=== PATIENT | female | born 1935 | race Caucasian/White ===

== ENCOUNTER 2017-10-14 04:48 | Emergency (ER) | payer MEDICARE, OTHER ==
[2017-10-14 05:31] LABS: ABSOLUTE BASOPHILS # (AUTO) 0.1 10^3/uL (0.0-0.2); ABSOLUTE LYMPHOCYTES (AUTO) 1.3 10^3/uL (0.5-4.7); ABSOLUTE MONOCYTES (AUTO) 0.6 10^3/uL (0.1-1.4); ABSOLUTE NEUT (AUTO) 8.4 10^3/uL (1.7-8.2); BASOPHILS % (AUTO) 0.9 % (0-2); EOSINOPHILS % (AUTO) 0.5 % (0-6); HEMATOCRIT 39.4 % (36.0-47.0); HEMOGLOBIN 13.2 g/dL (12.0-15.5); LYMPHOCYTES % (AUTO) 12.7 % (13-45); MEAN CORPUSCULAR HEMOGLOBIN 31.4 pg (27.0-33.4); MEAN CORPUSCULAR HGB CONC 33.6 g/dL (32.0-36.0); MEAN CORPUSCULAR VOLUME 93 fl (80-97); MONOCYTES % (AUTO) 5.9 % (3-13); PLATELET COUNT 138 10^3/uL (150-450); RED BLOOD COUNT 4.21 10^6/uL (3.72-5.28); RED CELL DISTRIBUTION WIDTH 13.1 % (11.5-14.0); TOTAL CELLS COUNTED % (AUTO) 100 %; WHITE BLOOD COUNT 10.5 10^3/uL (4.0-10.5)
--- NOTE | 2017-10-14 05:39 | ER Document Report ---
ED Medical Screen (RME) - General Chief Complaint: Abdominal Pain Stated Complaint: ABDOMINAL PAIN Time Seen by Provider: 10/14/17 04:52 Notes: 82-year-old female, comes by EMS for abdominal pain and dry heaving 4 since last night. Denies abnormal bowel movements or blood in stool, denies fever. Pain is in the left lower quadrant. Denies current pain or nausea. Cholecystectomy, partial hysterectomy, no other reported abdominal surgeries. No history of atrial fibrillation. TRAVEL OUTSIDE OF THE [place] IN LAST 30 DAYS: No - Related Data Allergies/Adverse Reactions: No Known Allergies Allergy (Verified 10/14/17 05:05) Past Medical History Renal/ Medical History: Denies: Hx Peritoneal Dialysis Physical Exam - Vital signs Vitals: Temp Pulse Resp BP Pulse Ox 97.6 F 90 24 H 145/75 H 99 10/14/17 04:53 10/14/17 04:53 10/14/17 04:53 10/14/17 04:53 10/14/17 04:53 - Abdominal Tenderness: Tender - Tender left lower abdomen, otherwise soft benign abdomen Course - Re-evaluation Re-evalutation: Well-appearing patient, tender left lower quadrant, alert and talkative, beginning workup, patient declines nausea or pain medicine at this time. - Vital Signs Vital signs: Temp Pulse Resp BP Pulse Ox 97.6 F 90 24 H 145/75 H 99 10/14/17 04:53 10/14/17 04:53 10/14/17 04:53 10/14/17 04:53 10/14/17 04:53 - Laboratory Result Diagrams: 10/14/17 05:10 10/14/17 05:10 Laboratory results interpreted by me: 10/14/17 05:10 Plt Count 138 L Seg Neutrophils % 80.0 H Lymphocytes % 12.7 L Absolute Neutrophils 8.4 H Doctor's Discharge - Discharge Referrals: LORI WHITE PA-C [Primary Care Provider] - Follow up as needed
[2017-10-14 05:55] LABS: ALANINE AMINOTRANSFERASE 25 U/L (9-52); ALBUMIN 3.6 g/dL (3.5-5.0); ALKALINE PHOSPHATASE 45 U/L (38-126); ANION GAP 10 (5-19); ASPARTATE AMINO TRANSFERASE 34 U/L (14-36); BILIRUBIN,DIRECT 0.3 mg/dL (0.0-0.4); BILIRUBIN,TOTAL 0.3 mg/dL (0.2-1.3); BLOOD UREA NITROGEN 29 mg/dL (7-20); CALCIUM 9.4 mg/dL (8.4-10.2); CARBON DIOXIDE 29 mmol/L (22-30); CHLORIDE 100 mmol/L (98-107); GLUCOSE 101 mg/dL (75-110); LIPASE 312.3 U/L (23-300); POTASSIUM 4.6 mmol/L (3.6-5.0); SODIUM 139.1 mmol/L (137-145); TOTAL PROTEIN 6.4 g/dL (6.3-8.2)
--- NOTE | 2017-10-14 06:17 | ER Document Report ---
ED General - General Chief Complaint: Abdominal Pain Stated Complaint: ABDOMINAL PAIN Time Seen by Provider: 10/14/17 04:52 Mode of Arrival: Medic Information source: Patient Notes: 82-year-old female presents emergency department by EMS for complaints of left lower quadrant pain that started yesterday. Patient describes the pain as a sharp and stabbing sensation localized in the left lower quadrant. No radiation. No alleviating or exacerbating factors. Patient is having some nausea and dry heaves associated with the pain. She denies any diarrhea, constipation, dysuria, hematuria, melena, hematochezia. Patient states that she has had gallbladder surgery on her abdomen previously. No other surgeries. TRAVEL OUTSIDE OF THE [place] IN LAST 30 DAYS: No - HPI Onset: Yesterday Onset/Duration: Gradual Quality of pain: Sharp, Stabbing Severity: Moderate Associated symptoms: Nausea, Vomiting Exacerbated by: Denies Relieved by: Denies Similar symptoms previously: No Recently seen / treated by doctor: No - Related Data Allergies/Adverse Reactions: No Known Allergies Allergy (Verified 10/14/17 05:05) Past Medical History - General Information source: Patient - Social History Smoking Status: Former Smoker Family History: Reviewed & Not Pertinent Patient has suicidal ideation: No Patient has homicidal ideation: No Renal/ Medical History: Denies: Hx Peritoneal Dialysis Review of Systems - Review of Systems Constitutional: No symptoms reported EENT: No symptoms reported Cardiovascular: No symptoms reported Respiratory: No symptoms reported Gastrointestinal: Abdominal pain, Nausea, Vomiting Genitourinary: No symptoms reported Musculoskeletal: No symptoms reported Skin: No symptoms reported Neurological/Psychological: No symptoms reported -: Yes All other systems reviewed and negative Physical Exam - Vital signs Vitals: Temp Pulse Resp BP Pulse Ox 97.6 F 90 24 H 145/75 H 99 10/14/17 04:53 10/14/17 04:53 10/14/17 04:53 10/14/17 04:53 10/14/17 04:53 Interpretation: Normal - Notes Notes: PHYSICAL EXAMINATION: GENERAL: Well-appearing, well-nourished and in no acute distress. HEAD: Atraumatic, normocephalic. EYES: Pupils equal round and reactive to light, extraocular movements intact, conjunctiva are normal. ENT: Nares patent, oropharynx clear without exudates. Moist mucous membranes. NECK: Normal range of motion, supple without lymphadenopathy LUNGS: Breath sounds clear to auscultation bilaterally and equal. No wheezes rales or rhonchi. HEART: Regular rate and rhythm without murmurs ABDOMEN: Soft, tenderness to palpation in the left lower quadrant., nondistended abdomen. No guarding, no rebound. No masses appreciated. Female : deferred Musculoskeletal: Normal range of motion, no pitting or edema. No cyanosis. NEUROLOGICAL: Cranial nerves grossly intact. Normal speech, normal gait. Normal sensory, motor exams PSYCH: Normal mood, normal affect. SKIN: Warm, Dry, normal turgor, no rashes or lesions noted. Course - Re-evaluation Re-evalutation: 10/14/17 10:23 Labs and imaging obtained. White blood cell count is within normal limits. CT abdomen pelvis done. No acute process identified. Urinalysis is remarkable for signs of urinary tract infection. Patient given a gram of Rocephin while in the emergency department. I will discharge her home on antibiotic medication. Patient instructed to take the medication as directed, to follow- up with her primary care physician this week, and to return to the emergency department for worsening symptoms. Patient is agreeable with plan of care. - Vital Signs Vital signs: Temp Pulse Resp BP Pulse Ox 98.2 F 74 18 109/50 L 94 10/14/17 08:52 10/14/17 08:52 10/14/17 08:52 10/14/17 08:52 10/14/17 08:52 - Laboratory Result Diagrams: 10/14/17 05:10 10/14/17 05:10 Laboratory results interpreted by me: 10/14/17 10/14/17 10/14/17 05:10 05:10 08:55 Plt Count 138 L Seg Neutrophils % 80.0 H Lymphocytes % 12.7 L Absolute Neutrophils 8.4 H BUN 29 H Est GFR (Non-Af Amer) 54 L Lipase 312.3 H Urine Nitrite POSITIVE H Ur Leukocyte Esterase MODERATE H Urine Ascorbic Acid 40 H Discharge - Discharge Clinical Impression: Urinary tract infection Qualifiers: Urinary tract infection type: site unspecified Hematuria presence: without hematuria Qualified Code(s): N39.0 - Urinary tract infection, site not specified Disposition: HOME, SELF-CARE Instructions: Urinary Tract Infection ([facility]) Prescriptions: Cephalexin Monohydrate [Keflex 500 mg Capsule] 500 mg PO Q6H 7 Days #28 capsule Referrals: LORI WHITE PA-C [Primary Care Provider] - Follow up as needed
[2017-10-14 09:21] LABS: APPEARANCE,URINE SLIGHTLY-CLOUDY; BILIRUBIN,URINE NEGATIVE (NEGATIVE); COLOR,URINE YELLOW; GLUCOSE, URINE NEGATIVE (NEGATIVE); KETONES,URINE NEGATIVE (NEGATIVE); LEUKOCYTE ESTERASE,URINE MODERATE (NEGATIVE); NITRITE,URINE POSITIVE (NEGATIVE); PROTEIN,URINE NEGATIVE (NEGATIVE); URINE SPECIFIC GRAVITY 1.015; UROBILINOGEN,URINE NEGATIVE mg/dL (<2.0)
--- NOTE | 2017-10-14 10:17 | RADIOLOGY REPORT (SQ) ---
EXAM DESCRIPTION: CT ABD/PELVIS WITH IV ORAL COMPLETED DATE/TIME: 10/14/2017 10:02 am REASON FOR STUDY: LLQ abdominal pain COMPARISON: None. TECHNIQUE: CT scan of the abdomen and pelvis performed using helical scanning technique with dynamic intravenous contrast injection. Patient drank oral contrast. Images reviewed with lung, soft tissue , and bone windows. Reconstructed coronal and sagittal MPR images reviewed. Delayed images for evalua tion of the urinary system also acquired. All images stored on PACS. All CT scanners at this facility use dose modulation, iterative reconstruction, and/or weight based d osing when appropriate to reduce radiation dose to as low as reasonably achievable (ALARA). [facility]: Dose Right [facility]: CareDose [facility]: Dose Right [facility]: Teradose 4D [facility]: myParcelDelivery CONTRAST TYPE AND DOSE: contrast/concentration: Isovue 370.00 mg/ml; Total Contrast Delivered: 39.0 ml; Total Saline Delivered: 65.0 ml RENAL FUNCTION: Creatinine 1.0 RADIATION DOSE: CT Rad equipment meets quality standard of care and radiation dose reduction techniq ues were employed. CTDIvol: 4.8 mGy. DLP: 834 mGy-cm.. LIMITATIONS: None. FINDINGS: LOWER CHEST: No significant findings. No nodules or infiltrates. LIVER: Normal size. No masses. Benign prominence of the common duct and mild prominence of the intra hepatic ducts post cholecystectomy. SPLEEN: Normal size. No focal lesions. PANCREAS: No masses. No significant calcifications. No adjacent inflammation or peripancreatic fluid collections. Pancreatic duct not dilated. GALLBLADDER: Surgically absent ADRENAL GLANDS: No significant masses or asymmetry. RIGHT KIDNEY AND URETER: No solid masses. Multiple right renal cortical cysts, largest is 3 cm in th e right upper pole kidney. No significant calcifications. No hydronephrosis or hydroureter. LEFT KIDNEY AND URETER: No solid masses. Multiple left renal cortical cysts, the largest is 1 cm in size in the left upper pole kidney. No significant calcifications. No hydronephrosis or hydrourete r. AORTA AND VESSELS: Heavily calcified abdominal aorta and proximal visceral arteries. No abdominal ao rtic dissection or aneurysm. RETROPERITONEUM: No retroperitoneal adenopathy, hemorrhage or masses. BOWEL AND PERITONEAL CAVITY: Patient drank oral contrast. No CT evidence of bowel obstruction. No s ignificant colonic diverticulosis. No free intraperitoneal air or fluid. APPENDIX: Normal. PELVIS: Post hysterectomy ABDOMINAL WALL: No masses. No hernias. BONES: No significant or acute findings. OTHER: No other significant finding. IMPRESSION: NO SIGNIFICANT OR ACUTE FINDING IN THE ABDOMEN OR PELVIS ON CT SCAN WITH IV CONTRAST. TECHNICAL DOCUMENTATION: JOB ID: [id number] Quality ID # [id number]: Final reports with documentation of one or more dose reduction techniques (e.g., Au tomated exposure control, adjustment of the mA and/or kV according to patient size, use of iterative reconstruction technique) 2010 [employer]- All Rights Reserved Reading location - IP/workstation name: [email or web address]
[2017-10-14] MEDS ORDERED: CEFTRIAXONE INJ 1000 MG VIAL IV ONE (10:22)
[2017-10-14 12:21] VITALS: BP 101/46
== END 2017-10-14 12:21 | disposition home or self-care (01) ==
LOC: ER 04:48
DX: N39.0 Urinary tract infection, site not specified (principal); R10.32 Left lower quadrant pain; R11.2 Nausea with vomiting, unspecified; Z87.891 Personal history of nicotine dependence
CPT/HCPCS: 99284; 51701; 96365; 36415; 87040; 83605; 83690; 85025; 87077; 80053; 81001; 87186; 74177; J0696

== ENCOUNTER 2018-01-18 18:53 | Inpatient (IN) | payer MEDICARE, OTHER ==
[2018-01-18] MEDS ORDERED: MORPHINE SULFATE 10 MG/ML INJ IV ONE (19:42)
[2018-01-18] MEDS ORDERED: ONDANSETRON HCL INJ/PF 4 MG/2 ML SDV IV ONE (19:42)
--- NOTE | 2018-01-18 19:45 | ER Document Report ---
ED Medical Screen (RME) - General Chief Complaint: Abdominal Pain Stated Complaint: ABDOMINAL PAIN Time Seen by Provider: 01/18/18 19:42 Mode of Arrival: Ambulatory Information source: Patient Notes: 81-year-old female presents with left lower quadrant pain that started today. She describes the pain as a constant stabbing pain. Patient has had associated nausea, vomiting. She does admit to prior similar symptoms when she was diagnosed with a urinary tract infection in October 2017. I have greeted and performed a rapid initial assessment of this patient. A comprehensive ED assessment and evaluation of the patient, analysis of test results and completion of medical decision making process we will be contacted by additional ED providers. PHYSICAL EXAMINATION: Vital signs reviewed GENERAL: Ill-appearing, bent over in pain, actively vomiting, moderate distress LUNGS: No respiratory distress NEUROLOGICAL: A and O x3 TRAVEL OUTSIDE OF THE [place] IN LAST 30 DAYS: No - HPI Onset: This morning Onset/Duration: Gradual, Persistent, Worse Quality of pain: Stabbing Severity: Moderate Associated Symptoms: Abdominal pain, Nausea, Vomiting Exacerbated by: Denies Relieved by: Denies Similar symptoms previously: Yes Recently seen / treated by doctor: No - Related Data Smoking: Cigarettes Frequency of alcohol use: None Drug Abuse: None Allergies/Adverse Reactions: No Known Allergies Allergy (Verified 10/14/17 05:05) Past Medical History - Social History Chew tobacco use (# tins/day): No Frequency of alcohol use: Rare Drug Abuse: None Renal/ Medical History: Denies: Hx Peritoneal Dialysis Physical Exam - Vital signs Vitals: Temp Pulse Resp BP Pulse Ox 98.1 F 102 H 20 172/70 H 98 01/18/18 19:01 01/18/18 19:01 01/18/18 19:01 01/18/18 19:01 01/18/18 19:01 Course - Vital Signs Vital signs: Temp Pulse Resp BP Pulse Ox 98.1 F 102 H 20 172/70 H 98 01/18/18 19:01 01/18/18 19:01 01/18/18 19:01 01/18/18 19:01 01/18/18 19:01 Doctor's Discharge - Discharge Referrals: LORI WHITE PA-C [Primary Care Provider] - Follow up as needed
[2018-01-18 20:36] LABS: ALANINE AMINOTRANSFERASE 31 U/L (9-52); ALBUMIN 4.4 g/dL (3.5-5.0); ALKALINE PHOSPHATASE 57 U/L (38-126); ANION GAP 14 (5-19); ASPARTATE AMINO TRANSFERASE 40 U/L (14-36); BILIRUBIN,DIRECT 0.3 mg/dL (0.0-0.4); BILIRUBIN,TOTAL 0.4 mg/dL (0.2-1.3); BLOOD UREA NITROGEN 21 mg/dL (7-20); CALCIUM 10.3 mg/dL (8.4-10.2); CARBON DIOXIDE 27 mmol/L (22-30); CHLORIDE 94 mmol/L (98-107); GLUCOSE 105 mg/dL (75-110); LIPASE 460.9 U/L (23-300); POTASSIUM 4.9 mmol/L (3.6-5.0); SODIUM 134.7 mmol/L (137-145); TOTAL PROTEIN 7.6 g/dL (6.3-8.2)
[2018-01-18 21:05] LABS: ABSOLUTE EOSINOPHILS # (AUTO) 0.1 10^3/uL (0.0-0.6); ABSOLUTE MONOCYTES (AUTO) 0.4 10^3/uL (0.1-1.4); ABSOLUTE NEUT (AUTO) 8.5 10^3/uL (1.7-8.2); BASOPHILS % (AUTO) 0.5 % (0-2); EOSINOPHILS % (AUTO) 0.8 % (0-6); HEMATOCRIT 41.4 % (36.0-47.0); HEMOGLOBIN 14.3 g/dL (12.0-15.5); LYMPHOCYTES % (AUTO) 10.2 % (13-45); MEAN CORPUSCULAR HEMOGLOBIN 32.5 pg (27.0-33.4); MEAN CORPUSCULAR HGB CONC 34.6 g/dL (32.0-36.0); MEAN CORPUSCULAR VOLUME 94 fl (80-97); MONOCYTES % (AUTO) 3.7 % (3-13); PLATELET COUNT 112 10^3/uL (150-450); RED BLOOD COUNT 4.41 10^6/uL (3.72-5.28); RED CELL DISTRIBUTION WIDTH 12.7 % (11.5-14.0); SEGMENTED NEUTROPHILS % (AUTO) 84.8 % (42-78); TOTAL CELLS COUNTED % (AUTO) 100 %
[2018-01-18] MEDS ORDERED: ONDANSETRON HCL INJ/PF 4 MG/2 ML SDV ONE (21:08)
--- NOTE | 2018-01-18 21:44 | ER Document Report ---
ED General - General Chief Complaint: Abdominal Pain Stated Complaint: ABDOMINAL PAIN Time Seen by Provider: 01/18/18 19:42 Mode of Arrival: Ambulatory Notes: Patient is an 81-year-old female with a past medical history of chronic tobacco abuse, severe malnourishment, who presents with approximately 8 hours of left lower quadrant abdominal pain, nausea and vomiting. She states that the pain started relatively abruptly and has been progressively worsening since that time. She describes it as a dull, throbbing, aching pain to her left lower abdomen. Nothing improves or worsens this pain. She denies a history of similar pain in the past. She has not seen her general doctor regarding today' s concerns. She denies fever or constitutional symptoms. No dysuria or diarrhea. TRAVEL OUTSIDE OF THE [place] IN LAST 30 DAYS: No - Related Data Allergies/Adverse Reactions: No Known Allergies Allergy (Verified 10/14/17 05:05) Past Medical History - General Information source: Patient - Social History Smoking Status: Current Every Day Smoker Chew tobacco use (# tins/day): No Frequency of alcohol use: Rare Drug Abuse: None Lives with: Family Family History: Reviewed & Not Pertinent Patient has suicidal ideation: No Patient has homicidal ideation: No Renal/ Medical History: Denies: Hx Peritoneal Dialysis Review of Systems - Review of Systems Notes: Constitutional: Negative for fever. HENT: Negative for sore throat. Eyes: Negative for visual changes. Cardiovascular: Negative for chest pain. Respiratory: Negative for shortness of breath. Gastrointestinal: Positive for abdominal pain and vomiting Genitourinary: Negative for dysuria. Musculoskeletal: Negative for back pain. Skin: Negative for rash. Neurological: Negative for headaches, weakness or numbness. 10 point ROS negative except as marked above and in HPI. Physical Exam - Vital signs Vitals: Temp Pulse Resp BP Pulse Ox 98.1 F 102 H 20 172/70 H 98 01/18/18 19:01 01/18/18 19:01 01/18/18 19:01 01/18/18 19:01 01/18/18 19:01 Interpretation: Hypertensive, Tachycardic Notes: PHYSICAL EXAMINATION: GENERAL: Cachectic but in no acute distress HEAD: Atraumatic, normocephalic. EYES: Pupils equal round and reactive to light, extraocular movements intact, sclera anicteric, conjunctiva are normal. ENT: nares patent, oropharynx clear without exudates. Moderately dry mucous membranes. NECK: Normal range of motion, supple without lymphadenopathy LUNGS: Breath sounds clear to auscultation bilaterally and equal. No wheezes rales or rhonchi. HEART: Regular rate and rhythm without murmurs ABDOMEN: Soft, mild focal tenderness to the left lower quadrant, no other localized areas of tenderness normoactive bowel sounds. No guarding, no rebound. No masses appreciated. EXTREMITIES: Normal range of motion, no pitting or edema. No cyanosis. NEUROLOGICAL: No focal neurological deficits. Moves all extremities spontaneously and on command. PSYCH: Normal mood, normal affect. SKIN: Warm, Dry, normal turgor, no rashes or lesions noted. Course - Re-evaluation Re-evalutation: 01/18/18 21:43 Presentation of an emaciated 81-year-old female in no distress with associated left lower quadrant abdominal pain and vomiting. History and exam most consistent with acute diverticulitis. Alternative considerations would include localized colitis, less likely mesenteric ischemia. I do not suspect an atypical presentation of ACS. Will proceed with CT of the abdomen and pelvis, labs and reassess the patient 01/18/18 22:18 CT the abdomen pelvis shows an acute bowel obstruction and the patient is not vomiting at a much more frequent interval. She does have a past surgical history of a cholecystectomy and it appears that this may be secondary to adhesions. I have discussed with the surgeon Dr. Gould who has accepted the patient and will come to the bedside to assess her. - Vital Signs Vital signs: Temp Pulse Resp BP Pulse Ox 98.1 F 102 H 20 172/70 H 98 01/18/18 19:01 01/18/18 19:01 01/18/18 19:01 01/18/18 19:01 01/18/18 19:01 - Laboratory Result Diagrams: 01/18/18 19:58 01/18/18 19:58 Laboratory results interpreted by me: 01/18/18 01/18/18 19:58 19:58 Plt Count 112 L Seg Neutrophils % 84.8 H Lymphocytes % 10.2 L Absolute Neutrophils 8.5 H Sodium 134.7 L Chloride 94 L BUN 21 H Calcium 10.3 H AST 40 H Lipase 460.9 H - Diagnostic Test Radiology reviewed: Reports reviewed Discharge - Discharge Clinical Impression: Small bowel obstruction, Abdominal pain, left lower quadrant Nausea and vomiting Qualifiers: Vomiting type: unspecified Vomiting Intractability: non-intractable Qualified Code(s): R11.2 - Nausea with vomiting, unspecified Condition: Fair Disposition: ADMITTED INPATIENT Admitting Provider: Surgicalist Unit Admitted: Surgical Floor Referrals: LORI WHITE PA-C [Primary Care Provider] - Follow up as needed
--- NOTE | 2018-01-18 21:51 | RADIOLOGY REPORT (SQ) ---
EXAM DESCRIPTION: CT ABDOMEN PELVIS WITH IV CONTRAST COMPLETED DATE/TME: 01/18/2018 20:42 CLINICAL HISTORY: 81 years, Female, llq ab pain This exam was performed according to our departmental dose-optimization program which includes automated exposure control, adjustment of the mA and/or kVp according to patient size and/or use of iterative reconstruction technique where applicable. FINDINGS: Visualized lung bases are within normal limits. Liver, spleen, pancreas, adrenal glands are within normal limits. Status post cholecystectomy. Mild central biliary dilatation, tapers to normal diameter at the level of the ampulla, likely postcholecystectomy.. Kidneys demonstrate multiple small bilateral renal cysts. No hydronephrosis. There are mildly dilated loops of small bowel noted with transition point in the mid pelvis to decompressed loops of small bowel. Transition point appears to be in the proximal to mid ileum. There are air-fluid levels noted in the proximal bowel loops. Mild mesenteric edema in the mid pelvis near the point of transition. No significant free fluid or free air. No fluid collections. IMPRESSION: Findings suspicious for moderate grade mid small bowel obstruction in level of the proximal to mid ileum. This likely due to adhesions. No abscess.
[2018-01-18] MEDS ORDERED: MIDAZOLAM 2 MG/2 ML INJ IV ONE (22:16)
[2018-01-18] MEDS ORDERED: KETOROLAC TROMETHAMINE INJ/PF 30 MG/1 ML SDV IV ONE (22:16)
--- NOTE | 2018-01-18 23:00 | PDOC H&P ---
History of Present Illness Admission Date/PCP: LORI WHITE PA-C Patient complains of: LLQ pains History of Present Illness: BECKIE HERNANDEZ is a 81 year old female suddenly c/o LLQ pains at 12 noon associated with N/V. Pains are steady.Last BM was yesterday. Denies fever/ chills. Past Medical History Cardiac Medical History: Reports: Hyperlipidema Past Surgical History Past Surgical History: Reports: Cholecystectomy - laparoscopic about 20 years ago, Other - Biopsy of Cervix Social History Lives with: Family Smoking Status: Current Every Day Smoker Frequency of Alcohol Use: None Hx Recreational Drug Use: Yes Family History Family History: Reviewed & Not Pertinent Parental Family History Reviewed: Yes Children Family History Reviewed: No Sibling(s) Family History Reviewed.: No Medication/Allergy Home Medications: Cephalexin Monohydrate [Keflex 500 mg Capsule] 500 mg PO Q6H 7 Days #28 capsule 10/14/17 Allergies/Adverse Reactions: No Known Allergies Allergy (Verified 10/14/17 05:05) Review of Systems Constitutional: PRESENT: as per HPI Ears: PRESENT: other - no visual/hearing changes Nose, Mouth, and Throat: PRESENT: other - c/o dry mouth Cardiovascular: PRESENT: other - no chest pains/cough Genitourinary: PRESENT: other - no dysuria Neurological: PRESENT: other - no seizures Physical Exam Vital Signs: Temp Pulse Resp BP Pulse Ox 98.1 F 102 H 20 172/70 H 98 01/18/18 19:01 01/18/18 19:01 01/18/18 19:01 01/18/18 19:01 01/18/18 19:01 Intake & Output 01/17/18 01/18/18 01/19/18 06:59 06:59 06:59 Weight 31 kg General appearance: PRESENT: mild distress Head exam: PRESENT: atraumatic Eye exam: PRESENT: conjunctiva pink Mouth exam: PRESENT: dry mucosa Neck exam: PRESENT: full ROM Respiratory exam: PRESENT: clear to auscultation chester Cardiovascular exam: PRESENT: tachycardia Pulses: PRESENT: normal radial pulses Vascular exam: PRESENT: normal capillary refill GI/Abdominal exam: PRESENT: soft, tenderness - LLQ Rectal exam: PRESENT: deferred Extremities exam: PRESENT: full ROM Musculoskeletal exam: PRESENT: ambulatory Neurological exam: PRESENT: alert, oriented to person, oriented to place, oriented to time, oriented to situation Psychiatric exam: PRESENT: appropriate affect Skin exam: PRESENT: normal color, warm Results Laboratory Results: 01/18/18 19:58 01/18/18 19:58 01/18/18 01/18/18 19:58 19:58 WBC 10.0 RBC 4.41 Hgb 14.3 Hct 41.4 MCV 94 MCH 32.5 MCHC 34.6 RDW 12.7 Plt Count 112 L Seg Neutrophils % 84.8 H Lymphocytes % 10.2 L Monocytes % 3.7 Eosinophils % 0.8 Basophils % 0.5 Absolute Neutrophils 8.5 H Absolute Lymphocytes 1.0 Absolute Monocytes 0.4 Absolute Eosinophils 0.1 Absolute Basophils 0.0 Sodium 134.7 L Potassium 4.9 Chloride 94 L Carbon Dioxide 27 Anion Gap 14 BUN 21 H Creatinine 0.90 Est GFR ( Amer) > 60 Est GFR (Non-Af Amer) > 60 Glucose 105 Calcium 10.3 H Total Bilirubin 0.4 AST 40 H ALT 31 Alkaline Phosphatase 57 Total Protein 7.6 Albumin 4.4 Lipase 460.9 H Impressions: Abdomen/Pelvis CT 01/18/18 20:42 IMPRESSION: Findings suspicious for moderate grade mid small bowel obstruction in level of the proximal to mid ileum. This likely due to adhesions. No abscess. Assessment & Plan - Time Time Spent: 30 to 50 Minutes - Inpatient Certification Medical Necessity: Need For IV Fluids, Need for Pain Control, Risk of Complication if Not Cared For in Hospital - Plan Summary Plan Summary: NGT Hydrate Possible SBFT with gastrograffin if has not resolved SBO
--- NOTE | 2018-01-18 23:39 | RADIOLOGY REPORT (SQ) ---
Portable chest Compared to chest radiograph dated 11/03/2015. HISTORY: NG tube placement. FINDINGS: NG tube is in place with tip below the diaphragm in the stomach. Lungs are clear. No pleural effusions. Moderately dilated loops of small bowel are noted below the diaphragm. IMPRESSION: Enteric tube in place.
[2018-01-19] MEDS ORDERED: KETOROLAC TROMETHAMINE INJ/PF 30 MG/1 ML SDV IV PRN (00:26)
[2018-01-19] MEDS ORDERED: NORMAL SALINE 1000 ML 1,000 ML IV PRN (00:26)
[2018-01-19 06:02] LABS: HEMATOCRIT 36.4 % (36.0-47.0); HEMOGLOBIN 12.6 g/dL (12.0-15.5); MEAN CORPUSCULAR HEMOGLOBIN 32.2 pg (27.0-33.4); MEAN CORPUSCULAR HGB CONC 34.6 g/dL (32.0-36.0); MEAN CORPUSCULAR VOLUME 93 fl (80-97); PLATELET COUNT 110 10^3/uL (150-450); RED BLOOD COUNT 3.92 10^6/uL (3.72-5.28); RED CELL DISTRIBUTION WIDTH 12.5 % (11.5-14.0); WHITE BLOOD COUNT 8.6 10^3/uL (4.0-10.5)
[2018-01-19 07:24] LABS: ALANINE AMINOTRANSFERASE 26 U/L (9-52); ALBUMIN 3.1 g/dL (3.5-5.0); ALKALINE PHOSPHATASE 40 U/L (38-126); ANION GAP 11 (5-19); ASPARTATE AMINO TRANSFERASE 33 U/L (14-36); BILIRUBIN,DIRECT 0.3 mg/dL (0.0-0.4); BILIRUBIN,TOTAL 0.4 mg/dL (0.2-1.3); BLOOD UREA NITROGEN 21 mg/dL (7-20); CALCIUM 8.9 mg/dL (8.4-10.2); CARBON DIOXIDE 26 mmol/L (22-30); CHLORIDE 98 mmol/L (98-107); GLUCOSE 69 mg/dL (75-110); POTASSIUM 4.5 mmol/L (3.6-5.0); SODIUM 134.5 mmol/L (137-145); TOTAL PROTEIN 5.7 g/dL (6.3-8.2)
--- NOTE | 2018-01-19 09:12 | PDOC PROGRESS REPORT ---
Subjective Progress Note for:: 01/19/18 Subjective:: Patient still complaining of left lower quadrant pain; watery blood-tinged nasogastric drainage. Reason For Visit: PARTIAL SMALL BOWEL OBSTRUCTION DUE TO ADHESIONS Physical Exam Vital Signs: Temp Pulse Resp BP Pulse Ox 98.2 F 77 16 108/51 L 98 01/19/18 08:11 01/19/18 08:11 01/19/18 08:11 01/19/18 08:11 01/19/18 08:11 Intake & Output 01/18/18 01/19/18 01/20/18 06:59 06:59 06:59 Intake Total 0 Output Total 200 Balance -200 Weight 34.4 kg General appearance: PRESENT: mild distress GI/Abdominal exam: PRESENT: other - Abdomen scaphoid, hypoactive bowel sounds, no peritoneal signs no rigidity minimal lower quadrant tenderness. No distention. Bowel sounds hypoactive Results Laboratory Results: 01/19/18 05:10 01/19/18 05:10 01/19/18 01/19/18 05:10 05:10 WBC 8.6 RBC 3.92 Hgb 12.6 Hct 36.4 MCV 93 MCH 32.2 MCHC 34.6 RDW 12.5 Plt Count 110 L Sodium 134.5 L Potassium 4.5 Chloride 98 Carbon Dioxide 26 Anion Gap 11 BUN 21 H Creatinine 0.82 Est GFR ( Amer) > 60 Est GFR (Non-Af Amer) > 60 Glucose 69 L Calcium 8.9 Total Bilirubin 0.4 AST 33 ALT 26 Alkaline Phosphatase 40 Total Protein 5.7 L Albumin 3.1 L Impressions: Chest X-Ray 01/18/18 00:00 IMPRESSION: Enteric tube in place. Abdomen/Pelvis CT 01/18/18 20:42 IMPRESSION: Findings suspicious for moderate grade mid small bowel obstruction in level of the proximal to mid ileum. This likely due to adhesions. No abscess. Assessment & Plan - Diagnosis (1) Small bowel obstruction Is this a current diagnosis for this admission?: Yes Plan: Impression: Patient no worse, possibly improved clinically; suspect colonic source of problem secondary to constipation. Recommendations: 1. Proceed with upper GI and small bowel follow-through. 2. We will increase IV fluids. 3. Hold off on any narcotics.
[2018-01-19] MEDS: KETOROLAC TROMETHAMINE INJ/PF 30 MG/1 ML SDV IV PRN ×3 (10:20→23:26)
[2018-01-19] MEDS: ONDANSETRON HCL INJ/PF 4 MG/2 ML SDV IV PRN (11:54)
[2018-01-19] MEDS: DEXTROSE 5%-WATER 1000 ML 1,000 ML IV PRN ×2 (13:00→19:35)
[2018-01-19] MEDS ORDERED: PROMETHAZINE HCL 25 MG SUPP.RECT PR ONE (15:00)
--- NOTE | 2018-01-19 16:08 | RADIOLOGY REPORT (SQ) ---
EXAM DESCRIPTION: SMALL BOWEL SERIES COMPLETED DATE/TIME: 01/19/2018 3:54 pm REASON FOR STUDY: Identify area of obstruction COMPARISON: CT abdomen pelvis 01/18/2018, 10/14/2017 FLUOROSCOPY TIME: No fluoro 9 KUB images saved to PACS. LIMITATIONS: None. PROCEDURE: Initial director of institutional sales image of abdomen acquired, followed by administration of Gastrografin oral contrast into the patient's pre-existing nasogastric tube. Serial radiographic images acquired. Flu oroscopic images recorded of the terminal ileum and other indicated areas. All images stored on PACS . FINDINGS: Custody Officer film demonstrates nasogastric tube tip and side port in the stomach. Clips right up per quadrant post cholecystectomy. Bladder distended with urine opacified with IV contrast from CT e xam 01/18/2018 2124 hours. Custody Officer film demonstrates moderate gaseous distension of small bowel loops in the periumbilical region. Nondistended stomach and colon. Gastrografin was instilled through the patient's nasogastric tube. There is move passage of contrast into the duodenum and proximal jejunum which is not dilated. Distal small bowel is mildly dilated w ith air-fluid levels. At 6 hours 15 minutes, sequential films were stopped. There is Gastrografin in mid and distal dilate d small bowel loops. No contrast in the colon. This could be due to ileus or distal small bowel obs truction. Findings discussed with Dr. Whitmore. Follow-up KUB in the morning. IMPRESSION: Persistent dilated distal small bowel loops. By 6 hours and 15 minutes, contrast had no t yet reached the colon. Plan for KUB in the morning. Results discussed with Dr. Whitmore COMMENT: Quality ID [id number]: Final reports for procedures using fluoroscopy that document radiation exp osure indices, or exposure time and number of fluorographic images (if radiation exposure indices are not available) TECHNICAL DOCUMENTATION: JOB ID: [id number] [email or web address]- All Rights Reserved Reading location - IP/workstation name: [facility]-[email or web address]
[2018-01-19 17:34] LABS: APPEARANCE,URINE CLEAR; BILIRUBIN,URINE NEGATIVE (NEGATIVE); COLOR,URINE YELLOW; GLUCOSE, URINE NEGATIVE (NEGATIVE); KETONES,URINE 100 mg/dL (NEGATIVE); PROTEIN,URINE NEGATIVE (NEGATIVE); URINE SPECIFIC GRAVITY 1.028
[2018-01-19 17:35] LABS: LEUKOCYTE ESTERASE,URINE NEGATIVE (NEGATIVE); NITRITE,URINE NEGATIVE (NEGATIVE); UROBILINOGEN,URINE NEGATIVE mg/dL (<2.0)
[2018-01-20] MEDS: KETOROLAC TROMETHAMINE INJ/PF 30 MG/1 ML SDV IV PRN ×2 (04:25→10:31)
[2018-01-20] MEDS ORDERED: PHENYLEPHRINE HCL INJ/PF 10 MG/1 ML SDV ONE (08:04)
[2018-01-20] MEDS ORDERED: SUCCINYLCHOLINE CHLORIDE INJ 200 MG/10 ML VIAL ONE (08:04)
[2018-01-20] MEDS ORDERED: ROCURONIUM BROMIDE INJ 50 MG/5 ML VIAL IV ONE (08:04)
[2018-01-20 09:06] LABS: ABSOLUTE LYMPHOCYTES (AUTO) 0.9 10^3/uL (0.5-4.7); ABSOLUTE NEUT (AUTO) 10.7 10^3/uL (1.7-8.2); BASOPHILS % (AUTO) 0.2 % (0-2); EOSINOPHILS % (AUTO) 0.1 % (0-6); HEMATOCRIT 37.7 % (36.0-47.0); HEMOGLOBIN 13.3 g/dL (12.0-15.5); LYMPHOCYTES % (AUTO) 7.5 % (13-45); MEAN CORPUSCULAR HEMOGLOBIN 32.2 pg (27.0-33.4); MEAN CORPUSCULAR HGB CONC 35.2 g/dL (32.0-36.0); MEAN CORPUSCULAR VOLUME 92 fl (80-97); MONOCYTES % (AUTO) 7.9 % (3-13); PLATELET COUNT 102 10^3/uL (150-450); RED BLOOD COUNT 4.12 10^6/uL (3.72-5.28); RED CELL DISTRIBUTION WIDTH 12.5 % (11.5-14.0); SEGMENTED NEUTROPHILS % (AUTO) 84.3 % (42-78); TOTAL CELLS COUNTED % (AUTO) 100 %; WHITE BLOOD COUNT 12.6 10^3/uL (4.0-10.5)
[2018-01-20 09:21] LABS: BLOOD UREA NITROGEN 26 mg/dL (7-20); CALCIUM 8.8 mg/dL (8.4-10.2); CARBON DIOXIDE 32 mmol/L (22-30); CHLORIDE 82 mmol/L (98-107); GLUCOSE 127 mg/dL (75-110); POTASSIUM 3.4 mmol/L (3.6-5.0); SODIUM 123.6 mmol/L (137-145)
[2018-01-20 09:22] LABS: ANION GAP 10 (5-19)
[2018-01-20] MEDS: DEXTROSE 5%-WATER 1000 ML 1,000 ML IV PRN (09:53)
--- NOTE | 2018-01-20 10:09 | RADIOLOGY REPORT (SQ) ---
EXAM DESCRIPTION: KUB/ABDOMEN (SINGLE VIEW) COMPLETED DATE/TIME: 01/20/2018 9:04 am REASON FOR STUDY: follow up SBO COMPARISON: None. NUMBER OF VIEWS: One view. TECHNIQUE: Supine radiographic image of the abdomen acquired. LIMITATIONS: None. FINDINGS: BOWEL GAS PATTERN: Residual loops of contrast dilated small bowel loops within the central abdomen and pelvis measuring up to 3.3 cm. No evidence of contrast within the colon. Gas and stool throughout multiple loops of colonic bowel. CALCIFICATIONS: No suspicious calcifications. SOFT TISSUES: Atherosclerotic aorta. No focal mass identified. No large volume ascites. HARDWARE: Knees enteric tube tip overlies distal stomach. Prior cholecystectomy with surgical clips in the right upper quadrant. BONES: Lower lumbar spondylosis and facet arthropathy. No acute bony abnormality. OTHER: No other significant finding. IMPRESSION: Residual loops of contrast dilated small bowel within the central abdomen and pelvis sug gestive of mid/distal small bowel obstructive process. No contrast within the colon. TECHNICAL DOCUMENTATION: JOB ID: [id number] [employer]- All Rights Reserved Reading location - IP/workstation name: [email or web address]
[2018-01-20] MEDS ORDERED: DEXTROSE 5%-1/2 NORMAL SALINE 1,000 ML IV PRN (11:55)
[2018-01-20] MEDS: DEXTROSE 5%-NORMAL SALINE 1,000 ML IV PRN ×2 (12:15→20:51)
[2018-01-20] MEDS ORDERED: HYDROMORPHONE HCL INJ/PF 2 MG/ML AMPULE ONE ×2 (12:56→21:28)
[2018-01-20] MEDS ORDERED: HYDROMORPHONE HCL INJ/PF 2 MG/ML AMPULE IV ONE (13:00)
--- NOTE | 2018-01-20 19:52 | EKG REPORT ---
SEVERITY:- ABNORMAL ECG - SINUS RHYTHM LEFT ATRIAL ABNORMALITY NONSPECIFIC T ABNORMALITIES, ANT-LAT LEADS BORDERLINE PROLONGED QT INTERVAL : Confirmed by: Chinyere Poe MD 20-Jan-2018 19:52:02
[2018-01-20] MEDS ORDERED: PIPERACILLIN SODIUM/TAZOBACTAM 3.375 GM in NORMAL SALINE 100 ML IV PRN (21:00)
[2018-01-20] MEDS ORDERED: MIDAZOLAM 2 MG/2 ML INJ ONE (21:28)
[2018-01-20] MEDS ORDERED: PROPOFOL INJ 200 MG/20 ML VIAL IV ONE (21:28)
[2018-01-21] MEDS ORDERED: MORPHINE SULFATE 10 MG/ML INJ IV PRN ×2 (00:32→02:30)
[2018-01-21] MEDS ORDERED: MIDAZOLAM HCL 50 MG/100 ML RTUINJ ONE (00:54)
[2018-01-21] MEDS ORDERED: NOREPINEPHRINE BITARTRATE INJ/PF 4 MG/4 ML SDV IV ONE ×2 (01:17→08:11)
[2018-01-21] MEDS: DEXTROSE 5%-WATER 250 ML with NOREPINEPHRINE BITARTRATE 4 MG IV PRN ×6 (01:30→16:36)
[2018-01-21] MEDS: DEXTROSE 5%-LACTATED RINGERS 1,000 ML IV PRN ×3 (01:30→17:06)
[2018-01-21] MEDS: MIDAZOLAM HCL 50 MG/100 ML RTUINJ IV PRN ×2 (01:30→16:36)
[2018-01-21] MEDS ORDERED: PIPERACILLIN/TAZOBACTAM 3.375 GM VIAL IV PRN (01:39)
[2018-01-21] MEDS ORDERED: HYDROMORPHONE HCL INJ/PF 2 MG/ML AMPULE IV PRN ×2 (01:57→02:30)
--- NOTE | 2018-01-21 02:16 | RADIOLOGY REPORT (SQ) ---
EXAM DESCRIPTION: XR CHEST 1 VIEW COMPLETED DATE/TME: 01/21/2018 00:00 CLINICAL HISTORY: 82 years Female, Central line placement COMPARISON: 2 days prior. NUMBER OF VIEWS/TECHNIQUE: 1/AP FINDINGS: Increased lung volume, normal cardiac silhouette, tip of an endotracheal tube is 6.3 cm from the ace, atherosclerosis, left subclavian central line tip at the SVC, likely adequate enteric tube obscured distally. No pneumothorax. Stable bony thorax. IMPRESSION: Interval line/tube modification.
[2018-01-21] MEDS ORDERED: KETOROLAC TROMETHAMINE INJ/PF 30 MG/1 ML SDV IV PRN (02:30)
[2018-01-21] MEDS ORDERED: NORMAL SALINE 1000 ML 1,000 ML IV ONE (02:30)
[2018-01-21] MEDS ORDERED: PIPERACILLIN/TAZOBACTAM 3.375 GM VIAL IV ONE (03:21)
--- NOTE | 2018-01-21 03:26 | OPERATIVE REPORT E ---
Operative Report NAME: BECKIE HERNANDEZ : 01/20/1936 AGE: 81Y DATE OF SURGERY: 01/21/2018 ROOM: [facility] PREOPERATIVE DIAGNOSIS: POOR VEINS FOR IV ACCESS AND NEEDED PRESSORS FOR LOW BLOOD PRESSURE. SHE IS ALSO POST SMALL-BOWEL RESECTION FOR A CLOSED LOOP OBSTRUCTION. POSTOPERATIVE DIAGNOSIS: POOR VEINS FOR IV ACCESS AND NEEDED PRESSORS FOR LOW BLOOD PRESSURE. SHE IS ALSO POST SMALL-BOWEL RESECTION FOR A CLOSED LOOP OBSTRUCTION. OPERATION: Insertion of left subclavian vein triple-lumen catheter. SURGEON: CHIKIS PRITCHETT M.D. ANESTHESIA: Local. INDICATION: This is an 81-year-old female who just underwent resection of small bowel for a closed loop obstruction. The patient needed better IV access because she is going to need pressors. She has poor veins in her arm. PROCEDURE: The patient was placed in Trendelenburg position and the left low clavicle area prepped and draped in the usual sterile fashion. Local anesthesia infiltrated in the left infraclavicular area and the left subclavian vein was then punctured and guidewire passed through the needle towards the area of the superior vena cava. The needle was removed and the puncture site dilated. The dilator was removed and the triple-lumen catheter was inserted through the guidewire to a distance of about 16 cm. The 3 ports were then aspirated of blood easily and instilled saline easily. The catheter was then anchored to the skin with 3-0 silk. Biopatch placed at the insertion site and a transparent cell sterile dressing placed over the Biopatch and catheter. Chest x-ray was obtained right away and noted the catheter is in the superior vena cava with no evidence of pneumothorax. DICTATING PHYSICIAN: CHIKIS PRITCHETT M.D. [id number] PHY#: [id number] ID: [id number] JOB#: [id number] ACCT: [id number] cc:CHIKIS PRITCHETT M.D. >
[2018-01-21] MEDS: PIPERACILLIN SODIUM/TAZOBACTAM 3.375 GM in NORMAL SALINE 100 ML IV SCH ×4 (03:31→20:02)
--- NOTE | 2018-01-21 03:46 | OPERATIVE REPORT E ---
Operative Report NAME: BECKIE HERNANDEZ : 01/20/1936 AGE: 81Y DATE OF SURGERY: 01/20/2018 to 01/21/2018 ROOM: 610 PREOPERATIVE DIAGNOSIS: SMALL-BOWEL OBSTRUCTION. POSTOPERATIVE DIAGNOSIS: SMALL-BOWEL OBSTRUCTION DUE TO CLOSED LOOP OBSTRUCTION WITH STARTING GANGRENE OF BOWEL. OPERATION: Exploratory laparotomy, resection of small bowel and cecum, and ileal ascending colostomy anastomosis. SURGEON: CHIKIS PRITCHETT M.D. ANESTHESIA: General. INDICATION: This is an 81-year-old female who noted abdominal pains and nausea and vomiting on 01/18/18. She then underwent a CAT scan, which showed small-bowel obstruction. A followup Gastrografin swallow was done and showed dilated small bowel. A followup KUB was done on the morning of 01/20/18, which showed there is no contrast in the large bowel yet. In the meantime, the patient continued to have some lower abdominal pains, and this time her white count went up to 12,000. Also, she has not passed any flatus. Because of these findings, the patient was then taken to the OR on the night of 01/20/18 for exploratory laparotomy. PROCEDURE: After adequate general anesthesia, the patient was placed in supine position and the abdomen prepped and draped in the usual sterile fashion. Appropriate time-out was then called. Next, a midline incision was then made just at the umbilicus towards the symphysis pubis. The small bowel was inspected and on the right lower quadrant the small bowel noted to be dusky and starting gangrene. There was also a lot of dark liquified blood in the pelvis. The area was palpated and appears to have a band from the pelvis crossing the loop of bowel, primarily the ileum that was close to the ileocecal valve. The band was then divided and the closed loop bowel was lifted over the incision site. It was quite obvious that this bowel is nonviable. It was then divided on each end with the GINA stapler and the mesentery divided with the ligature. The area of the ileum that was left was very short, maybe about 4 cm from the ileocecal valve. Also, at this point the appendix noted to be filled with hard stool. Because of these findings, the cecum was then divided and the ascending colon subsequently dissected off the lateral ligament from the abdominal wall. This was released just below the hepatic flexure. Next, the small bowel was then anastomosed to the large intestine in a functional [id number] anastomosis using 55 cm GINA and the opening within the large intestine and the small intestine was then closed with the TA-55 stapler. The mesenteric defect was then closed with running suture using 2-0 Vicryl. Following this, the small bowel was checked towards the area of the ligament of Treitz and was noted to be unremarkable and just mildly dilated. The NG tube was then changed with a bigger tube and placed towards the mid part of the stomach by the machine assembler supervisor with my hand guiding the tip of the tube to the distal stomach. The abdominal cavity was then irrigated with about 3 L of saline. The bowel was put in place in the abdominal cavity and omentum pulled over the anastomotic site. A suture using 2-0 silk was placed at the distal end of the anastomosis to prevent the staple line. No other abnormality was noted. Following this, the fascia was then reapproximated with running suture using single-arm 0 PDS starting at both ends and tying them just below the umbilicus. The skin was then closed with rafael. A sterile dressing was placed over the operative site. Needle, instrument, and sponge count were all correct. Estimated blood loss about 100 mL. The patient then brought to intensive care unit still intubated. Blood pressure the patient had was about 80/42 and she was then started on pressors after placement of a central line. DICTATING PHYSICIAN: CHIKIS PRITCHETT M.D. [id number] PHY#: [id number] ID: [id number] JOB#: [id number] ACCT: [id number] cc:CHIKIS PRITCHETT M.D. > MTDD
[2018-01-21 06:06] LABS: ARTERIAL BLOOD BASE EXCESS -4.5 mmol/L; ARTERIAL BLOOD FIO2 30%; ARTERIAL BLOOD H2CO3 1.36 mmol/L (1.05-1.35); ARTERIAL BLOOD HCO3 21.8 mmol/L (20-24); ARTERIAL BLOOD O2 SATURATION 97.1 % (94-98); ARTERIAL BLOOD PCO2 45.1 mmHg (35-45); ARTERIAL BLOOD PO2 101.4 mmHg (80-100); ARTERIAL BLOOD TOTAL CO2 23.2 mmol/L (21-25)
[2018-01-21 06:07] LABS: ABSOLUTE LYMPHOCYTES (AUTO) 0.4 10^3/uL (0.5-4.7); ABSOLUTE MONOCYTES (AUTO) 0.1 10^3/uL (0.1-1.4); ABSOLUTE NEUT (AUTO) 3.9 10^3/uL (1.7-8.2); BASOPHILS % (AUTO) 0.2 % (0-2); EOSINOPHILS % (AUTO) 0.1 % (0-6); HEMATOCRIT 34.8 % (36.0-47.0); HEMOGLOBIN 11.8 g/dL (12.0-15.5); LYMPHOCYTES % (AUTO) 9.3 % (13-45); MEAN CORPUSCULAR HEMOGLOBIN 32.1 pg (27.0-33.4); MEAN CORPUSCULAR HGB CONC 33.9 g/dL (32.0-36.0); MEAN CORPUSCULAR VOLUME 95 fl (80-97); MONOCYTES % (AUTO) 1.3 % (3-13); RED BLOOD COUNT 3.69 10^6/uL (3.72-5.28); RED CELL DISTRIBUTION WIDTH 12.7 % (11.5-14.0); SEGMENTED NEUTROPHILS % (AUTO) 89.1 % (42-78); TOTAL CELLS COUNTED % (AUTO) 100 %; WHITE BLOOD COUNT 4.4 10^3/uL (4.0-10.5)
[2018-01-21 06:14] LABS: ALANINE AMINOTRANSFERASE 26 U/L (9-52); ALBUMIN 2.1 g/dL (3.5-5.0); ALKALINE PHOSPHATASE 30 U/L (38-126); ANION GAP 9 (5-19); ASPARTATE AMINO TRANSFERASE 27 U/L (14-36); BILIRUBIN,DIRECT 0.2 mg/dL (0.0-0.4); BILIRUBIN,TOTAL 0.7 mg/dL (0.2-1.3); BLOOD UREA NITROGEN 21 mg/dL (7-20); CARBON DIOXIDE 24 mmol/L (22-30); CHLORIDE 96 mmol/L (98-107); GLUCOSE 126 mg/dL (75-110); TOTAL PROTEIN 4.1 g/dL (6.3-8.2)
[2018-01-21 06:24] LABS: CALCIUM 6.8 mg/dL (8.4-10.2)
[2018-01-21 06:25] LABS: POTASSIUM 2.7 mmol/L (3.6-5.0)
[2018-01-21 06:29] LABS: PLATELET COUNT 91 10^3/uL (150-450)
[2018-01-21] MEDS ORDERED: NORMAL SALINE 500 ML IV ONE (07:30)
[2018-01-21] MEDS: POTASSIUM CHLORIDE 20 MEQ/50 ML RTU IV SCH ×2 (08:06→10:32)
[2018-01-21] MEDS: FENTANYL CITRATE INJ/PF 100 MCG/2 ML AMPUL IV PRN ×4 (10:24→23:18)
[2018-01-21] MEDS: FAMOTIDINE INJ/PF 20 MG/2 ML SDV IV SCH ×2 (10:24→23:06)
[2018-01-21 11:15] LABS: PHOSPHORUS 2.3 mg/dL (2.5-4.5)
[2018-01-21] MEDS ORDERED: MAGNESIUM SULFATE/D5W 1 GM/100 ML RTUPB IV ONE (11:42)
[2018-01-21] MEDS: MAGNESIUM SULFATE/D5W 1 GM/100 ML RTUPB IV SCH ×3 (11:45→13:45)
[2018-01-21 16:07] LABS: ANION GAP 5 (5-19); BLOOD UREA NITROGEN 19 mg/dL (7-20); CARBON DIOXIDE 23 mmol/L (22-30); CHLORIDE 99 mmol/L (98-107); GLUCOSE 123 mg/dL (75-110); POTASSIUM 3.6 mmol/L (3.6-5.0)
[2018-01-21 16:08] LABS: HEMATOCRIT 32.7 % (36.0-47.0); HEMOGLOBIN 11.2 g/dL (12.0-15.5); MEAN CORPUSCULAR HEMOGLOBIN 32.4 pg (27.0-33.4); MEAN CORPUSCULAR HGB CONC 34.3 g/dL (32.0-36.0); MEAN CORPUSCULAR VOLUME 94 fl (80-97); RED BLOOD COUNT 3.47 10^6/uL (3.72-5.28); RED CELL DISTRIBUTION WIDTH 12.6 % (11.5-14.0)
[2018-01-21 16:19] LABS: CALCIUM 6.8 mg/dL (8.4-10.2)
[2018-01-21 16:34] LABS: WHITE BLOOD COUNT 11.1 10^3/uL (4.0-10.5)
[2018-01-21 16:37] LABS: PLATELET COUNT 81 10^3/uL (150-450)
--- NOTE | 2018-01-21 16:50 | PDOC PROGRESS REPORT ---
Subjective Progress Note for:: 01/21/18 Reason For Visit: PARTIAL SMALL BOWEL OBSTRUCTION DUE TO ADHESIONS Physical Exam Vital Signs: Temp Pulse Resp BP Pulse Ox 98 F 89 14 97/54 L 100 01/21/18 16:00 01/21/18 16:00 01/21/18 16:00 01/21/18 16:00 01/21/18 16:07 Intake & Output 01/20/18 01/21/18 01/22/18 06:59 06:59 06:59 Intake Total 4589 8163 1835 Output Total 590 325 650 Balance 3997 7853 1185 Weight 34.6 kg 38.3 kg Results Laboratory Results: 01/21/18 15:40 01/21/18 15:40 01/21/18 01/21/18 01/21/18 05:57 05:57 06:00 WBC 4.4 RBC 3.69 L Hgb 11.8 L Hct 34.8 L MCV 95 MCH 32.1 MCHC 33.9 RDW 12.7 Plt Count 91 L Seg Neutrophils % 89.1 H Lymphocytes % 9.3 L Monocytes % 1.3 L Eosinophils % 0.1 Basophils % 0.2 Absolute Neutrophils 3.9 Absolute Lymphocytes 0.4 L Absolute Monocytes 0.1 Absolute Eosinophils 0.0 Absolute Basophils 0.0 Carbonic Acid 1.36 H HCO3/H2CO3 Ratio 16:1 ABG pH 7.30 L ABG pCO2 45.1 H ABG pO2 101.4 H ABG HCO3 21.8 ABG O2 Saturation 97.1 ABG Base Excess -4.5 FiO2 30% Sodium 129.0 L Potassium 2.7 L* Chloride 96 L Carbon Dioxide 24 Anion Gap 9 BUN 21 H Creatinine 0.85 Est GFR ( Amer) > 60 Est GFR (Non-Af Amer) > 60 Glucose 126 H Calcium 6.8 L* Phosphorus Magnesium Total Bilirubin 0.7 AST 27 ALT 26 Alkaline Phosphatase 30 L Total Protein 4.1 L Albumin 2.1 L 01/21/18 01/21/18 01/21/18 06:00 15:40 15:40 WBC RBC Hgb Hct MCV MCH MCHC RDW Plt Count Seg Neutrophils % Lymphocytes % Monocytes % Eosinophils % Basophils % Absolute Neutrophils Absolute Lymphocytes Absolute Monocytes Absolute Eosinophils Absolute Basophils Carbonic Acid HCO3/H2CO3 Ratio ABG pH ABG pCO2 ABG pO2 ABG HCO3 ABG O2 Saturation ABG Base Excess FiO2 Sodium 127.0 L Potassium 3.6 Chloride 99 Carbon Dioxide 23 Anion Gap 5 BUN 19 Creatinine 0.79 Est GFR ( Amer) > 60 Est GFR (Non-Af Amer) > 60 Glucose 123 H Calcium 6.8 L* Phosphorus 2.3 L Magnesium 0.9 L* 2.6 H D Total Bilirubin AST ALT Alkaline Phosphatase Total Protein Albumin 01/21/18 15:40 WBC 11.1 H D RBC 3.47 L Hgb 11.2 L Hct 32.7 L MCV 94 MCH 32.4 MCHC 34.3 RDW 12.6 Plt Count 81 L Seg Neutrophils % Lymphocytes % Monocytes % Eosinophils % Basophils % Absolute Neutrophils Absolute Lymphocytes Absolute Monocytes Absolute Eosinophils Absolute Basophils Carbonic Acid HCO3/H2CO3 Ratio ABG pH ABG pCO2 ABG pO2 ABG HCO3 ABG O2 Saturation ABG Base Excess FiO2 Sodium Potassium Chloride Carbon Dioxide Anion Gap BUN Creatinine Est GFR ( Amer) Est GFR (Non-Af Amer) Glucose Calcium Phosphorus Magnesium Total Bilirubin AST ALT Alkaline Phosphatase Total Protein Albumin Impressions: Abdomen/Pelvis CT 01/18/18 20:42 IMPRESSION: Findings suspicious for moderate grade mid small bowel obstruction in level of the proximal to mid ileum. This likely due to adhesions. No abscess. Small Bowel X-Ray 01/19/18 07:00 IMPRESSION: Persistent dilated distal small bowel loops. By 6 hours and 15 minutes, contrast had not yet reached the colon. Plan for KUB in the morning. Results discussed with Dr. Whitmore KUB X-Ray 01/20/18 00:00 IMPRESSION: Residual loops of contrast dilated small bowel within the central abdomen and pelvis suggestive of mid/distal small bowel obstructive process. No contrast within the colon. Chest X-Ray 01/21/18 00:00 IMPRESSION: Interval line/tube modification. Assessment & Plan - Diagnosis (1) Small bowel obstruction Is this a current diagnosis for this admission?: Yes - Plan Summary Plan Summary: This is an 82-year-old female status post exploratory laparotomy for small bowel obstruction. The patient required a small bowel resection, partial colectomy, and ileocolic anastomosis. The patient is currently on the ventilator. She is on levophed, however her pressures are good, and her urine output is adequate. Wean Levophed as pressure tolerates. Dr. Davis following for ventilatory support. DVT prophylaxis. Plan to start TPN when more stable. Replace electrolytes today. Repeat labs tomorrow. Continue to monitor urinary output closely. Continue Rodriguez catheter.
[2018-01-21] MEDS ORDERED: POTASSIUM CHLORIDE 20 MEQ/50 ML RTU IV ONE (17:00)
[2018-01-21] MEDS ORDERED: CALCIUM GLUCONATE 1000 MG/10 ML INJ IV ONE (17:00)
--- NOTE | 2018-01-21 18:06 | PDOC CONSULTATION ---
Consultation Consult Date: 01/21/18 Attending physician:: CHIKIS PRITCHETT Consult reason:: resp failure History of Present Illness Admission Date/PCP: 01/18/18 22:48 LORI WHITE PA-C History of Present Illness: BECKIE HERNANDEZ is a 82 year old female 82-year-old female presented emergency room pain nausea vomiting she had had any bowel movements she was subsequently taken to the operating room and found to have a infarcted bowel secondary to strictures and adhesions she is currently in the ICU intubated and sedated with some mild electrolyte abnormalities. Past Medical History Cardiac Medical History: Reports: Hyperlipidema Past Surgical History Past Surgical History: Reports: Cholecystectomy - laparoscopic about 20 years ago, Other - Biopsy of Cervix Social History Information Source: [facility] Records Lives with: Family Smoking Status: Current Every Day Smoker Frequency of Alcohol Use: Rare Hx Recreational Drug Use: No Drugs: None Hx Prescription Drug Abuse: No - Advance Directive Resuscitation Status: Full Code Family History Parental Family History Reviewed: No Children Family History Reviewed: No Sibling(s) Family History Reviewed.: No Medication/Allergy Home Medications: Aspirin [Lo-Dose Aspirin EC] 81 mg PO DAILY 01/19/18 Multivitamin [Daily Multiple Vitamin] 1 each PO DAILY 01/19/18 Simvastatin [Zocor 10 mg Tablet] 10 mg PO QPM 01/19/18 Zolpidem Tartrate [Ambien] 10 mg PO QHS 01/19/18 Allergies/Adverse Reactions: No Known Allergies Allergy (Verified 10/14/17 05:05) Review of Systems ROS unobtainable: Due to endotracheal tube Physical Exam Vital Signs: Temp Pulse Resp BP Pulse Ox 98.4 F 91 20 118/65 100 01/21/18 08:00 01/21/18 08:00 01/21/18 08:00 01/21/18 08:00 01/21/18 08:00 Intake & Output 01/20/18 01/21/18 01/22/18 06:59 06:59 06:59 Intake Total 4587 8178 1138 Output Total 590 325 130 Balance 3997 7879 1008 Weight 34.6 kg 38.3 kg General appearance: PRESENT: no acute distress, disheveled, thin. ABSENT: cooperative Head exam: PRESENT: atraumatic, normocephalic Eye exam: PRESENT: conjunctiva pale. ABSENT: nystagmus, scleral icterus Mouth exam: PRESENT: dry mucosa, neck supple, tongue midline, other - ET tube in place Teeth exam: PRESENT: edentulous Neck exam: ABSENT: carotid bruit, JVD, lymphadenopathy, thyromegaly, tracheal deviation, tracheostomy Respiratory exam: PRESENT: decreased breath sounds, prolonged expiratory phas, rales, rhonchi, unlabored. ABSENT: retraction, stridor Cardiovascular exam: PRESENT: irregular rhythm, +S1, +S2 Pulses: PRESENT: normal radial pulses GI/Abdominal exam: PRESENT: other - Status post surgery midline dressing dry and intact Gentrourinary exam: PRESENT: indwelling catheter Extremities exam: ABSENT: calf tenderness, clubbing, joint swelling Musculoskeletal exam: ABSENT: ambulatory, deformity, dislocation Neurological exam: ABSENT: awake Skin exam: PRESENT: dry, warm Results Laboratory Results: 01/21/18 05:57 01/21/18 05:57 01/20/18 01/20/18 01/21/18 08:28 08:28 05:57 WBC 12.6 H 4.4 RBC 4.12 3.69 L Hgb 13.3 11.8 L Hct 37.7 34.8 L MCV 92 95 MCH 32.2 32.1 MCHC 35.2 33.9 RDW 12.5 12.7 Plt Count 102 L 91 L Seg Neutrophils % 84.3 H 89.1 H Lymphocytes % 7.5 L 9.3 L Monocytes % 7.9 1.3 L Eosinophils % 0.1 0.1 Basophils % 0.2 0.2 Absolute Neutrophils 10.7 H 3.9 Absolute Lymphocytes 0.9 0.4 L Absolute Monocytes 1.0 0.1 Absolute Eosinophils 0.0 0.0 Absolute Basophils 0.0 0.0 Carbonic Acid HCO3/H2CO3 Ratio ABG pH ABG pCO2 ABG pO2 ABG HCO3 ABG O2 Saturation ABG Base Excess FiO2 Sodium 123.6 L Potassium 3.4 L Chloride 82 L Carbon Dioxide 32 H Anion Gap 10 BUN 26 H Creatinine 1.02 Est GFR ( Amer) > 60 Est GFR (Non-Af Amer) 52 L Glucose 127 H Calcium 8.8 Total Bilirubin AST ALT Alkaline Phosphatase Total Protein Albumin 01/21/18 01/21/18 05:57 06:00 WBC RBC Hgb Hct MCV MCH MCHC RDW Plt Count Seg Neutrophils % Lymphocytes % Monocytes % Eosinophils % Basophils % Absolute Neutrophils Absolute Lymphocytes Absolute Monocytes Absolute Eosinophils Absolute Basophils Carbonic Acid 1.36 H HCO3/H2CO3 Ratio 16:1 ABG pH 7.30 L ABG pCO2 45.1 H ABG pO2 101.4 H ABG HCO3 21.8 ABG O2 Saturation 97.1 ABG Base Excess -4.5 FiO2 30% Sodium 129.0 L Potassium 2.7 L* Chloride 96 L Carbon Dioxide 24 Anion Gap 9 BUN 21 H Creatinine 0.85 Est GFR ( Amer) > 60 Est GFR (Non-Af Amer) > 60 Glucose 126 H Calcium 6.8 L* Total Bilirubin 0.7 AST 27 ALT 26 Alkaline Phosphatase 30 L Total Protein 4.1 L Albumin 2.1 L Impressions: Abdomen/Pelvis CT 01/18/18 20:42 IMPRESSION: Findings suspicious for moderate grade mid small bowel obstruction in level of the proximal to mid ileum. This likely due to adhesions. No abscess. Small Bowel X-Ray 01/19/18 07:00 IMPRESSION: Persistent dilated distal small bowel loops. By 6 hours and 15 minutes, contrast had not yet reached the colon. Plan for KUB in the morning. Results discussed with Dr. Whitmore KUB X-Ray 01/20/18 00:00 IMPRESSION: Residual loops of contrast dilated small bowel within the central abdomen and pelvis suggestive of mid/distal small bowel obstructive process. No contrast within the colon. Chest X-Ray 01/21/18 00:00 IMPRESSION: Interval line/tube modification. Assessment & Plan - Diagnosis (1) Sepsis associated hypotension Is this a current diagnosis for this admission?: Yes Plan: Requiring vasopressor Levophed (2) Small bowel obstruction Is this a current diagnosis for this admission?: Yes Plan: As per surgery (3) Malnutrition Is this a current diagnosis for this admission?: Yes Plan: TPN until enteral feedings are initiated - Time Total Critical Time (Minutes): 65
[2018-01-22] MEDS: DEXTROSE 5%-LACTATED RINGERS 1,000 ML IV PRN ×5 (00:08→22:20)
[2018-01-22] MEDS: DEXTROSE 5%-WATER 250 ML with NOREPINEPHRINE BITARTRATE 4 MG IV PRN ×2 (03:05)
[2018-01-22] MEDS: PIPERACILLIN SODIUM/TAZOBACTAM 3.375 GM in NORMAL SALINE 100 ML IV SCH ×4 (04:33→21:01)
[2018-01-22 05:05] LABS: ARTERIAL BLOOD BASE EXCESS -0.7 mmol/L; ARTERIAL BLOOD H2CO3 1.16 mmol/L (1.05-1.35); ARTERIAL BLOOD HCO3 23.8 mmol/L (20-24); ARTERIAL BLOOD O2 SATURATION 97.8 % (94-98); ARTERIAL BLOOD PCO2 38.7 mmHg (35-45); ARTERIAL BLOOD PH 7.41 (7.35-7.45); ARTERIAL BLOOD PO2 104.5 mmHg (80-100)
[2018-01-22 05:06] LABS: ARTERIAL BLOOD FIO2 28%
[2018-01-22 05:09] LABS: ABSOLUTE LYMPHOCYTES (AUTO) 1.1 10^3/uL (0.5-4.7); ABSOLUTE MONOCYTES (AUTO) 0.8 10^3/uL (0.1-1.4); ABSOLUTE NEUT (AUTO) 16.8 10^3/uL (1.7-8.2); BASOPHILS % (AUTO) 0.3 % (0-2); HEMATOCRIT 31.3 % (36.0-47.0); HEMOGLOBIN 10.6 g/dL (12.0-15.5); LYMPHOCYTES % (AUTO) 5.7 % (13-45); MEAN CORPUSCULAR HEMOGLOBIN 31.7 pg (27.0-33.4); MEAN CORPUSCULAR HGB CONC 33.8 g/dL (32.0-36.0); MEAN CORPUSCULAR VOLUME 94 fl (80-97); MONOCYTES % (AUTO) 4.5 % (3-13); RED BLOOD COUNT 3.35 10^6/uL (3.72-5.28); RED CELL DISTRIBUTION WIDTH 12.7 % (11.5-14.0); SEGMENTED NEUTROPHILS % (AUTO) 89.5 % (42-78); TOTAL CELLS COUNTED % (AUTO) 100 %; WHITE BLOOD COUNT 18.8 10^3/uL (4.0-10.5)
[2018-01-22 05:29] LABS: ALANINE AMINOTRANSFERASE 29 U/L (9-52); ALBUMIN 1.8 g/dL (3.5-5.0); ALKALINE PHOSPHATASE 39 U/L (38-126); ANION GAP 5 (5-19); ASPARTATE AMINO TRANSFERASE 32 U/L (14-36); BILIRUBIN,DIRECT 0.2 mg/dL (0.0-0.4); BILIRUBIN,TOTAL 0.5 mg/dL (0.2-1.3); BLOOD UREA NITROGEN 16 mg/dL (7-20); CALCIUM 7.3 mg/dL (8.4-10.2); CARBON DIOXIDE 25 mmol/L (22-30); CHLORIDE 100 mmol/L (98-107); GLUCOSE 109 mg/dL (75-110); POTASSIUM 3.5 mmol/L (3.6-5.0); SODIUM 129.7 mmol/L (137-145); TOTAL PROTEIN 3.7 g/dL (6.3-8.2)
[2018-01-22 05:31] LABS: PLATELET COUNT 82 10^3/uL (150-450)
[2018-01-22] MEDS ORDERED: VASOPRESSIN INJ 20 UNIT/1 ML VIAL ONE (05:41)
[2018-01-22] MEDS ORDERED: DEXTROSE 5%-WATER 250 ML with VASOPRESSIN 100 UNIT IV PRN ×2 (05:43)
[2018-01-22] MEDS: FENTANYL CITRATE INJ/PF 100 MCG/2 ML AMPUL IV PRN ×4 (05:56→22:32)
--- NOTE | 2018-01-22 06:30 | RADIOLOGY REPORT (SQ) ---
EXAM DESCRIPTION: XR CHEST 1 VIEW COMPLETED DATE/TME: 01/22/2018 06:00 CLINICAL HISTORY: 82 years Female, resp fail COMPARISON: One day prior. NUMBER OF VIEWS/TECHNIQUE: 1/AP FINDINGS: Increased lung volume, prominent interstitium of bilateral upper lung canseco, normal cardiac silhouette, atherosclerosis, likely adequate enteric tube obscured distally, left subclavian central line tip at the SVC, endotracheal tube tip is 6.1 cm from the ace. No pneumothorax. Stable bony thorax. IMPRESSION: No significant change.
--- NOTE | 2018-01-22 12:02 | PDOC PROGRESS REPORT ---
Subjective Progress Note for:: 01/22/18 Subjective:: Intubated and sedated Reason For Visit: PARTIAL SMALL BOWEL OBSTRUCTION DUE TO ADHESIONS Physical Exam Vital Signs: Temp Pulse Resp BP Pulse Ox 98.2 F 62 11 L 130/57 H 100 01/22/18 11:27 01/22/18 08:00 01/22/18 11:01 01/22/18 11:00 01/22/18 11:14 Intake & Output 01/21/18 01/22/18 01/23/18 06:59 06:59 06:59 Intake Total 8178 6188 345 Output Total 325 1320 150 Balance 7853 4868 195 Weight 38.3 kg 44 kg General appearance: PRESENT: no acute distress, disheveled, thin. ABSENT: cooperative Head exam: PRESENT: atraumatic, normocephalic Eye exam: PRESENT: conjunctiva pale. ABSENT: nystagmus, scleral icterus Mouth exam: PRESENT: dry mucosa, neck supple, tongue midline, other - ET tube in place Neck exam: ABSENT: carotid bruit, JVD, lymphadenopathy, thyromegaly, tracheal deviation - [id number], tracheostomy Respiratory exam: PRESENT: decreased breath sounds, prolonged expiratory phas, rhonchi, symmetrical, unlabored. ABSENT: retraction, stridor, tachypnea Cardiovascular exam: PRESENT: RRR, +S1, +S2 Pulses: PRESENT: normal radial pulses GI/Abdominal exam: PRESENT: soft. ABSENT: tenderness Gentrourinary exam: PRESENT: indwelling catheter Extremities exam: ABSENT: calf tenderness, clubbing, joint swelling Musculoskeletal exam: ABSENT: deformity, dislocation Neurological exam: ABSENT: awake Skin exam: PRESENT: dry, warm Results Laboratory Results: 01/22/18 04:40 01/22/18 04:40 01/21/18 01/21/18 01/21/18 15:40 15:40 15:40 WBC 11.1 H D RBC 3.47 L Hgb 11.2 L Hct 32.7 L MCV 94 MCH 32.4 MCHC 34.3 RDW 12.6 Plt Count 81 L Seg Neutrophils % Lymphocytes % Monocytes % Eosinophils % Basophils % Absolute Neutrophils Absolute Lymphocytes Absolute Monocytes Absolute Eosinophils Absolute Basophils Carbonic Acid HCO3/H2CO3 Ratio ABG pH ABG pCO2 ABG pO2 ABG HCO3 ABG O2 Saturation ABG Base Excess FiO2 Sodium 127.0 L Potassium 3.6 Chloride 99 Carbon Dioxide 23 Anion Gap 5 BUN 19 Creatinine 0.79 Est GFR ( Amer) > 60 Est GFR (Non-Af Amer) > 60 Glucose 123 H Calcium 6.8 L* Phosphorus Magnesium 2.6 H D Total Bilirubin AST ALT Alkaline Phosphatase Total Protein Albumin 01/22/18 01/22/18 01/22/18 04:40 04:40 04:40 WBC 18.8 H RBC 3.35 L Hgb 10.6 L Hct 31.3 L MCV 94 MCH 31.7 MCHC 33.8 RDW 12.7 Plt Count 82 L Seg Neutrophils % 89.5 H Lymphocytes % 5.7 L Monocytes % 4.5 Eosinophils % 0.0 Basophils % 0.3 Absolute Neutrophils 16.8 H Absolute Lymphocytes 1.1 Absolute Monocytes 0.8 Absolute Eosinophils 0.0 Absolute Basophils 0.0 Carbonic Acid 1.16 HCO3/H2CO3 Ratio 20:1 ABG pH 7.41 ABG pCO2 38.7 ABG pO2 104.5 H ABG HCO3 23.8 ABG O2 Saturation 97.8 ABG Base Excess -0.7 FiO2 28% Sodium 129.7 L Potassium 3.5 L Chloride 100 Carbon Dioxide 25 Anion Gap 5 BUN 16 Creatinine 0.81 Est GFR ( Amer) > 60 Est GFR (Non-Af Amer) > 60 Glucose 109 Calcium 7.3 L Phosphorus 2.0 L Magnesium 1.9 Total Bilirubin 0.5 AST 32 ALT 29 Alkaline Phosphatase 39 Total Protein 3.7 L Albumin 1.8 L Impressions: Abdomen/Pelvis CT 01/18/18 20:42 IMPRESSION: Findings suspicious for moderate grade mid small bowel obstruction in level of the proximal to mid ileum. This likely due to adhesions. No abscess. Small Bowel X-Ray 01/19/18 07:00 IMPRESSION: Persistent dilated distal small bowel loops. By 6 hours and 15 minutes, contrast had not yet reached the colon. Plan for KUB in the morning. Results discussed with Dr. Whitmore KUB X-Ray 01/20/18 00:00 IMPRESSION: Residual loops of contrast dilated small bowel within the central abdomen and pelvis suggestive of mid/distal small bowel obstructive process. No contrast within the colon. Chest X-Ray 01/22/18 06:00 IMPRESSION: No significant change. Assessment & Plan - Diagnosis (1) Sepsis associated hypotension Is this a current diagnosis for this admission?: Yes (2) Small bowel obstruction Is this a current diagnosis for this admission?: Yes Plan: As per surgery (3) Malnutrition Is this a current diagnosis for this admission?: Yes Plan: TPN until enteral feedings are initiated (4) Respiratory failure Is this a current diagnosis for this admission?: Yes Plan: Continue mechanical ventilation patient is arousable and passes weaning trial consider extubation - Time Total Critical Time (Minutes): 45
[2018-01-22] MEDS: FAMOTIDINE INJ/PF 20 MG/2 ML SDV IV SCH ×2 (12:04→22:02)
[2018-01-22] MEDS: MIDAZOLAM HCL 50 MG/100 ML RTUINJ IV PRN (16:31)
[2018-01-22] MEDS ORDERED: NORMAL SALINE 1000 ML 500 ML IV ONE (22:15)
[2018-01-23] MEDS: FENTANYL CITRATE INJ/PF 100 MCG/2 ML AMPUL IV PRN ×5 (01:38→22:34)
[2018-01-23] MEDS: DEXTROSE 5%-LACTATED RINGERS 1,000 ML IV PRN ×2 (04:48→14:14)
[2018-01-23 05:54] LABS: ABSOLUTE BASOPHILS # (AUTO) 0.1 10^3/uL (0.0-0.2); ABSOLUTE MONOCYTES (AUTO) 0.5 10^3/uL (0.1-1.4); ABSOLUTE NEUT (AUTO) 16.4 10^3/uL (1.7-8.2); BASOPHILS % (AUTO) 0.3 % (0-2); HEMATOCRIT 28.5 % (36.0-47.0); HEMOGLOBIN 9.6 g/dL (12.0-15.5); LYMPHOCYTES % (AUTO) 5.7 % (13-45); MEAN CORPUSCULAR HEMOGLOBIN 31.8 pg (27.0-33.4); MEAN CORPUSCULAR HGB CONC 33.8 g/dL (32.0-36.0); MEAN CORPUSCULAR VOLUME 94 fl (80-97); MONOCYTES % (AUTO) 2.8 % (3-13); RED BLOOD COUNT 3.02 10^6/uL (3.72-5.28); RED CELL DISTRIBUTION WIDTH 12.7 % (11.5-14.0); SEGMENTED NEUTROPHILS % (AUTO) 91.2 % (42-78); TOTAL CELLS COUNTED % (AUTO) 100 %; WHITE BLOOD COUNT 17.9 10^3/uL (4.0-10.5)
[2018-01-23 06:01] LABS: BLOOD UREA NITROGEN 13 mg/dL (7-20); CALCIUM 7.3 mg/dL (8.4-10.2); GLUCOSE 139 mg/dL (75-110)
[2018-01-23 06:06] LABS: CARBON DIOXIDE 25 mmol/L (22-30); CHLORIDE 102 mmol/L (98-107); SODIUM 131.1 mmol/L (137-145)
[2018-01-23 06:12] LABS: ANION GAP 4 (5-19)
[2018-01-23 06:14] LABS: POTASSIUM 2.9 mmol/L (3.6-5.0)
[2018-01-23 06:17] LABS: PLATELET COUNT 66 10^3/uL (150-450)
--- NOTE | 2018-01-23 06:34 | RADIOLOGY REPORT (SQ) ---
EXAM DESCRIPTION: XR CHEST 1 VIEW COMPLETED DATE/TME: 01/23/2018 06:00 CLINICAL HISTORY: 82 years Female, resp failure COMPARISON: One day prior. NUMBER OF VIEWS/TECHNIQUE: 1/AP FINDINGS: Increased lung volume, normal cardiac silhouette, atherosclerosis, likely adequate enteric tube obscured distally, left subclavian central line tip at the SVC, and tracheal tube tip is 4.4 cm from the ace. No pneumothorax. Stable bony thorax. IMPRESSION: No significant change.
[2018-01-23 06:36] LABS: ARTERIAL BLOOD BASE EXCESS -3.9 mmol/L; ARTERIAL BLOOD HCO3 21.4 mmol/L (20-24); ARTERIAL BLOOD O2 SATURATION 94.7 % (94-98); ARTERIAL BLOOD PCO2 39.8 mmHg (35-45); ARTERIAL BLOOD PH 7.35 (7.35-7.45); ARTERIAL BLOOD PO2 76.2 mmHg (80-100); ARTERIAL BLOOD TOTAL CO2 22.6 mmol/L (21-25)
[2018-01-23 06:37] LABS: ARTERIAL BLOOD FIO2 21%
[2018-01-23] MEDS: POTASSIUM CHLORIDE 20 MEQ/50 ML RTU IV SCH ×3 (06:56→11:04)
[2018-01-23] MEDS: PIPERACILLIN SODIUM/TAZOBACTAM 3.375 GM in NORMAL SALINE 100 ML IV SCH ×4 (08:33→21:23)
[2018-01-23] MEDS ORDERED: FENTANYL CITRATE INJ/PF 100 MCG/2 ML AMPUL ONE ×2 (10:04→15:13)
[2018-01-23] MEDS: POTASSI CL 20 MEQ/50 ML RIDER 20 MEQ/50 ML RTUPB IV SCH ×2 (10:05→11:50)
[2018-01-23] MEDS: FAMOTIDINE INJ/PF 20 MG/2 ML SDV IV SCH ×2 (10:09→21:24)
[2018-01-23] MEDS ORDERED: MAGNESIUM SULFATE/D5W 1 GM/100 ML RTUPB IV ONE (12:30)
[2018-01-23] MEDS: MIDAZOLAM 2 MG/2 ML INJ IV PRN ×2 (12:58→18:05)
[2018-01-23] MEDS ORDERED: FENTANYL CITRATE INJ/PF 100 MCG/2 ML AMPUL IV ONE (15:15)
[2018-01-23] MEDS ORDERED: PROPOFOL 1,000 MG/100 ML INFUS..BTL IV ONE (16:52)
[2018-01-23] MEDS: PROPOFOL 1,000 MG/100 ML INFUS..BTL IV PRN (17:05)
--- NOTE | 2018-01-23 21:41 | OPERATIVE REPORT E ---
Operative Report NAME: BECKIE HERNANDEZ : 01/20/1936 AGE: 81Y DATE OF SURGERY: 01/23/2018 ROOM: [facility] PREOPERATIVE DIAGNOSIS: LEAKING CENTRAL LINE. POSTOPERATIVE DIAGNOSIS: LEAKING CENTRAL LINE. OPERATION: Purse string suture along the insertion site of left subclavian catheter central line. SURGEON: CHIKIS PRITCHETT M.D. ANESTHESIA: Local. INDICATIONS: This is an 81-year-old female who underwent small bowel resection and needed a central line. A central line was placed about 3 days ago, and nurses noted some leak around the entrance site. PROCEDURE: The left subclavian catheter site was prepped and draped in the usual sterile fashion. Local anesthesia infiltrated and a 3-0 N[address] was used to place a purse string suture around the catheter to prevent any leak. This appears to have stopped the leak. a new Biopatch was put back onto the insertion site and also a new transparent dressing was placed. The patient tolerated the procedure well. DICTATING PHYSICIAN: CHIKIS PRITCHETT M.D. [id number] PHY#: [id number] ID: [id number] JOB#: [id number] ACCT: [id number] cc:CHIKIS PRITCHETT M.D. > MTDD
[2018-01-24] MEDS: DEXTROSE 5%-LACTATED RINGERS 1,000 ML IV PRN ×4 (00:40→23:23)
[2018-01-24] MEDS: PIPERACILLIN SODIUM/TAZOBACTAM 3.375 GM in NORMAL SALINE 100 ML IV SCH ×4 (03:03→20:20)
[2018-01-24] MEDS: PROPOFOL 1,000 MG/100 ML INFUS..BTL IV PRN (03:03)
[2018-01-24 04:45] LABS: ARTERIAL BLOOD BASE EXCESS 1.9 mmol/L; ARTERIAL BLOOD H2CO3 1.19 mmol/L (1.05-1.35); ARTERIAL BLOOD HCO3 26.2 mmol/L (20-24); ARTERIAL BLOOD O2 SATURATION 97.7 % (94-98); ARTERIAL BLOOD PCO2 39.7 mmHg (35-45); ARTERIAL BLOOD PH 7.44 (7.35-7.45); ARTERIAL BLOOD PO2 99.2 mmHg (80-100); ARTERIAL BLOOD TOTAL CO2 27.4 mmol/L (21-25)
[2018-01-24 04:48] LABS: ARTERIAL BLOOD FIO2 30%
[2018-01-24 04:49] LABS: ABSOLUTE EOSINOPHILS # (AUTO) 0.1 10^3/uL (0.0-0.6); ABSOLUTE LYMPHOCYTES (AUTO) 1.2 10^3/uL (0.5-4.7); ABSOLUTE MONOCYTES (AUTO) 0.5 10^3/uL (0.1-1.4); ABSOLUTE NEUT (AUTO) 13.1 10^3/uL (1.7-8.2); BASOPHILS % (AUTO) 0.2 % (0-2); EOSINOPHILS % (AUTO) 0.6 % (0-6); HEMATOCRIT 28.5 % (36.0-47.0); HEMOGLOBIN 9.5 g/dL (12.0-15.5); LYMPHOCYTES % (AUTO) 8.1 % (13-45); MEAN CORPUSCULAR HEMOGLOBIN 31.5 pg (27.0-33.4); MEAN CORPUSCULAR HGB CONC 33.4 g/dL (32.0-36.0); MEAN CORPUSCULAR VOLUME 94 fl (80-97); MONOCYTES % (AUTO) 3.6 % (3-13); RED BLOOD COUNT 3.03 10^6/uL (3.72-5.28); RED CELL DISTRIBUTION WIDTH 13.1 % (11.5-14.0); SEGMENTED NEUTROPHILS % (AUTO) 87.5 % (42-78); TOTAL CELLS COUNTED % (AUTO) 100 %
[2018-01-24 05:04] LABS: PLATELET COUNT 82 10^3/uL (150-450)
[2018-01-24 05:09] LABS: ALANINE AMINOTRANSFERASE 29 U/L (9-52); ALBUMIN 1.7 g/dL (3.5-5.0); ALKALINE PHOSPHATASE 51 U/L (38-126); ASPARTATE AMINO TRANSFERASE 22 U/L (14-36); BILIRUBIN,DIRECT 0.2 mg/dL (0.0-0.4); BILIRUBIN,TOTAL 0.4 mg/dL (0.2-1.3); BLOOD UREA NITROGEN 11 mg/dL (7-20); CALCIUM 7.5 mg/dL (8.4-10.2); GLUCOSE 90 mg/dL (75-110); PHOSPHORUS 1.3 mg/dL (2.5-4.5); POTASSIUM 3.7 mmol/L (3.6-5.0); TOTAL PROTEIN 3.8 g/dL (6.3-8.2)
[2018-01-24 05:14] LABS: CARBON DIOXIDE 26 mmol/L (22-30); CHLORIDE 108 mmol/L (98-107)
[2018-01-24 05:17] LABS: ANION GAP 2 (5-19)
--- NOTE | 2018-01-24 06:58 | RADIOLOGY REPORT (SQ) ---
EXAM DESCRIPTION: XR CHEST 1 VIEW COMPLETED DATE/TME: 01/24/2018 06:00 CLINICAL HISTORY: resp failure COMPARISON: 01/23/2018 FINDINGS: Single frontal view of the chest. Endotracheal tube with tip 5 cm above the ace. Left subclavian central venous catheter with tip in the SVC. NG tube with tip below the diaphragm. Leads overlie the chest. Cardiomediastinal silhouette is stable. No consolidation, pneumothorax, or pleural effusion. Hyperinflation. Osseous structures are stable. Upper abdominal soft tissues are unremarkable. IMPRESSION: 1. Stable appearance of the chest.
[2018-01-24] MEDS ORDERED: SODIUM PHOS,M-BASIC-D-BASIC 60 MMOL in NORMAL SALINE 500 ML IV ONE (09:34)
[2018-01-24] MEDS: FAMOTIDINE INJ/PF 20 MG/2 ML SDV IV SCH ×2 (09:38→21:10)
--- NOTE | 2018-01-24 10:25 | PDOC PROGRESS REPORT ---
Subjective Progress Note for:: 01/24/18 Subjective:: Patient hemodynamically stable, on the ventilator, sedated, adequate urine output Reason For Visit: PARTIAL SMALL BOWEL OBSTRUCTION DUE TO ADHESIONS Physical Exam Vital Signs: Temp Pulse Resp BP Pulse Ox 98.9 F 96 17 112/71 100 01/24/18 10:00 01/24/18 10:00 01/24/18 10:00 01/24/18 10:00 01/24/18 10:00 Intake & Output 01/23/18 01/24/18 01/25/18 06:59 06:59 06:59 Intake Total 3540 2704 1372 Output Total 870 1510 560 Balance 2670 1194 812 Weight 47.2 kg 49.9 kg General appearance: PRESENT: no acute distress, other - Patient appears in no distress GI/Abdominal exam: PRESENT: other - Abdomen is soft, operative dressing removed ; rafael intact; no distention Results Laboratory Results: 01/24/18 04:36 01/24/18 04:36 01/24/18 01/24/18 01/24/18 04:36 04:36 04:36 WBC 15.0 H RBC 3.03 L Hgb 9.5 L Hct 28.5 L MCV 94 MCH 31.5 MCHC 33.4 RDW 13.1 Plt Count 82 L Seg Neutrophils % 87.5 H Lymphocytes % 8.1 L Monocytes % 3.6 Eosinophils % 0.6 Basophils % 0.2 Absolute Neutrophils 13.1 H Absolute Lymphocytes 1.2 Absolute Monocytes 0.5 Absolute Eosinophils 0.1 Absolute Basophils 0.0 Carbonic Acid 1.19 HCO3/H2CO3 Ratio 22:1 ABG pH 7.44 ABG pCO2 39.7 ABG pO2 99.2 ABG HCO3 26.2 H ABG O2 Saturation 97.7 ABG Base Excess 1.9 FiO2 30% Sodium 136.0 L Potassium 3.7 Chloride 108 H Carbon Dioxide 26 Anion Gap 2 L BUN 11 Creatinine 0.73 Est GFR ( Amer) > 60 Est GFR (Non-Af Amer) > 60 Glucose 90 Calcium 7.5 L Phosphorus 1.3 L Magnesium 1.6 Total Bilirubin 0.4 AST 22 ALT 29 Alkaline Phosphatase 51 Total Protein 3.8 L Albumin 1.7 L Impressions: Abdomen/Pelvis CT 01/18/18 20:42 IMPRESSION: Findings suspicious for moderate grade mid small bowel obstruction in level of the proximal to mid ileum. This likely due to adhesions. No abscess. Small Bowel X-Ray 01/19/18 07:00 IMPRESSION: Persistent dilated distal small bowel loops. By 6 hours and 15 minutes, contrast had not yet reached the colon. Plan for KUB in the morning. Results discussed with Dr. Whitmore KUB X-Ray 01/20/18 00:00 IMPRESSION: Residual loops of contrast dilated small bowel within the central abdomen and pelvis suggestive of mid/distal small bowel obstructive process. No contrast within the colon. Chest X-Ray 01/24/18 06:00 IMPRESSION: 1. Stable appearance of the chest. Assessment & Plan - Diagnosis (1) Small bowel obstruction Is this a current diagnosis for this admission?: Yes (2) Small bowel obstruction with strangulation or infarction Is this a current diagnosis for this admission?: Yes Plan: Impression: Patient is 4 days status post exploratory laparotomy, ileocecectomy for ischemic small bowel due to closed-loop obstruction, on the ventilator, hemodynamically stable, no obvious complications. Commendations: 1. Will anticipate weaning and extubation from ventilator today 2. Hold tube feeds in the interim. 3. Wean intravenous antibiotics.
[2018-01-24] MEDS: FENTANYL CITRATE INJ/PF 100 MCG/2 ML AMPUL IV PRN ×2 (16:29→21:53)
[2018-01-24] MEDS ORDERED: ACETAMINOPHEN SOLN 325 MG/10.15 ML UDCUP ONE (18:04)
[2018-01-24 19:22] LABS: ANION GAP 5 (5-19); BLOOD UREA NITROGEN 9 mg/dL (7-20); CALCIUM 7.2 mg/dL (8.4-10.2); CARBON DIOXIDE 25 mmol/L (22-30); CHLORIDE 111 mmol/L (98-107); GLUCOSE 126 mg/dL (75-110); POTASSIUM 3.2 mmol/L (3.6-5.0); SODIUM 141.3 mmol/L (137-145)
[2018-01-24] MEDS ORDERED: MAGNESIUM SULFATE/D5W 1 GM/100 ML RTUPB IV ONE (20:06)
[2018-01-24] MEDS ORDERED: POTASSI CL 20 MEQ/50 ML RIDER 20 MEQ/50 ML RTUPB IV ONE (20:07)
[2018-01-24] MEDS: MAGNESIUM SULFATE 1 GM/D5W 100 ML IV SCH ×2 (20:20→21:10)
[2018-01-24] MEDS: POTASSIUM CHLORIDE 20 MEQ/50 ML RTU IV SCH ×2 (20:21→22:19)
[2018-01-25] MEDS: POTASSIUM CHLORIDE 20 MEQ/50 ML RTU IV SCH (00:27)
[2018-01-25] MEDS: FENTANYL CITRATE INJ/PF 100 MCG/2 ML AMPUL IV PRN ×2 (01:43→06:13)
[2018-01-25] MEDS: PIPERACILLIN SODIUM/TAZOBACTAM 3.375 GM in NORMAL SALINE 100 ML IV SCH ×2 (02:08→09:02)
[2018-01-25] MEDS: ACETAMINOPHEN SOLN 325 MG/10.15 ML UDCUP NG PRN ×3 (03:48→16:30)
[2018-01-25 05:02] LABS: ARTERIAL BLOOD BASE EXCESS -1.8 mmol/L; ARTERIAL BLOOD H2CO3 1.55 mmol/L (1.05-1.35); ARTERIAL BLOOD HCO3 24.9 mmol/L (20-24); ARTERIAL BLOOD O2 SATURATION 95.1 % (94-98); ARTERIAL BLOOD PCO2 51.6 mmHg (35-45); ARTERIAL BLOOD TOTAL CO2 26.5 mmol/L (21-25)
[2018-01-25 05:03] LABS: ARTERIAL BLOOD FIO2 2L
[2018-01-25 05:07] LABS: ABSOLUTE EOSINOPHILS # (AUTO) 0.2 10^3/uL (0.0-0.6); ABSOLUTE LYMPHOCYTES (AUTO) 0.8 10^3/uL (0.5-4.7); ABSOLUTE MONOCYTES (AUTO) 0.9 10^3/uL (0.1-1.4); BASOPHILS % (AUTO) 0.2 % (0-2); EOSINOPHILS % (AUTO) 1.3 % (0-6); HEMOGLOBIN 10.1 g/dL (12.0-15.5); LYMPHOCYTES % (AUTO) 5.4 % (13-45); MEAN CORPUSCULAR HEMOGLOBIN 31.7 pg (27.0-33.4); MEAN CORPUSCULAR HGB CONC 33.6 g/dL (32.0-36.0); MEAN CORPUSCULAR VOLUME 95 fl (80-97); MONOCYTES % (AUTO) 5.7 % (3-13); PLATELET COUNT 108 10^3/uL (150-450); RED BLOOD COUNT 3.18 10^6/uL (3.72-5.28); RED CELL DISTRIBUTION WIDTH 13.4 % (11.5-14.0); SEGMENTED NEUTROPHILS % (AUTO) 87.4 % (42-78); TOTAL CELLS COUNTED % (AUTO) 100 %; WHITE BLOOD COUNT 14.9 10^3/uL (4.0-10.5)
[2018-01-25 05:17] LABS: ALANINE AMINOTRANSFERASE 25 U/L (9-52); ALKALINE PHOSPHATASE 68 U/L (38-126); ANION GAP 5 (5-19); ASPARTATE AMINO TRANSFERASE 25 U/L (14-36); BILIRUBIN,DIRECT 0.1 mg/dL (0.0-0.4); BILIRUBIN,TOTAL 0.3 mg/dL (0.2-1.3); BLOOD UREA NITROGEN 8 mg/dL (7-20); CALCIUM 7.4 mg/dL (8.4-10.2); CARBON DIOXIDE 23 mmol/L (22-30); CHLORIDE 114 mmol/L (98-107); GLUCOSE 123 mg/dL (75-110); POTASSIUM 4.1 mmol/L (3.6-5.0); SODIUM 142.3 mmol/L (137-145); TOTAL PROTEIN 4.3 g/dL (6.3-8.2)
[2018-01-25] MEDS: DEXTROSE 5%-LACTATED RINGERS 1,000 ML IV PRN (05:36)
--- NOTE | 2018-01-25 06:38 | RADIOLOGY REPORT (SQ) ---
EXAM DESCRIPTION: XR CHEST 1 VIEW COMPLETED DATE/TME: 01/25/2018 06:00 CLINICAL HISTORY: 82 years, Female, resp failure COMPARISON: 01/24/2018 NUMBER OF VIEWS: One TECHNIQUE: AP view of the chest LIMITATIONS: None. FINDINGS: The lungs are emphysematous. Bibasilar airspace opacities have developed with normal bilateral pleural effusions. The heart size is stable. There is no pneumothorax. The endotracheal tube has been removed. The left subclavian line and nasogastric tube remain in satisfactory position. The bones are demineralized. IMPRESSION: Development of bibasilar airspace opacities with small bilateral pleural effusions 2010 [employer]- All Rights Reserved
[2018-01-25] MEDS: FAMOTIDINE INJ/PF 20 MG/2 ML SDV IV SCH ×2 (09:02→21:31)
[2018-01-25] MEDS ORDERED: FUROSEMIDE INJ/PF 20 MG/2 ML SDV ONE (14:11)
[2018-01-25] MEDS: KETOROLAC TROMETHAMINE INJ/PF 30 MG/1 ML SDV IV PRN ×2 (14:16→21:31)
--- NOTE | 2018-01-25 14:27 | PDOC PROGRESS REPORT ---
Subjective Progress Note for:: 01/25/18 Subjective:: Patient is extubated, tolerating tube feeds via nasogastric tube; disoriented, weaning despite pain medication. Reason For Visit: PARTIAL SMALL BOWEL OBSTRUCTION DUE TO ADHESIONS Physical Exam Vital Signs: Temp Pulse Resp BP Pulse Ox 96.6 F L 99 20 125/62 100 01/25/18 12:00 01/25/18 12:00 01/25/18 12:31 01/25/18 12:31 01/25/18 12:31 Intake & Output 01/24/18 01/25/18 01/26/18 06:59 06:59 06:59 Intake Total 2704 5726 934 Output Total 1510 2065 315 Balance 1194 3661 619 Weight 49.9 kg 52.4 kg General appearance: PRESENT: no acute distress - Mild tachypnea otherwise vital signs stable. Remains in ICU; head of bed elevated GI/Abdominal exam: PRESENT: other - Midline dressing removed, rafael intact minimal serous discharge no active infection. Results Laboratory Results: 01/25/18 04:50 01/25/18 04:50 01/24/18 01/25/18 01/25/18 18:40 04:50 04:50 WBC 14.9 H RBC 3.18 L Hgb 10.1 L Hct 30.0 L MCV 95 MCH 31.7 MCHC 33.6 RDW 13.4 Plt Count 108 L Seg Neutrophils % 87.4 H Lymphocytes % 5.4 L Monocytes % 5.7 Eosinophils % 1.3 Basophils % 0.2 Absolute Neutrophils 13.0 H Absolute Lymphocytes 0.8 Absolute Monocytes 0.9 Absolute Eosinophils 0.2 Absolute Basophils 0.0 Carbonic Acid 1.55 H HCO3/H2CO3 Ratio 16:1 ABG pH 7.30 L ABG pCO2 51.6 H ABG pO2 83.0 ABG HCO3 24.9 H ABG O2 Saturation 95.1 ABG Base Excess -1.8 FiO2 2L Sodium 141.3 Potassium 3.2 L Chloride 111 H Carbon Dioxide 25 Anion Gap 5 BUN 9 Creatinine 0.67 Est GFR ( Amer) > 60 Est GFR (Non-Af Amer) > 60 Glucose 126 H Calcium 7.2 L Phosphorus Magnesium 1.3 L Total Bilirubin AST ALT Alkaline Phosphatase Total Protein Albumin 01/25/18 04:50 WBC RBC Hgb Hct MCV MCH MCHC RDW Plt Count Seg Neutrophils % Lymphocytes % Monocytes % Eosinophils % Basophils % Absolute Neutrophils Absolute Lymphocytes Absolute Monocytes Absolute Eosinophils Absolute Basophils Carbonic Acid HCO3/H2CO3 Ratio ABG pH ABG pCO2 ABG pO2 ABG HCO3 ABG O2 Saturation ABG Base Excess FiO2 Sodium 142.3 Potassium 4.1 Chloride 114 H Carbon Dioxide 23 Anion Gap 5 BUN 8 Creatinine 0.72 Est GFR ( Amer) > 60 Est GFR (Non-Af Amer) > 60 Glucose 123 H Calcium 7.4 L Phosphorus 5.0 H Magnesium 1.8 Total Bilirubin 0.3 AST 25 ALT 25 Alkaline Phosphatase 68 Total Protein 4.3 L Albumin 2.0 L 01/22/18 06:00 Tracheal Aspirate Gram Stain - Final 01/22/18 06:00 Tracheal Aspirate Sputum Culture - Final NO GROWTH 3 DAYS 01/22/18 06:00 Catheterized Urine Urine Culture - Final NO GROWTH 2 DAYS Impressions: Abdomen/Pelvis CT 01/18/18 20:42 IMPRESSION: Findings suspicious for moderate grade mid small bowel obstruction in level of the proximal to mid ileum. This likely due to adhesions. No abscess. Small Bowel X-Ray 01/19/18 07:00 IMPRESSION: Persistent dilated distal small bowel loops. By 6 hours and 15 minutes, contrast had not yet reached the colon. Plan for KUB in the morning. Results discussed with Dr. Whitmore KUB X-Ray 01/20/18 00:00 IMPRESSION: Residual loops of contrast dilated small bowel within the central abdomen and pelvis suggestive of mid/distal small bowel obstructive process. No contrast within the colon. Chest X-Ray 01/25/18 06:00 IMPRESSION: Development of bibasilar airspace opacities with small bilateral pleural effusions 2010 [employer]- All Rights Reserved Assessment & Plan - Diagnosis (1) Small bowel obstruction Is this a current diagnosis for this admission?: Yes Plan: Patient is postoperative day 5, status post exploratory laparotomy, ileocecectomy for closed loop bowel obstruction, tolerated extubation, tolerating tube feeds. Indications: 1. Patient not reliable or alert enough to start p.o. intake I: Continue tube feeds 2. Discontinue IV antibiotics. 3. Will need reconditioning; consulting PT for evaluation; patient likely needs rehab stay. 4. Keep in ICU today. Attempt to get patient upright in bed, dangling (2) Small bowel obstruction with strangulation or infarction Is this a current diagnosis for this admission?: Yes
[2018-01-25] MEDS: FUROSEMIDE INJ/PF 20 MG/2 ML SDV IV SCH (21:31)
[2018-01-26 05:28] LABS: ABSOLUTE BASOPHILS # (AUTO) 0.1 10^3/uL (0.0-0.2); ABSOLUTE EOSINOPHILS # (AUTO) 0.5 10^3/uL (0.0-0.6); ABSOLUTE LYMPHOCYTES (AUTO) 0.9 10^3/uL (0.5-4.7); ABSOLUTE MONOCYTES (AUTO) 0.7 10^3/uL (0.1-1.4); ABSOLUTE NEUT (AUTO) 11.2 10^3/uL (1.7-8.2); BASOPHILS % (AUTO) 0.6 % (0-2); EOSINOPHILS % (AUTO) 3.9 % (0-6); HEMATOCRIT 28.9 % (36.0-47.0); LYMPHOCYTES % (AUTO) 6.7 % (13-45); MEAN CORPUSCULAR HEMOGLOBIN 32.2 pg (27.0-33.4); MEAN CORPUSCULAR HGB CONC 34.5 g/dL (32.0-36.0); MEAN CORPUSCULAR VOLUME 93 fl (80-97); MONOCYTES % (AUTO) 5.4 % (3-13); PLATELET COUNT 128 10^3/uL (150-450); SEGMENTED NEUTROPHILS % (AUTO) 83.4 % (42-78); TOTAL CELLS COUNTED % (AUTO) 100 %; WHITE BLOOD COUNT 13.4 10^3/uL (4.0-10.5)
[2018-01-26 05:35] LABS: ARTERIAL BLOOD BASE EXCESS 0.8 mmol/L; ARTERIAL BLOOD H2CO3 1.21 mmol/L (1.05-1.35); ARTERIAL BLOOD HCO3 25.3 mmol/L (20-24); ARTERIAL BLOOD O2 SATURATION 89.5 % (94-98); ARTERIAL BLOOD PCO2 40.2 mmHg (35-45); ARTERIAL BLOOD PH 7.42 (7.35-7.45); ARTERIAL BLOOD PO2 55.7 mmHg (80-100); ARTERIAL BLOOD TOTAL CO2 26.5 mmol/L (21-25)
[2018-01-26 05:43] LABS: ARTERIAL BLOOD FIO2 RA
[2018-01-26 05:49] LABS: ANION GAP 6 (5-19); BLOOD UREA NITROGEN 14 mg/dL (7-20); CALCIUM 7.8 mg/dL (8.4-10.2); CARBON DIOXIDE 27 mmol/L (22-30); CHLORIDE 109 mmol/L (98-107); GLUCOSE 83 mg/dL (75-110); POTASSIUM 3.9 mmol/L (3.6-5.0)
--- NOTE | 2018-01-26 07:27 | RADIOLOGY REPORT (SQ) ---
EXAM DESCRIPTION: XR CHEST 1 VIEW COMPLETED DATE/TME: 01/26/2018 06:00 CLINICAL HISTORY: 82 years Female, pna COMPARISON: One day prior. NUMBER OF VIEWS/TECHNIQUE: 1/AP FINDINGS: Moderate bibasilar opacity-effusion, increased lung volume, prominent interstitium, normal cardiac silhouette size, atherosclerosis, left subclavian central line tip at the SVC, likely adequate enteric tube obscured distally. No pneumothorax. Stable bony thorax. IMPRESSION: No significant change.
[2018-01-26] MEDS: FAMOTIDINE INJ/PF 20 MG/2 ML SDV IV SCH ×2 (09:06→23:16)
[2018-01-26] MEDS: KETOROLAC TROMETHAMINE INJ/PF 30 MG/1 ML SDV IV PRN ×3 (09:06→23:18)
[2018-01-26] MEDS: FUROSEMIDE INJ/PF 20 MG/2 ML SDV IV SCH ×2 (09:07→23:12)
[2018-01-26] MEDS: MAGNESIUM SULFATE/D5W 1 GM/100 ML RTUPB IV SCH ×3 (09:39→12:01)
--- NOTE | 2018-01-26 12:20 | PDOC PROGRESS REPORT ---
Subjective Progress Note for:: 01/23/18 Subjective:: Intubated and sedated Reason For Visit: PARTIAL SMALL BOWEL OBSTRUCTION DUE TO ADHESIONS Physical Exam Vital Signs: Temp Pulse Resp BP Pulse Ox 97.4 F 62 11 L 115/56 L 100 01/23/18 08:00 01/23/18 08:00 01/23/18 08:00 01/23/18 08:00 01/23/18 08:00 Intake & Output 01/22/18 01/23/18 01/24/18 06:59 06:59 06:59 Intake Total 6188 3440 Output Total 1320 870 150 Balance 4868 2570 -150 Weight 44 kg 47.2 kg General appearance: PRESENT: no acute distress, disheveled, thin, well-developed , well-nourished. ABSENT: cooperative Head exam: PRESENT: atraumatic, normocephalic Eye exam: PRESENT: conjunctiva pale. ABSENT: EOMI, nystagmus, periorbital swelling, scleral icterus Mouth exam: PRESENT: dry mucosa, neck supple, tongue midline, other - ET tube in place Neck exam: ABSENT: carotid bruit, JVD, lymphadenopathy, thyromegaly, tracheal deviation, tracheostomy Respiratory exam: PRESENT: decreased breath sounds, prolonged expiratory phas, rales, rhonchi, unlabored. ABSENT: retraction, stridor Cardiovascular exam: PRESENT: irregular rhythm, +S2, tachycardia Pulses: PRESENT: normal radial pulses GI/Abdominal exam: PRESENT: other - Status post surgery Gentrourinary exam: PRESENT: indwelling catheter Extremities exam: ABSENT: calf tenderness, clubbing, joint swelling Musculoskeletal exam: ABSENT: deformity, dislocation Neurological exam: ABSENT: awake Skin exam: PRESENT: dry, warm Results Laboratory Results: 01/23/18 05:40 01/23/18 05:40 01/23/18 01/23/18 01/23/18 05:40 05:40 06:28 WBC 17.9 H RBC 3.02 L Hgb 9.6 L Hct 28.5 L MCV 94 MCH 31.8 MCHC 33.8 RDW 12.7 Plt Count 66 L Seg Neutrophils % 91.2 H Lymphocytes % 5.7 L Monocytes % 2.8 L Eosinophils % 0.0 Basophils % 0.3 Absolute Neutrophils 16.4 H Absolute Lymphocytes 1.0 Absolute Monocytes 0.5 Absolute Eosinophils 0.0 Absolute Basophils 0.1 Carbonic Acid 1.20 HCO3/H2CO3 Ratio 17:1 ABG pH 7.35 ABG pCO2 39.8 ABG pO2 76.2 L ABG HCO3 21.4 ABG O2 Saturation 94.7 ABG Base Excess -3.9 FiO2 21% Sodium 131.1 L Potassium 2.9 L* Chloride 102 Carbon Dioxide 25 Anion Gap 4 L BUN 13 Creatinine 0.67 Est GFR ( Amer) > 60 Est GFR (Non-Af Amer) > 60 Glucose 139 H Calcium 7.3 L Phosphorus 2.0 L Magnesium 1.6 Impressions: Abdomen/Pelvis CT 01/18/18 20:42 IMPRESSION: Findings suspicious for moderate grade mid small bowel obstruction in level of the proximal to mid ileum. This likely due to adhesions. No abscess. Small Bowel X-Ray 01/19/18 07:00 IMPRESSION: Persistent dilated distal small bowel loops. By 6 hours and 15 minutes, contrast had not yet reached the colon. Plan for KUB in the morning. Results discussed with Dr. Whitmore KUB X-Ray 01/20/18 00:00 IMPRESSION: Residual loops of contrast dilated small bowel within the central abdomen and pelvis suggestive of mid/distal small bowel obstructive process. No contrast within the colon. Chest X-Ray 01/23/18 06:00 IMPRESSION: No significant change. Assessment & Plan - Diagnosis (1) Sepsis associated hypotension Is this a current diagnosis for this admission?: Yes Plan: Stable at this time (2) Small bowel obstruction Is this a current diagnosis for this admission?: Yes Plan: As per surgery (3) Malnutrition Is this a current diagnosis for this admission?: Yes Plan: TPN until enteral feedings are initiated (4) Respiratory failure Qualifiers: Chronicity: acute Is this a current diagnosis for this admission?: Yes Plan: Continue mechanical ventilation when patient is arousable and passes weaning trial consider extubation - Time Total Critical Time (Minutes): 45
--- NOTE | 2018-01-26 12:23 | PDOC PROGRESS REPORT ---
Subjective Progress Note for:: 01/24/18 Subjective:: extubate Reason For Visit: PARTIAL SMALL BOWEL OBSTRUCTION DUE TO ADHESIONS Physical Exam Vital Signs: Temp Pulse Resp BP Pulse Ox 99.6 F 109 H 22 H 135/63 H 100 01/24/18 08:00 01/24/18 08:00 01/24/18 08:00 01/24/18 08:00 01/24/18 08:00 Intake & Output 01/23/18 01/24/18 01/25/18 06:59 06:59 06:59 Intake Total 3540 2704 1372 Output Total 870 1510 325 Balance 2670 1194 1047 Weight 47.2 kg 49.9 kg General appearance: PRESENT: no acute distress, cooperative, disheveled, thin, well-developed, well-nourished Head exam: PRESENT: atraumatic, normocephalic Eye exam: PRESENT: conjunctiva pale, EOMI. ABSENT: nystagmus, periorbital swelling, scleral icterus Mouth exam: PRESENT: dry mucosa, neck supple, tongue midline, other - ET tube in place Neck exam: ABSENT: carotid bruit, JVD, lymphadenopathy, thyromegaly, tracheal deviation, tracheostomy Respiratory exam: PRESENT: decreased breath sounds, prolonged expiratory phas, rhonchi, unlabored. ABSENT: rales, retraction, stridor Cardiovascular exam: PRESENT: irregular rhythm, +S2 Pulses: PRESENT: normal radial pulses GI/Abdominal exam: PRESENT: other - Status post surgery Gentrourinary exam: PRESENT: indwelling catheter Extremities exam: ABSENT: calf tenderness, clubbing, joint swelling Musculoskeletal exam: ABSENT: deformity, dislocation Neurological exam: PRESENT: awake, oriented to person Skin exam: PRESENT: dry, warm Results Laboratory Results: 01/24/18 04:36 01/24/18 04:36 01/24/18 01/24/18 01/24/18 04:36 04:36 04:36 WBC 15.0 H RBC 3.03 L Hgb 9.5 L Hct 28.5 L MCV 94 MCH 31.5 MCHC 33.4 RDW 13.1 Plt Count 82 L Seg Neutrophils % 87.5 H Lymphocytes % 8.1 L Monocytes % 3.6 Eosinophils % 0.6 Basophils % 0.2 Absolute Neutrophils 13.1 H Absolute Lymphocytes 1.2 Absolute Monocytes 0.5 Absolute Eosinophils 0.1 Absolute Basophils 0.0 Carbonic Acid 1.19 HCO3/H2CO3 Ratio 22:1 ABG pH 7.44 ABG pCO2 39.7 ABG pO2 99.2 ABG HCO3 26.2 H ABG O2 Saturation 97.7 ABG Base Excess 1.9 FiO2 30% Sodium 136.0 L Potassium 3.7 Chloride 108 H Carbon Dioxide 26 Anion Gap 2 L BUN 11 Creatinine 0.73 Est GFR ( Amer) > 60 Est GFR (Non-Af Amer) > 60 Glucose 90 Calcium 7.5 L Phosphorus 1.3 L Magnesium 1.6 Total Bilirubin 0.4 AST 22 ALT 29 Alkaline Phosphatase 51 Total Protein 3.8 L Albumin 1.7 L Impressions: Abdomen/Pelvis CT 01/18/18 20:42 IMPRESSION: Findings suspicious for moderate grade mid small bowel obstruction in level of the proximal to mid ileum. This likely due to adhesions. No abscess. Small Bowel X-Ray 01/19/18 07:00 IMPRESSION: Persistent dilated distal small bowel loops. By 6 hours and 15 minutes, contrast had not yet reached the colon. Plan for KUB in the morning. Results discussed with Dr. Whitmore KUB X-Ray 01/20/18 00:00 IMPRESSION: Residual loops of contrast dilated small bowel within the central abdomen and pelvis suggestive of mid/distal small bowel obstructive process. No contrast within the colon. Chest X-Ray 01/24/18 06:00 IMPRESSION: 1. Stable appearance of the chest. Assessment & Plan - Diagnosis (1) Sepsis associated hypotension Is this a current diagnosis for this admission?: No (2) Small bowel obstruction Is this a current diagnosis for this admission?: Yes Plan: As per surgery (3) Malnutrition Is this a current diagnosis for this admission?: Yes Plan: enteral feedings are initiated (4) Respiratory failure Qualifiers: Chronicity: acute Is this a current diagnosis for this admission?: Yes Plan: extubation - Time Total Critical Time (Minutes): 55
--- NOTE | 2018-01-26 12:26 | PDOC PROGRESS REPORT ---
Subjective Progress Note for:: 01/25/18 Subjective:: on bipap s/p extubation Reason For Visit: PARTIAL SMALL BOWEL OBSTRUCTION DUE TO ADHESIONS Physical Exam Vital Signs: Temp Pulse Resp BP Pulse Ox 97.2 F 100 20 135/58 H 99 01/25/18 10:00 01/25/18 10:00 01/25/18 10:00 01/25/18 10:00 01/25/18 10:00 Intake & Output 01/24/18 01/25/18 01/26/18 06:59 06:59 06:59 Intake Total 2704 5726 800 Output Total 1510 2065 275 Balance 1194 3661 525 Weight 49.9 kg 52.4 kg General appearance: PRESENT: no acute distress, disheveled, thin, well-developed , well-nourished Head exam: PRESENT: atraumatic, normocephalic Eye exam: PRESENT: conjunctiva pale, EOMI. ABSENT: nystagmus, periorbital swelling, scleral icterus Mouth exam: PRESENT: dry mucosa, neck supple, tongue midline Neck exam: ABSENT: carotid bruit, JVD, lymphadenopathy, thyromegaly, tracheal deviation, tracheostomy Respiratory exam: PRESENT: decreased breath sounds, prolonged expiratory phas, rhonchi, unlabored. ABSENT: retraction, stridor Cardiovascular exam: PRESENT: irregular rhythm Pulses: PRESENT: normal radial pulses GI/Abdominal exam: PRESENT: other - S/p surgery Gentrourinary exam: PRESENT: indwelling catheter Extremities exam: ABSENT: calf tenderness, clubbing, joint swelling Musculoskeletal exam: ABSENT: deformity, dislocation Neurological exam: PRESENT: awake Psychiatric exam: PRESENT: flat affect Skin exam: PRESENT: dry, warm Results Laboratory Results: 01/25/18 04:50 01/25/18 04:50 01/24/18 01/25/18 01/25/18 18:40 04:50 04:50 WBC 14.9 H RBC 3.18 L Hgb 10.1 L Hct 30.0 L MCV 95 MCH 31.7 MCHC 33.6 RDW 13.4 Plt Count 108 L Seg Neutrophils % 87.4 H Lymphocytes % 5.4 L Monocytes % 5.7 Eosinophils % 1.3 Basophils % 0.2 Absolute Neutrophils 13.0 H Absolute Lymphocytes 0.8 Absolute Monocytes 0.9 Absolute Eosinophils 0.2 Absolute Basophils 0.0 Carbonic Acid 1.55 H HCO3/H2CO3 Ratio 16:1 ABG pH 7.30 L ABG pCO2 51.6 H ABG pO2 83.0 ABG HCO3 24.9 H ABG O2 Saturation 95.1 ABG Base Excess -1.8 FiO2 2L Sodium 141.3 Potassium 3.2 L Chloride 111 H Carbon Dioxide 25 Anion Gap 5 BUN 9 Creatinine 0.67 Est GFR ( Amer) > 60 Est GFR (Non-Af Amer) > 60 Glucose 126 H Calcium 7.2 L Phosphorus Magnesium 1.3 L Total Bilirubin AST ALT Alkaline Phosphatase Total Protein Albumin 01/25/18 04:50 WBC RBC Hgb Hct MCV MCH MCHC RDW Plt Count Seg Neutrophils % Lymphocytes % Monocytes % Eosinophils % Basophils % Absolute Neutrophils Absolute Lymphocytes Absolute Monocytes Absolute Eosinophils Absolute Basophils Carbonic Acid HCO3/H2CO3 Ratio ABG pH ABG pCO2 ABG pO2 ABG HCO3 ABG O2 Saturation ABG Base Excess FiO2 Sodium 142.3 Potassium 4.1 Chloride 114 H Carbon Dioxide 23 Anion Gap 5 BUN 8 Creatinine 0.72 Est GFR ( Amer) > 60 Est GFR (Non-Af Amer) > 60 Glucose 123 H Calcium 7.4 L Phosphorus 5.0 H Magnesium 1.8 Total Bilirubin 0.3 AST 25 ALT 25 Alkaline Phosphatase 68 Total Protein 4.3 L Albumin 2.0 L 01/22/18 06:00 Tracheal Aspirate Gram Stain - Final 01/22/18 06:00 Tracheal Aspirate Sputum Culture - Final NO GROWTH 3 DAYS 01/22/18 06:00 Catheterized Urine Urine Culture - Final NO GROWTH 2 DAYS Impressions: Abdomen/Pelvis CT 01/18/18 20:42 IMPRESSION: Findings suspicious for moderate grade mid small bowel obstruction in level of the proximal to mid ileum. This likely due to adhesions. No abscess. Small Bowel X-Ray 01/19/18 07:00 IMPRESSION: Persistent dilated distal small bowel loops. By 6 hours and 15 minutes, contrast had not yet reached the colon. Plan for KUB in the morning. Results discussed with Dr. Whitmore KUB X-Ray 01/20/18 00:00 IMPRESSION: Residual loops of contrast dilated small bowel within the central abdomen and pelvis suggestive of mid/distal small bowel obstructive process. No contrast within the colon. Chest X-Ray 01/25/18 06:00 IMPRESSION: Development of bibasilar airspace opacities with small bilateral pleural effusions 2010 [employer]- All Rights Reserved Assessment & Plan - Diagnosis (1) Sepsis associated hypotension Is this a current diagnosis for this admission?: No (2) Small bowel obstruction Is this a current diagnosis for this admission?: Yes Plan: As per surgery (3) Malnutrition Is this a current diagnosis for this admission?: Yes Plan: enteral feedings are initiated (4) Respiratory failure Qualifiers: Chronicity: acute Is this a current diagnosis for this admission?: Yes Plan: on bipap stable - Time Total Critical Time (Minutes): 45
--- NOTE | 2018-01-26 12:28 | PDOC PROGRESS REPORT ---
Subjective Progress Note for:: 01/26/18 Subjective:: Continues to improve Reason For Visit: PARTIAL SMALL BOWEL OBSTRUCTION DUE TO ADHESIONS Physical Exam Vital Signs: Temp Pulse Resp BP Pulse Ox 98.2 F 111 H 24 H 142/71 H 96 01/26/18 05:41 01/26/18 08:00 01/26/18 06:00 01/26/18 05:32 01/26/18 06:00 Intake & Output 01/25/18 01/26/18 01/27/18 06:59 06:59 06:59 Intake Total 5769 1741 Output Total 9012 1070 Balance 3661 -989 Weight 52.4 kg 50.3 kg General appearance: PRESENT: no acute distress, cooperative, disheveled, hard of hearing, thin, well-developed, well-nourished Head exam: PRESENT: atraumatic, normocephalic Eye exam: PRESENT: conjunctiva pale, EOMI. ABSENT: nystagmus, periorbital swelling, scleral icterus Mouth exam: PRESENT: dry mucosa, neck supple, tongue midline Neck exam: ABSENT: carotid bruit, JVD, lymphadenopathy, thyromegaly, tracheal deviation, tracheostomy Respiratory exam: PRESENT: decreased breath sounds, prolonged expiratory phas, rhonchi, unlabored. ABSENT: retraction, stridor Cardiovascular exam: PRESENT: irregular rhythm, tachycardia Pulses: PRESENT: normal radial pulses GI/Abdominal exam: PRESENT: other - Tolerating enteral feeds status post surgery Gentrourinary exam: PRESENT: indwelling catheter Extremities exam: ABSENT: calf tenderness, clubbing, joint swelling Musculoskeletal exam: ABSENT: deformity, dislocation Neurological exam: PRESENT: alert, awake Psychiatric exam: PRESENT: flat affect Skin exam: PRESENT: dry, warm Results Laboratory Results: 01/26/18 05:06 01/26/18 05:06 01/26/18 01/26/18 01/26/18 05:06 05:06 05:06 WBC 13.4 H RBC 3.10 L Hgb 10.0 L Hct 28.9 L MCV 93 MCH 32.2 MCHC 34.5 RDW 13.0 Plt Count 128 L Seg Neutrophils % 83.4 H Lymphocytes % 6.7 L Monocytes % 5.4 Eosinophils % 3.9 Basophils % 0.6 Absolute Neutrophils 11.2 H Absolute Lymphocytes 0.9 Absolute Monocytes 0.7 Absolute Eosinophils 0.5 Absolute Basophils 0.1 Carbonic Acid 1.21 HCO3/H2CO3 Ratio 20:1 ABG pH 7.42 ABG pCO2 40.2 ABG pO2 55.7 L ABG HCO3 25.3 H ABG O2 Saturation 89.5 L ABG Base Excess 0.8 FiO2 RA Sodium 142.0 Potassium 3.9 Chloride 109 H Carbon Dioxide 27 Anion Gap 6 BUN 14 Creatinine 0.80 Est GFR ( Amer) > 60 Est GFR (Non-Af Amer) > 60 Glucose 83 Calcium 7.8 L Magnesium 1.4 L 01/22/18 06:00 Tracheal Aspirate Gram Stain - Final 01/22/18 06:00 Tracheal Aspirate Sputum Culture - Final NO GROWTH 3 DAYS Impressions: Abdomen/Pelvis CT 01/18/18 20:42 IMPRESSION: Findings suspicious for moderate grade mid small bowel obstruction in level of the proximal to mid ileum. This likely due to adhesions. No abscess. Small Bowel X-Ray 01/19/18 07:00 IMPRESSION: Persistent dilated distal small bowel loops. By 6 hours and 15 minutes, contrast had not yet reached the colon. Plan for KUB in the morning. Results discussed with Dr. Whitmore KUB X-Ray 01/20/18 00:00 IMPRESSION: Residual loops of contrast dilated small bowel within the central abdomen and pelvis suggestive of mid/distal small bowel obstructive process. No contrast within the colon. Chest X-Ray 01/26/18 06:00 IMPRESSION: No significant change. Assessment & Plan - Diagnosis (1) Sepsis associated hypotension Is this a current diagnosis for this admission?: No (2) Small bowel obstruction Is this a current diagnosis for this admission?: Yes Plan: As per surgery (3) Malnutrition Is this a current diagnosis for this admission?: Yes Plan: enteral feedings are initiated (4) Respiratory failure Qualifiers: Chronicity: acute Is this a current diagnosis for this admission?: Yes Plan: off and on bipap stable - Time Total Critical Time (Minutes): 45
--- NOTE | 2018-01-26 13:00 | PDOC PROGRESS REPORT ---
Subjective Progress Note for:: 01/26/18 Subjective:: Some generalized weakness but no other complaints. Having bowel movements. Tolerating tube feeds well. Reason For Visit: PARTIAL SMALL BOWEL OBSTRUCTION DUE TO ADHESIONS Physical Exam Vital Signs: Temp Pulse Resp BP Pulse Ox 98.2 F 111 H 23 H 157/80 H 96 01/26/18 05:41 01/26/18 08:00 01/26/18 10:32 01/26/18 10:32 01/26/18 10:32 Intake & Output 01/25/18 01/26/18 01/27/18 06:59 06:59 06:59 Intake Total 5762 1741 185 Output Total 4557 2722 475 Balance 3760 -641 -207 Weight 52.4 kg 50.3 kg General appearance: PRESENT: no acute distress, cooperative Respiratory exam: PRESENT: clear to auscultation chester Cardiovascular exam: PRESENT: RRR GI/Abdominal exam: PRESENT: other - Soft, nondistended, nontender to palpation. Wound is clean dry and intact. Results Laboratory Results: 01/26/18 05:06 01/26/18 05:06 01/26/18 01/26/18 01/26/18 05:06 05:06 05:06 WBC 13.4 H RBC 3.10 L Hgb 10.0 L Hct 28.9 L MCV 93 MCH 32.2 MCHC 34.5 RDW 13.0 Plt Count 128 L Seg Neutrophils % 83.4 H Lymphocytes % 6.7 L Monocytes % 5.4 Eosinophils % 3.9 Basophils % 0.6 Absolute Neutrophils 11.2 H Absolute Lymphocytes 0.9 Absolute Monocytes 0.7 Absolute Eosinophils 0.5 Absolute Basophils 0.1 Carbonic Acid 1.21 HCO3/H2CO3 Ratio 20:1 ABG pH 7.42 ABG pCO2 40.2 ABG pO2 55.7 L ABG HCO3 25.3 H ABG O2 Saturation 89.5 L ABG Base Excess 0.8 FiO2 RA Sodium 142.0 Potassium 3.9 Chloride 109 H Carbon Dioxide 27 Anion Gap 6 BUN 14 Creatinine 0.80 Est GFR ( Amer) > 60 Est GFR (Non-Af Amer) > 60 Glucose 83 Calcium 7.8 L Magnesium 1.4 L 01/22/18 06:00 Tracheal Aspirate Gram Stain - Final 01/22/18 06:00 Tracheal Aspirate Sputum Culture - Final NO GROWTH 3 DAYS Impressions: Abdomen/Pelvis CT 01/18/18 20:42 IMPRESSION: Findings suspicious for moderate grade mid small bowel obstruction in level of the proximal to mid ileum. This likely due to adhesions. No abscess. Small Bowel X-Ray 01/19/18 07:00 IMPRESSION: Persistent dilated distal small bowel loops. By 6 hours and 15 minutes, contrast had not yet reached the colon. Plan for KUB in the morning. Results discussed with Dr. Whitmore KUB X-Ray 01/20/18 00:00 IMPRESSION: Residual loops of contrast dilated small bowel within the central abdomen and pelvis suggestive of mid/distal small bowel obstructive process. No contrast within the colon. Chest X-Ray 01/26/18 06:00 IMPRESSION: No significant change. Assessment & Plan - Diagnosis (1) Small bowel obstruction with strangulation or infarction Is this a current diagnosis for this admission?: Yes Plan: Status post ileo-cecectomy. Patient looks reasonably well. Will transfer patient to the floor.
--- NOTE | 2018-01-26 18:02 | XCELERA REPORT ---
[address] [address] Transthoracic Echocardiogram Report Name: BECKIE HERNANDEZ Age: 82 yrs Gender: Female : 01/20/1936 Patient Status: In[facility]: 01/26/2018 02:31 PM Procedure: A complete two-dimensional transthoracic echocardiogram was performed (2D, M-mode, spectral and color flow Doppler). The study was technically difficult with many images being suboptimal in quality. Reason For Study: new onset afib Ordering Physician: ALVINA TURNER Performed By: Yarelis Zacarias Interpretation Summary The left ventricular ejection fraction is preserved. There is normal left ventricular wall thickness. The left ventricle is grossly normal size. LV diastolic function could not be adequately assessed. Regional wall motion abnormalities cannot be excluded due to limited visualization. The right ventricular systolic function is normal. The left atrial size is normal. The right atrium is normal in size There is a trace amount of mitral regurgitation There is no mitral valve stenosis. No aortic regurgitation is present. There is no aortic valve stenosis There is a mild amount of tricuspid regurgitation There is mild to moderate pulmonary hypertension by echo Right ventricular systolic pressure is estimated to be elevated at 40-50mmHg. The aortic root is not well visualized but is probably normal size. The inferior vena cava appeared normal and decreased < 50% with respiration (RAP 10-15 mmHg) There is no pericardial effusion. MMode/2D Measurements & Calculations RVDd: 2.0 cm LVIDd: 3.7 cm FS: 42.1 % Ao root diam: 3.1 cm IVSd: 0.55 cm LVIDs: 2.1 cm EDV(Teich): 57.7 ml Ao root area: 7.4 cm2 LVPWd: 0.54 cm ESV(Teich): 15.1 ml EF(Teich): 73.9 % Doppler Measurements & Calculations MV E max shaq: MV dec slope: Ao V2 max: LV V1 max P.6 cm/sec 115.0 cm/sec 4.8 mmHg MV A max shaq: 1043 cm/sec2 Ao max PG: LV V1 max: 43.2 cm/sec MV dec time: 5.3 mmHg 109.2 cm/sec MV E/A: 3.0 0.12 sec PA V2 max: TR max shaq: 71.2 cm/sec 303.9 cm/sec PA max P.0 mmHg TR max P.9 mmHg Left Ventricle The left ventricle is grossly normal size. There is normal left ventricular wall thickness. The left ventricular ejection fraction is preserved. LV diastolic function could not be adequately assessed. Regional wall motion abnormalities cannot be excluded due to limited visualization. Right Ventricle The right ventricle is grossly normal size. There is normal right ventricular wall thickness. The right ventricular systolic function is normal. Atria The right atrium is normal in size. The left atrial size is normal. Interarterial septum not well visualized and not well dopplered. Cannot comment on ASD/PFO presence. Mitral Valve The mitral valve leaflets are sclerotic, but show no functional abnormalities. There is no mitral valve stenosis. There is a trace amount of mitral regurgitation. Aortic Valve The aortic valve is not well visualized secondary to technical limitations. The aortic valve opens well. There is no aortic valve stenosis. No aortic regurgitation is present. Tricuspid Valve The tricuspid valve is not well visualized, but is grossly normal. There is no tricuspid stenosis. There is a mild amount of tricuspid regurgitation. There is mild to moderate pulmonary hypertension by echo. Right ventricular systolic pressure is estimated to be elevated at 40-50mmHg. Pulmonic Valve The pulmonic valve is not well visualized. Great Vessels The aortic root is not well visualized but is probably normal size. The inferior vena cava appeared normal and decreased < 50% with respiration (RAP 10-15 mmHg). Effusions There is no pericardial effusion. : ALVINA TURNER > Alvina Turner
[2018-01-26] MEDS: ONDANSETRON HCL INJ/PF 4 MG/2 ML SDV IV PRN (23:22)
--- NOTE | 2018-01-26 23:24 | PDOC CONSULTATION ---
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 Patient subsequently was recuperating in the unit and was subsequently extubated earlier today. This morning she was noted to have episodes of atrial fibrillation. However subsequently with replacement of electrolytes, and when I saw the patient in the evening, she was maintaining sinus rhythm. Patient subsequently had orders to be moved out to the floor bed. Past Medical History Cardiac Medical History: Reports: Hyperlipidema Past Surgical History Past Surgical History: Reports: Cholecystectomy - laparoscopic about 20 years ago, Other - Biopsy of Cervix Social History Information Source: Relative Lives with: Family Smoking Status: Current Every Day Smoker Frequency of Alcohol Use: Rare Hx Recreational Drug Use: No Drugs: None Hx Prescription Drug Abuse: No - Advance Directive Resuscitation Status: Full Code Family History Family History: Reviewed & Not Pertinent Parental Family History Reviewed: Yes Children Family History Reviewed: Yes Sibling(s) Family History Reviewed.: Yes - [place] to be noncontributory at patient 's age Medication/Allergy Home Medications: Aspirin [Lo-Dose Aspirin EC] 81 mg PO DAILY 01/19/18 Multivitamin [Daily Multiple Vitamin] 1 each PO DAILY 01/19/18 Simvastatin [Zocor 10 mg Tablet] 10 mg PO QPM 01/19/18 Zolpidem Tartrate [Ambien] 10 mg PO QHS 01/19/18 Allergies/Adverse Reactions: No Known Allergies Allergy (Verified 10/14/17 05:05) Review of Systems ROS unobtainable: Due to mental status Physical Exam Vital Signs: Temp Pulse Resp BP Pulse Ox 99.8 F 108 H 22 H 133/65 H 97 01/26/18 16:00 01/26/18 16:00 01/26/18 16:00 01/26/18 16:00 01/26/18 16:00 Intake & Output 01/25/18 01/26/18 01/27/18 06:59 06:59 06:59 Intake Total 5773 1741 185 Output Total 3125 3975 96876 Balance 5938 -860 -54145 Weight 52.4 kg 50.3 kg Exam: General appearance: PRESENT: no acute distress, cooperative, disheveled, hard of hearing, thin, well-developed, well-nourished Head exam: PRESENT: atraumatic, normocephalic Eye exam: PRESENT: conjunctiva pale, EOMI. ABSENT: nystagmus, periorbital swelling, scleral icterus Mouth exam: PRESENT: dry mucosa, neck supple, tongue midline Neck exam: ABSENT: carotid bruit, JVD, lymphadenopathy, thyromegaly, tracheal deviation, tracheostomy Respiratory exam: PRESENT: decreased breath sounds, prolonged expiratory phas, rhonchi, unlabored. ABSENT: retraction, stridor Cardiovascular exam: PRESENT: irregular rhythm, tachycardia Pulses: PRESENT: normal radial pulses GI/Abdominal exam: PRESENT: other - Tolerating enteral feeds status post surgery Gentrourinary exam: PRESENT: indwelling catheter Extremities exam: ABSENT: calf tenderness, clubbing, joint swelling Musculoskeletal exam: ABSENT: deformity, dislocation Neurological exam: PRESENT: alert, awake Psychiatric exam: PRESENT: flat affect Skin exam: PRESENT: dry, warm Results Laboratory Results: 01/26/18 05:06 01/26/18 05:06 01/26/18 01/26/18 01/26/18 05:06 05:06 05:06 WBC 13.4 H RBC 3.10 L Hgb 10.0 L Hct 28.9 L MCV 93 MCH 32.2 MCHC 34.5 RDW 13.0 Plt Count 128 L Seg Neutrophils % 83.4 H Lymphocytes % 6.7 L Monocytes % 5.4 Eosinophils % 3.9 Basophils % 0.6 Absolute Neutrophils 11.2 H Absolute Lymphocytes 0.9 Absolute Monocytes 0.7 Absolute Eosinophils 0.5 Absolute Basophils 0.1 Carbonic Acid 1.21 HCO3/H2CO3 Ratio 20:1 ABG pH 7.42 ABG pCO2 40.2 ABG pO2 55.7 L ABG HCO3 25.3 H ABG O2 Saturation 89.5 L ABG Base Excess 0.8 FiO2 RA Sodium 142.0 Potassium 3.9 Chloride 109 H Carbon Dioxide 27 Anion Gap 6 BUN 14 Creatinine 0.80 Est GFR ( Amer) > 60 Est GFR (Non-Af Amer) > 60 Glucose 83 Calcium 7.8 L Magnesium 1.4 L EKG Comments: Transient atrial fibrillation noted. Impressions: Abdomen/Pelvis CT 01/18/18 20:42 IMPRESSION: Findings suspicious for moderate grade mid small bowel obstruction in level of the proximal to mid ileum. This likely due to adhesions. No abscess. Small Bowel X-Ray 01/19/18 07:00 IMPRESSION: Persistent dilated distal small bowel loops. By 6 hours and 15 minutes, contrast had not yet reached the colon. Plan for KUB in the morning. Results discussed with Dr. Whitmore KUB X-Ray 01/20/18 00:00 IMPRESSION: Residual loops of contrast dilated small bowel within the central abdomen and pelvis suggestive of mid/distal small bowel obstructive process. No contrast within the colon. Chest X-Ray 01/26/18 06:00 IMPRESSION: No significant change. Assessment & Plan - Diagnosis (1) Paroxysmal atrial fibrillation Is this a current diagnosis for this admission?: Yes (2) Hypomagnesemia Is this a current diagnosis for this admission?: Yes (3) Hypokalemia Is this a current diagnosis for this admission?: Yes (4) History of surgery for acute abdominal pain Is this a current diagnosis for this admission?: Yes - Notes Notes: Paroxysmal atrial fibrillation: Postop. Recommend IV beta-willi at low dose as tolerated by blood pressure. Maintain electrolytes within normal limit. Agree with magnesium infusion and potassium supplementation. Since atrial fibrillation was very transient, no need for anticoagulation except for DVT prophylaxis. If recurrent atrial fibrillation may consider amiodarone bolus and drip protocol. Hypomagnesemia: Continue with potassium and magnesium supplementation. Hypokalemia: Continue with potassium replacement. Status post abdominal surgery for strangulated bowel: Monitor patient very closely, being done by the surgeon. - Time Time Spent: 30 to 50 Minutes - More than 50% of the time spent coordinating care , discussing management plans with involved caregivers. Management plans discussed with involved personnels. Medical decision making was of moderate to high complexity, patient's has multiple comorbidities. Medications reviewed and adjusted accordingly: Yes
[2018-01-26] MEDS: ACETAMINOPHEN SOLN 325 MG/10.15 ML UDCUP NG PRN (23:26)
[2018-01-27] MEDS: KETOROLAC TROMETHAMINE INJ/PF 30 MG/1 ML SDV IV PRN ×2 (05:53→15:20)
[2018-01-27 06:05] LABS: ABSOLUTE BASOPHILS # (AUTO) 0.1 10^3/uL (0.0-0.2); ABSOLUTE EOSINOPHILS # (AUTO) 0.5 10^3/uL (0.0-0.6); ABSOLUTE LYMPHOCYTES (AUTO) 1.3 10^3/uL (0.5-4.7); ABSOLUTE MONOCYTES (AUTO) 0.8 10^3/uL (0.1-1.4); ABSOLUTE NEUT (AUTO) 9.1 10^3/uL (1.7-8.2); BASOPHILS % (AUTO) 0.6 % (0-2); EOSINOPHILS % (AUTO) 4.5 % (0-6); HEMATOCRIT 25.9 % (36.0-47.0); HEMOGLOBIN 8.9 g/dL (12.0-15.5); LYMPHOCYTES % (AUTO) 10.9 % (13-45); MEAN CORPUSCULAR HEMOGLOBIN 32.4 pg (27.0-33.4); MEAN CORPUSCULAR HGB CONC 34.3 g/dL (32.0-36.0); MEAN CORPUSCULAR VOLUME 94 fl (80-97); MONOCYTES % (AUTO) 7.1 % (3-13); PLATELET COUNT 146 10^3/uL (150-450); RED BLOOD COUNT 2.75 10^6/uL (3.72-5.28); RED CELL DISTRIBUTION WIDTH 13.2 % (11.5-14.0); SEGMENTED NEUTROPHILS % (AUTO) 76.9 % (42-78); TOTAL CELLS COUNTED % (AUTO) 100 %; WHITE BLOOD COUNT 11.9 10^3/uL (4.0-10.5)
[2018-01-27 06:17] LABS: ARTERIAL BLOOD BASE EXCESS 4.5 mmol/L; ARTERIAL BLOOD H2CO3 1.29 mmol/L (1.05-1.35); ARTERIAL BLOOD O2 SATURATION 97.1 % (94-98); ARTERIAL BLOOD PCO2 42.9 mmHg (35-45); ARTERIAL BLOOD PH 7.45 (7.35-7.45); ARTERIAL BLOOD PO2 88.6 mmHg (80-100); ARTERIAL BLOOD TOTAL CO2 30.3 mmol/L (21-25)
[2018-01-27 06:18] LABS: ARTERIAL BLOOD FIO2 2L
[2018-01-27 06:26] LABS: ALANINE AMINOTRANSFERASE 32 U/L (9-52); ALBUMIN 1.9 g/dL (3.5-5.0); ALKALINE PHOSPHATASE 81 U/L (38-126); ASPARTATE AMINO TRANSFERASE 31 U/L (14-36); BILIRUBIN,DIRECT 0.2 mg/dL (0.0-0.4); BILIRUBIN,TOTAL 0.3 mg/dL (0.2-1.3); BLOOD UREA NITROGEN 19 mg/dL (7-20); CALCIUM 7.9 mg/dL (8.4-10.2); GLUCOSE 81 mg/dL (75-110); POTASSIUM 3.7 mmol/L (3.6-5.0); TOTAL PROTEIN 4.4 g/dL (6.3-8.2)
[2018-01-27 06:31] LABS: CARBON DIOXIDE 33 mmol/L (22-30); CHLORIDE 104 mmol/L (98-107); SODIUM 139.4 mmol/L (137-145)
[2018-01-27 06:49] LABS: ANION GAP 2 (5-19)
--- NOTE | 2018-01-27 09:53 | RADIOLOGY REPORT (SQ) ---
EXAM DESCRIPTION: CHEST SINGLE VIEW COMPLETED DATE/TIME: 01/27/2018 9:45 am REASON FOR STUDY: resp failure COMPARISON: 01/26/2018 NUMBER OF VIEWS: One view. TECHNIQUE: Single frontal radiographic image of the chest acquired. LIMITATIONS: None. FINDINGS: LUNGS AND PLEURA: Stable appearance. MEDIASTINUM AND HILAR STRUCTURES: Stable heart size and mediastinal structures. HEART AND VASCULAR STRUCTURES: Stable appearance. BONES: No acute findings. HARDWARE: The NG tube is been removed. Left-sided central line remains in place. OTHER: No other significant finding. IMPRESSION: Interval removal of the NG tube. No other interval change. TECHNICAL DOCUMENTATION: JOB ID: [id number] [employer]- All Rights Reserved Reading location - IP/workstation name: [email or web address]
[2018-01-27] MEDS: FAMOTIDINE INJ/PF 20 MG/2 ML SDV IV SCH ×2 (10:26→22:17)
--- NOTE | 2018-01-27 15:57 | PDOC PROGRESS REPORT ---
Subjective Progress Note for:: 01/27/18 Subjective:: Feels well. She pulled out her NG tube that was being used for tube feeds. She is hungry. No complaints. Reason For Visit: PARTIAL SMALL BOWEL OBSTRUCTION DUE TO ADHESIONS Physical Exam Vital Signs: Temp Pulse Resp BP Pulse Ox 98.2 F 89 16 138/60 H 99 01/27/18 12:00 01/27/18 12:00 01/27/18 12:00 01/27/18 12:00 01/27/18 12:00 Intake & Output 01/26/18 01/27/18 01/28/18 06:59 06:59 06:59 Intake Total 1741 285 Output Total 2731 16269 Balance -247 -38932 Weight 50.3 kg 53.4 kg General appearance: PRESENT: no acute distress, cooperative Eye exam: PRESENT: conjunctiva pink Respiratory exam: PRESENT: clear to auscultation chester Cardiovascular exam: PRESENT: RRR GI/Abdominal exam: PRESENT: other - Soft, nondistended, nontender to palpation. Results Laboratory Results: 01/27/18 05:30 01/27/18 05:30 01/27/18 01/27/18 01/27/18 05:30 05:30 06:05 WBC 11.9 H RBC 2.75 L Hgb 8.9 L Hct 25.9 L MCV 94 MCH 32.4 MCHC 34.3 RDW 13.2 Plt Count 146 L Seg Neutrophils % 76.9 Lymphocytes % 10.9 L Monocytes % 7.1 Eosinophils % 4.5 Basophils % 0.6 Absolute Neutrophils 9.1 H Absolute Lymphocytes 1.3 Absolute Monocytes 0.8 Absolute Eosinophils 0.5 Absolute Basophils 0.1 Carbonic Acid 1.29 HCO3/H2CO3 Ratio 22:1 ABG pH 7.45 ABG pCO2 42.9 ABG pO2 88.6 ABG HCO3 29.0 H ABG O2 Saturation 97.1 ABG Base Excess 4.5 FiO2 2L Sodium 139.4 Potassium 3.7 Chloride 104 Carbon Dioxide 33 H Anion Gap 2 L BUN 19 Creatinine 0.80 Est GFR ( Amer) > 60 Est GFR (Non-Af Amer) > 60 Glucose 81 Calcium 7.9 L Magnesium 1.8 Total Bilirubin 0.3 AST 31 ALT 32 Alkaline Phosphatase 81 Total Protein 4.4 L Albumin 1.9 L 01/22/18 07:00 Blood Blood Culture - Final NO GROWTH IN 5 DAYS 01/22/18 06:00 Blood Blood Culture - Final NO GROWTH IN 5 DAYS Impressions: Abdomen/Pelvis CT 01/18/18 20:42 IMPRESSION: Findings suspicious for moderate grade mid small bowel obstruction in level of the proximal to mid ileum. This likely due to adhesions. No abscess. Small Bowel X-Ray 01/19/18 07:00 IMPRESSION: Persistent dilated distal small bowel loops. By 6 hours and 15 minutes, contrast had not yet reached the colon. Plan for KUB in the morning. Results discussed with Dr. Whitmore KUB X-Ray 01/20/18 00:00 IMPRESSION: Residual loops of contrast dilated small bowel within the central abdomen and pelvis suggestive of mid/distal small bowel obstructive process. No contrast within the colon. Chest X-Ray 01/27/18 06:00 IMPRESSION: Interval removal of the NG tube. No other interval change. Assessment & Plan - Diagnosis (1) Small bowel obstruction with strangulation or infarction Is this a current diagnosis for this admission?: Yes Plan: Status post ileo-cecectomy. Patient looks good. Will start p.o. diet. Start physical therapy. Possible discharge home in the next couple of days.
--- NOTE | 2018-01-27 21:49 | Progress Note ---
Provider Note Provider Note: CARDIOLOGY PROGRESS NOTES by Dr. Chinyere Poe on 01/27/2018. SUBJECTIVE: The patient denies any chest pain or discomfort. There is no palpitations. There is no shortness of breath. There is no PND orthopnea. There is no recurrence of atrial fibrillation. There is no TIA CVA symptoms. PHYSICAL EXAMINATION: The patient appears to be a frail build and chronically ill. She appears older than his stated age. Selected Entries 01/27/18 12:00 Temperature 98.2 F Temperature Oral Source Pulse Rate 89 Respiratory 16 Rate Blood Pressure 138/60 H [Right Upper Arm] Blood Pressure 86 Mean [Right Upper Arm] Blood Pressure Supine Position [Right Upper Arm] O2 Sat by Pulse 99 Oximetry Oxygen Delivery Nasal Cannula Method ( includes room air) Oxygen Flow 2 Rate HEAD: Is atraumatic normocephalic. EYES: Pupils are equal round regular reactive to light and accommodation. His conjunctival pallor. There is no scleral icterus. Extraocular movements are normal. ENT: Is negative. SKIN: THERE ARE NO SKIN LESIONS OR SKIN RASHES. THERE IS NO PETECHIA OR ECCHYMOSIS neck: Is supple. There is no JVD. Carotids are equal there is no bruit there is no lymphadenopathy. There is no goiter. Trachea central. LUNGS: There is diminished air entry and prolonged expiration. There is no rhonchi rales or wheezing. There is no chest wall tenderness. On percussion there is hyperresonance throughout. There is no accessory muscles of respirations in use heart: S1-S2 is heard S1 is of normal intensity. There is no S3 gallop there is no S4 gallop. There is systolic murmur left sternal border and apex there is no rub. ABDOMEN: Is soft nontender. There is no hepatosplenic megaly. Bowel sounds well heard. There is no guarding or rigidity. EXTREMITIES: Femorals are diminished. There is no femoral bruits. Leg pulses are diminished. There is no pedal edema. There is no DVT or cellulitis. There is no calf tenderness. There is no sinus or clubbing. HAIR DRYER: The patient is conscious awake alert oriented x3 with no focal deficits. PSYCHIATRIC: The patient judgment and insight are intact. Her affect is normal. 01/27/18 01/27/18 01/27/18 05:30 05:30 06:05 WBC 11.9 H Hgb 8.9 L Hct 25.9 L Plt Count 146 L ABG pH 7.45 ABG pCO2 42.9 ABG pO2 88.6 ABG HCO3 29.0 H ABG Total CO2 30.3 H ABG O2 Saturation 97.1 FiO2 2L Sodium 139.4 Potassium 3.7 Chloride 104 Carbon Dioxide 33 H BUN 19 Creatinine 0.80 Est GFR (Non-Af Amer) > 60 Glucose 81 Calcium 7.9 L Magnesium 1.8 Total Bilirubin 0.3 Direct Bilirubin 0.2 Neonat Total Bilirubin Not Reportable Neonat Direct Bilirubin Not Reportable Neonat Indirect Bili Not Reportable AST 31 ALT 32 Alkaline Phosphatase 81 Total Protein 4.4 L Albumin 1.9 L Impression/RECOMMENDATION: 1. Paroxysmal Atrial Fibrillation. At Present Resolved Most Likely Secondary to Electrolyte Imbalance. But Would Recommend That the Patient Is a 30-Day Event Monitor As an Outpatient.. LATER WOULD RECOMMEND CARDIOLITE Lexiscan Stress Test. This Can Be Done As an Outpatient. 2. ELECTROLYTE IMBALANCE: At Present Resolved Potassium Magnesium within Normal Limits. 3. COPD: At Present Stable, without Any Symptoms or Signs of Acute Exacerbation of COPD. 4. Status Post Surgery for Bowel Obstruction. Patient Remained Stable. Her Medications Have Been Reviewed. Discussed the Case with Attending Physician. Medical Decision Making Is of Moderate Complexity. 40 Minutes Spent on This Patient with More Than 50% of Time Spent in Direct Patient Care. Would Recommend the Patient Have a Cardiology Outpatient Follow-Up. The Patient Will Decide As to Who She Wants to Follow-Up with. As Cardiac Status Is Stable We Will Sign off the Case. Thanking You End of Dictation.
[2018-01-27] MEDS: ACETAMINOPHEN SOLN 325 MG/10.15 ML UDCUP NG PRN (22:17)
[2018-01-28] MEDS: ACETAMINOPHEN SOLN 325 MG/10.15 ML UDCUP NG PRN (04:41)
[2018-01-28] MEDS: FAMOTIDINE INJ/PF 20 MG/2 ML SDV IV SCH ×2 (10:31→21:59)
[2018-01-28] MEDS ORDERED: FAMOTIDINE INJ/PF 20 MG/2 ML SDV IV ONE (10:35)
--- NOTE | 2018-01-28 11:05 | PDOC PROGRESS REPORT ---
Subjective Progress Note for:: 01/27/18 Subjective:: Continues to improve Reason For Visit: PARTIAL SMALL BOWEL OBSTRUCTION DUE TO ADHESIONS Physical Exam Vital Signs: Temp Pulse Resp BP Pulse Ox 98.6 F 89 20 132/55 H 100 01/28/18 00:00 01/28/18 00:00 01/28/18 00:00 01/28/18 00:00 01/28/18 00:00 Intake & Output 01/27/18 01/28/18 01/29/18 06:59 06:59 06:59 Intake Total 285 322 Output Total 69839 750 Balance -27252 -428 Weight 53.4 kg 50.6 kg General appearance: PRESENT: no acute distress, cooperative, disheveled, thin Head exam: PRESENT: atraumatic, normocephalic Eye exam: PRESENT: conjunctiva pale, EOMI. ABSENT: nystagmus, periorbital swelling Mouth exam: PRESENT: moist, neck supple, tongue midline Neck exam: ABSENT: carotid bruit, JVD, lymphadenopathy, thyromegaly, tracheal deviation, tracheostomy Respiratory exam: PRESENT: decreased breath sounds, prolonged expiratory phas, rhonchi, unlabored. ABSENT: retraction, stridor Cardiovascular exam: PRESENT: RRR, +S1, +S2 Pulses: PRESENT: normal radial pulses GI/Abdominal exam: PRESENT: soft Gentrourinary exam: PRESENT: indwelling catheter Extremities exam: ABSENT: calf tenderness, clubbing, joint swelling Musculoskeletal exam: ABSENT: deformity, dislocation Neurological exam: PRESENT: alert, awake Psychiatric exam: PRESENT: normal mood Skin exam: PRESENT: dry, warm Results Laboratory Results: 01/27/18 05:30 01/27/18 05:30 01/22/18 07:00 Blood Blood Culture - Final NO GROWTH IN 5 DAYS 01/22/18 06:00 Blood Blood Culture - Final NO GROWTH IN 5 DAYS Impressions: Abdomen/Pelvis CT 01/18/18 20:42 IMPRESSION: Findings suspicious for moderate grade mid small bowel obstruction in level of the proximal to mid ileum. This likely due to adhesions. No abscess. Small Bowel X-Ray 01/19/18 07:00 IMPRESSION: Persistent dilated distal small bowel loops. By 6 hours and 15 minutes, contrast had not yet reached the colon. Plan for KUB in the morning. Results discussed with Dr. Whitmore KUB X-Ray 01/20/18 00:00 IMPRESSION: Residual loops of contrast dilated small bowel within the central abdomen and pelvis suggestive of mid/distal small bowel obstructive process. No contrast within the colon. Chest X-Ray 01/27/18 06:00 IMPRESSION: Interval removal of the NG tube. No other interval change. Assessment & Plan - Diagnosis (1) Sepsis associated hypotension Is this a current diagnosis for this admission?: No (2) Small bowel obstruction Is this a current diagnosis for this admission?: Yes Plan: As per surgery (3) Malnutrition Is this a current diagnosis for this admission?: Yes Plan: enteral feedings are initiated (4) Respiratory failure Qualifiers: Chronicity: acute Is this a current diagnosis for this admission?: Yes Plan: stable
--- NOTE | 2018-01-28 11:06 | PDOC PROGRESS REPORT ---
Subjective Progress Note for:: 01/28/18 Subjective:: Continues to improve Reason For Visit: PARTIAL SMALL BOWEL OBSTRUCTION DUE TO ADHESIONS Physical Exam Vital Signs: Temp Pulse Resp BP Pulse Ox 98.6 F 89 20 132/55 H 95 01/28/18 00:00 01/28/18 00:00 01/28/18 00:00 01/28/18 00:00 01/28/18 08:59 Intake & Output 01/27/18 01/28/18 01/29/18 06:59 06:59 06:59 Intake Total 285 322 Output Total 36560 750 Balance -71519 -428 Weight 53.4 kg 50.6 kg General appearance: PRESENT: no acute distress, cooperative, disheveled, thin, well-developed, well-nourished Head exam: PRESENT: atraumatic, normocephalic Eye exam: PRESENT: conjunctiva pale, EOMI. ABSENT: nystagmus, periorbital swelling, scleral icterus Mouth exam: PRESENT: moist, neck supple, tongue midline Neck exam: ABSENT: carotid bruit, JVD, lymphadenopathy, thyromegaly, tracheal deviation, tracheostomy Respiratory exam: PRESENT: decreased breath sounds, prolonged expiratory phas, rhonchi, unlabored. ABSENT: retraction, stridor Cardiovascular exam: PRESENT: RRR, +S1, +S2 Pulses: PRESENT: normal radial pulses GI/Abdominal exam: PRESENT: soft Extremities exam: ABSENT: calf tenderness, clubbing, joint swelling Musculoskeletal exam: ABSENT: ambulatory, deformity, dislocation Neurological exam: PRESENT: alert, awake Psychiatric exam: PRESENT: normal mood Skin exam: PRESENT: dry, warm Results Laboratory Results: 01/27/18 05:30 01/27/18 05:30 01/22/18 07:00 Blood Blood Culture - Final NO GROWTH IN 5 DAYS 01/22/18 06:00 Blood Blood Culture - Final NO GROWTH IN 5 DAYS Impressions: Abdomen/Pelvis CT 01/18/18 20:42 IMPRESSION: Findings suspicious for moderate grade mid small bowel obstruction in level of the proximal to mid ileum. This likely due to adhesions. No abscess. Small Bowel X-Ray 01/19/18 07:00 IMPRESSION: Persistent dilated distal small bowel loops. By 6 hours and 15 minutes, contrast had not yet reached the colon. Plan for KUB in the morning. Results discussed with Dr. Whitmore KUB X-Ray 01/20/18 00:00 IMPRESSION: Residual loops of contrast dilated small bowel within the central abdomen and pelvis suggestive of mid/distal small bowel obstructive process. No contrast within the colon. Chest X-Ray 01/27/18 06:00 IMPRESSION: Interval removal of the NG tube. No other interval change. Assessment & Plan - Diagnosis (1) Sepsis associated hypotension Is this a current diagnosis for this admission?: No (2) Small bowel obstruction Is this a current diagnosis for this admission?: Yes Plan: As per surgery (3) Malnutrition Is this a current diagnosis for this admission?: Yes (4) Respiratory failure Qualifiers: Chronicity: acute Is this a current diagnosis for this admission?: Yes Plan: Resolved
--- NOTE | 2018-01-28 13:29 | PDOC PROGRESS REPORT ---
Subjective Reason For Visit: PARTIAL SMALL BOWEL OBSTRUCTION DUE TO ADHESIONS Physical Exam Vital Signs: Temp Pulse Resp BP Pulse Ox 98.3 F 101 H 13 148/60 H 95 01/28/18 08:57 01/28/18 08:57 01/28/18 08:57 01/28/18 08:57 01/28/18 08:59 Intake & Output 01/27/18 01/28/18 01/29/18 06:59 06:59 06:59 Intake Total 285 322 Output Total 96067 750 Balance -48397 -428 Weight 53.4 kg 50.6 kg Results Laboratory Results: 01/27/18 05:30 01/27/18 05:30 Impressions: Abdomen/Pelvis CT 01/18/18 20:42 IMPRESSION: Findings suspicious for moderate grade mid small bowel obstruction in level of the proximal to mid ileum. This likely due to adhesions. No abscess. Small Bowel X-Ray 01/19/18 07:00 IMPRESSION: Persistent dilated distal small bowel loops. By 6 hours and 15 minutes, contrast had not yet reached the colon. Plan for KUB in the morning. Results discussed with Dr. Whitmore KUB X-Ray 01/20/18 00:00 IMPRESSION: Residual loops of contrast dilated small bowel within the central abdomen and pelvis suggestive of mid/distal small bowel obstructive process. No contrast within the colon. Chest X-Ray 01/27/18 06:00 IMPRESSION: Interval removal of the NG tube. No other interval change. Assessment & Plan - Diagnosis (1) Small bowel obstruction Is this a current diagnosis for this admission?: Yes - Plan Summary Plan Summary: This is an 82-year-old female status post exploratory laparotomy for a bowel obstruction. She underwent small bowel resection with segmental colon resection. Is doing well. She has no complaints today. I have discussed her living situation with 1 of her children. They have requested that she not return home. I will have her evaluated for rehab versus nursing facility placement. Order oral pain medications. Pulmonary toilet. Ambulate with assistance/physical therapy.
[2018-01-28] MEDS: IBUPROFEN 800 MG TABLET PO SCH ×2 (15:27→17:46)
[2018-01-28] MEDS: TRAMADOL HCL 50 MG TABLET PO PRN (20:48)
[2018-01-29] MEDS: IBUPROFEN 800 MG TABLET PO SCH ×3 (07:57→17:18)
[2018-01-29] MEDS: FAMOTIDINE INJ/PF 20 MG/2 ML SDV IV SCH ×2 (09:16→22:06)
--- NOTE | 2018-01-29 11:50 | PDOC PROGRESS REPORT ---
Subjective Progress Note for:: 01/29/18 Subjective:: Patient feels well. Appetite is improving. She is working with physical therapy for ambulation. Reason For Visit: PARTIAL SMALL BOWEL OBSTRUCTION DUE TO ADHESIONS Physical Exam Vital Signs: Temp Pulse Resp BP Pulse Ox 98.1 F 89 16 124/45 L 90 L 01/29/18 07:47 01/29/18 07:47 01/29/18 07:47 01/29/18 07:47 01/29/18 08:38 Intake & Output 01/28/18 01/29/18 01/30/18 06:59 06:59 06:59 Intake Total 322 765 Output Total 750 300 Balance -428 465 Weight 50.6 kg 49.3 kg General appearance: PRESENT: no acute distress, cooperative Respiratory exam: PRESENT: clear to auscultation chester Cardiovascular exam: PRESENT: RRR GI/Abdominal exam: PRESENT: other - Soft, nondistended, minimal tenderness. Wound clean dry and intact. Results Laboratory Results: 01/27/18 05:30 01/27/18 05:30 Impressions: Abdomen/Pelvis CT 01/18/18 20:42 IMPRESSION: Findings suspicious for moderate grade mid small bowel obstruction in level of the proximal to mid ileum. This likely due to adhesions. No abscess. Small Bowel X-Ray 01/19/18 07:00 IMPRESSION: Persistent dilated distal small bowel loops. By 6 hours and 15 minutes, contrast had not yet reached the colon. Plan for KUB in the morning. Results discussed with Dr. Whitmore KUB X-Ray 01/20/18 00:00 IMPRESSION: Residual loops of contrast dilated small bowel within the central abdomen and pelvis suggestive of mid/distal small bowel obstructive process. No contrast within the colon. Chest X-Ray 01/27/18 06:00 IMPRESSION: Interval removal of the NG tube. No other interval change. Assessment & Plan - Diagnosis (1) Small bowel obstruction with strangulation or infarction Is this a current diagnosis for this admission?: Yes Plan: Status post ileo-cecectomy. Patient looks good. There is some confusion about placement versus going home. Patient states now that she would rather go home. Will continue to work with physical therapy today and will obtain social service discharge planning consultation and will plan discharge accordingly. Her hematocrit has come down slightly. Suspect it is due to equilibration but will repeat her hematocrit tomorrow.
[2018-01-29] MEDS: TRAMADOL HCL 50 MG TABLET PO PRN (23:57)
[2018-01-30] MEDS: TRAMADOL HCL 50 MG TABLET PO PRN (05:56)
[2018-01-30 06:37] LABS: HEMATOCRIT 25.8 % (36.0-47.0); HEMOGLOBIN 8.7 g/dL (12.0-15.5); MEAN CORPUSCULAR HEMOGLOBIN 32.1 pg (27.0-33.4); MEAN CORPUSCULAR HGB CONC 33.7 g/dL (32.0-36.0); MEAN CORPUSCULAR VOLUME 95 fl (80-97); PLATELET COUNT 200 10^3/uL (150-450); RED BLOOD COUNT 2.72 10^6/uL (3.72-5.28); RED CELL DISTRIBUTION WIDTH 12.8 % (11.5-14.0); WHITE BLOOD COUNT 14.2 10^3/uL (4.0-10.5)
[2018-01-30] MEDS: IBUPROFEN 800 MG TABLET PO SCH ×3 (07:55→17:22)
[2018-01-30] MEDS: FAMOTIDINE INJ/PF 20 MG/2 ML SDV IV SCH ×2 (09:43→21:11)
--- NOTE | 2018-01-30 14:58 | PDOC PROGRESS REPORT ---
Subjective Progress Note for:: 01/30/18 Subjective:: no c/o, flatus present, no stools today Reason For Visit: PARTIAL SMALL BOWEL OBSTRUCTION DUE TO ADHESIONS Physical Exam Vital Signs: Temp Pulse Resp BP Pulse Ox 98.1 F 90 14 139/57 H 98 01/30/18 08:25 01/30/18 08:25 01/30/18 08:25 01/30/18 08:25 01/30/18 08:25 Intake & Output 01/29/18 01/30/18 01/31/18 06:59 06:59 06:59 Intake Total 765 320 Output Total 300 Balance 465 320 Weight 49.3 kg 49.3 kg General appearance: PRESENT: no acute distress Respiratory exam: PRESENT: clear to auscultation chester Cardiovascular exam: PRESENT: RRR GI/Abdominal exam: PRESENT: normal bowel sounds, soft, other - incision c/d/i Extremities exam: PRESENT: +2 edema - both lower extermities Skin exam: PRESENT: other - left forearm volar cellulitis with long erythematous streak Results Laboratory Results: 01/30/18 06:00 01/27/18 05:30 01/30/18 06:00 WBC 14.2 H RBC 2.72 L Hgb 8.7 L Hct 25.8 L MCV 95 MCH 32.1 MCHC 33.7 RDW 12.8 Plt Count 200 Impressions: Abdomen/Pelvis CT 01/18/18 20:42 IMPRESSION: Findings suspicious for moderate grade mid small bowel obstruction in level of the proximal to mid ileum. This likely due to adhesions. No abscess. Small Bowel X-Ray 01/19/18 07:00 IMPRESSION: Persistent dilated distal small bowel loops. By 6 hours and 15 minutes, contrast had not yet reached the colon. Plan for KUB in the morning. Results discussed with Dr. Whitmore KUB X-Ray 01/20/18 00:00 IMPRESSION: Residual loops of contrast dilated small bowel within the central abdomen and pelvis suggestive of mid/distal small bowel obstructive process. No contrast within the colon. Chest X-Ray 01/27/18 06:00 IMPRESSION: Interval removal of the NG tube. No other interval change. Assessment & Plan - Diagnosis (1) Small bowel obstruction Is this a current diagnosis for this admission?: Yes - Plan Summary Plan Summary: A/ POD #10 after laparotomy, ileocecectomy for SBO patient tolerating po well with return of bowel function Physical exam shows erythema and edema with superficial phlebitis of the left forearm WBC increased to 14 k today from 11k yesterday H/H sable since yesterday P/ patient cannot discharged to home due to the increased WBC Blood cx via CVL and peripheral UA and UCx Chest Xray PA+ Lateral start Mefoxin 1 gr IVPB q8 for prophylaxis
[2018-01-30] MEDS ORDERED: AMPICILLIN SOD/SULBACTAM 3 GM VIAL IV SCH (15:15)
--- NOTE | 2018-01-30 15:43 | RADIOLOGY REPORT (SQ) ---
EXAM DESCRIPTION: CHEST 2 VIEWS COMPLETED DATE/TIME: 01/30/2018 3:27 pm REASON FOR STUDY: elevated postop WBC, r/o pneumonia, need of O2 COMPARISON: 11/03/2015 NUMBER OF VIEWS: Two view TECHNIQUE: Frontal and lateral radiographic images of the chest acquired. LIMITATIONS: None. FINDINGS: LUNGS AND PLEURA: Small bilateral pleural effusions. Right middle lobe infiltrate. Right apical pleural thickening. MEDIASTINUM AND HILAR STRUCTURES: Stable heart size and mediastinal structures. HEART AND VASCULAR STRUCTURES: Stable appearance. SUPPORT DEVICES: Left-sided port with tip overlying SVC. BONES: No acute findings. OTHER: No other significant finding. IMPRESSION: Bilateral pleural effusions. Infiltrate in the middle lobe. TECHNICAL DOCUMENTATION: JOB ID: [id number] [email or web address]- All Rights Reserved Reading location - IP/workstation name: [email or web address]
--- NOTE | 2018-01-30 15:53 | PDOC PROGRESS REPORT ---
Subjective Progress Note for:: 01/30/18 Subjective:: She without complaints Reason For Visit: PARTIAL SMALL BOWEL OBSTRUCTION DUE TO ADHESIONS Physical Exam Vital Signs: Temp Pulse Resp BP Pulse Ox 98.1 F 90 14 139/57 H 98 01/30/18 08:25 01/30/18 08:25 01/30/18 08:25 01/30/18 08:25 01/30/18 08:25 Intake & Output 01/29/18 01/30/18 01/31/18 06:59 06:59 06:59 Intake Total 765 320 Output Total 300 Balance 465 320 Weight 49.3 kg 49.3 kg General appearance: PRESENT: no acute distress, cooperative, disheveled, thin, well-developed, well-nourished Head exam: PRESENT: atraumatic, normocephalic Eye exam: PRESENT: conjunctiva pale, EOMI. ABSENT: nystagmus, periorbital swelling, scleral icterus Mouth exam: PRESENT: moist, neck supple, tongue midline Neck exam: ABSENT: carotid bruit, JVD, lymphadenopathy, thyromegaly, tracheal deviation, tracheostomy Respiratory exam: PRESENT: decreased breath sounds - Bibasilar, rales - Basilar , rhonchi, symmetrical, unlabored. ABSENT: retraction, stridor, tachypnea, wheezes Cardiovascular exam: PRESENT: RRR, +S1, +S2 Pulses: PRESENT: normal radial pulses GI/Abdominal exam: PRESENT: other - Status post surgery stable Extremities exam: PRESENT: full ROM. ABSENT: calf tenderness, clubbing, joint swelling, tenderness, +1 edema, +2 edema Musculoskeletal exam: PRESENT: ambulatory, full ROM. ABSENT: deformity, dislocation Neurological exam: PRESENT: alert, awake Psychiatric exam: PRESENT: normal mood Skin exam: PRESENT: dry, warm Results Laboratory Results: 01/30/18 06:00 01/27/18 05:30 01/30/18 06:00 WBC 14.2 H RBC 2.72 L Hgb 8.7 L Hct 25.8 L MCV 95 MCH 32.1 MCHC 33.7 RDW 12.8 Plt Count 200 Impressions: Abdomen/Pelvis CT 01/18/18 20:42 IMPRESSION: Findings suspicious for moderate grade mid small bowel obstruction in level of the proximal to mid ileum. This likely due to adhesions. No abscess. Small Bowel X-Ray 01/19/18 07:00 IMPRESSION: Persistent dilated distal small bowel loops. By 6 hours and 15 minutes, contrast had not yet reached the colon. Plan for KUB in the morning. Results discussed with Dr. Whitmore KUB X-Ray 01/20/18 00:00 IMPRESSION: Residual loops of contrast dilated small bowel within the central abdomen and pelvis suggestive of mid/distal small bowel obstructive process. No contrast within the colon. Chest X-Ray 01/30/18 00:00 IMPRESSION: Bilateral pleural effusions. Infiltrate in the middle lobe. 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 She has very low protein as well as a very low albumin suggesting compromised oncotic pressure. Suggest the following 1 adding extra protein to her diet, 2 push patient for incentive spirometry every other hour while awake,3 Unasyn 3 g every 6h which can be switched over to Augmentin 825/125 p.o. twice daily when patient is discharged home. Reluctant to add a diuretic to accelerate the resolution of her bilateral effusions. She is not coughing up any phlegm no obvious respiratory distress. Not be unreasonable to send her home on supplemental oxygen which may be required for another 3-6 weeks
[2018-01-30] MEDS: AMPICILLIN SODIUM/SULBACTAM NA 3 GM in NORMAL SALINE 100 ML IV SCH ×2 (17:17→21:11)
[2018-01-30 17:41] LABS: APPEARANCE,URINE SLIGHTLY-CLOUDY; BILIRUBIN,URINE NEGATIVE (NEGATIVE); COLOR,URINE YELLOW; GLUCOSE, URINE NEGATIVE (NEGATIVE); KETONES,URINE NEGATIVE (NEGATIVE); LEUKOCYTE ESTERASE,URINE SMALL (NEGATIVE); NITRITE,URINE NEGATIVE (NEGATIVE); PROTEIN,URINE 100 mg/dL (NEGATIVE); URINE SPECIFIC GRAVITY 1.017
[2018-01-31] MEDS: ACETAMINOPHEN SOLN 325 MG/10.15 ML UDCUP NG PRN (01:51)
[2018-01-31] MEDS: AMPICILLIN SODIUM/SULBACTAM NA 3 GM in NORMAL SALINE 100 ML IV SCH ×2 (02:04→09:39)
[2018-01-31] MEDS: IBUPROFEN 800 MG TABLET PO SCH ×2 (09:39→11:53)
[2018-01-31] MEDS: FAMOTIDINE INJ/PF 20 MG/2 ML SDV IV SCH (09:39)
--- NOTE | 2018-01-31 14:06 | PDOC PROGRESS REPORT ---
Subjective Progress Note for:: 01/31/18 Subjective:: comfortable, flatus and bowel movements present Reason For Visit: PARTIAL SMALL BOWEL OBSTRUCTION DUE TO ADHESIONS Physical Exam Vital Signs: Temp Pulse Resp BP Pulse Ox 97.4 F 113 H 16 130/52 H 98 01/31/18 11:01 01/31/18 11:01 01/31/18 11:01 01/31/18 11:01 01/31/18 11:01 Intake & Output 01/30/18 01/31/18 02/01/18 06:59 06:59 06:59 Intake Total 320 702 100 Output Total 500 Balance 320 202 100 Weight 49.3 kg 49 kg General appearance: PRESENT: no acute distress Respiratory exam: PRESENT: clear to auscultation chester Cardiovascular exam: PRESENT: RRR GI/Abdominal exam: PRESENT: normal bowel sounds, soft, other - wound C/D/I; Results Laboratory Results: 01/30/18 06:00 01/27/18 05:30 01/30/18 17:20 Urine Color YELLOW Urine Appearance SLIGHTLY-CLOUDY Urine pH 5.0 Ur Specific Red[place] 1.017 Urine Protein 100 H Urine Glucose (UA) NEGATIVE Urine Ketones NEGATIVE Urine Blood NEGATIVE Urine Nitrite NEGATIVE Ur Leukocyte Esterase SMALL H Urine WBC (Auto) 40 Urine RBC (Auto) 3 Impressions: Abdomen/Pelvis CT 01/18/18 20:42 IMPRESSION: Findings suspicious for moderate grade mid small bowel obstruction in level of the proximal to mid ileum. This likely due to adhesions. No abscess. Small Bowel X-Ray 01/19/18 07:00 IMPRESSION: Persistent dilated distal small bowel loops. By 6 hours and 15 minutes, contrast had not yet reached the colon. Plan for KUB in the morning. Results discussed with Dr. Whitmore KUB X-Ray 01/20/18 00:00 IMPRESSION: Residual loops of contrast dilated small bowel within the central abdomen and pelvis suggestive of mid/distal small bowel obstructive process. No contrast within the colon. Chest X-Ray 01/30/18 00:00 IMPRESSION: Bilateral pleural effusions. Infiltrate in the middle lobe. Assessment & Plan - Diagnosis (1) Small bowel obstruction Is this a current diagnosis for this admission?: Yes - Plan Summary Plan Summary: A/ POD #11 after laparotomy, bowel resection VSS, AF Comfortable, flatus and bowel movements present Abdomen soft P/ Home today Resume home meds Use oxygen as prescribed Regular diet Tylenol and or Advil as needed for pain Shower only x 2 weeks, then can bathe No wound care needed resume activities as tolerated including going up/down the stairs and driving no lifting > 10 pounds x 3 months no straining or core exercises x 3 months F/u with [facility]on[facility] in 2 weeks
[2018-01-31 15:18] VITALS: BP 131/51
--- NOTE | 2018-02-01 11:41 | DISCHARGE SUMMARY E ---
Discharge Summary NAME: BECKIE HERNANDEZ : 01/20/1936 AGE: 81Y ADMITTED: 01/18/2018 DISCHARGED: 01/31/2018 FINAL DIAGNOSIS: 1. MECHANICAL SMALL BOWEL OBSTRUCTION. 2. BILATERAL PNEUMONIA. 3. HYPERCHOLESTEROLEMIA. PROCEDURE: On January 20, 2018, the patient underwent open laparotomy and small bowel resection with lysis of adhesions. COMPLICATIONS: None. HOSPITAL COURSE: The patient is an 81-year-old female who presented to the hospital with abdominal pain, distention, obstipation. Found to have a mechanical small bowel obstruction on CAT scan. The patient was seen by Surgery on January 20, 2018. Patient underwent laparotomy and lysis of adhesions. The procedure was well tolerated. Patient also had an ileosectomy. Complications, there were none. The procedure was well tolerated. Patient was transferred to the floor. She remained n.p.o. on IV fluids and antibiotics until bowel function returned. The fluids were then slowly discontinued. However, during the hospital course, the patient developed the need of oxygen and bilateral pneumonia. She was treated with IV Unasyn first and evaluated by the coffee taster, Dr. Davis, and she was considered to be stable enough to be discharged to home on oral antibiotics and oxygen due to her low oxygenation on room air. DISCHARGE ORDERS: Patient discharged to home on January 31, 2018. Followup in the Surgery Clinic with the [facility] in 2 weeks. Shower only. No bath until 2 weeks. Regular diet. Activity as tolerated including driving and going up and down the stairs. No wound care needed. Resume her home medications. She was given Tylenol p.r.n. and/or Aleve for pain, Augmentin 875 mg p.o. b.i.d. for 7 days for her pneumonia. She was prescribed oxygen via nasal cannula at home to give her saturation more than 92% to be continued until her resting O2 saturation is more than 92%. She was given a regular diet. DICTATING PHYSICIAN: CHEIKH MERCEDES M.D. [id number] PHY#: [id number] ID: [id number] JOB#: [id number] ACCT: [id number] cc:CHEIKH MERCEDES M.D. E[facility] [employer], > [facility]
== END 2018-01-31 16:17 | disposition home health service (06) | DRG 329 ==
LOC: ER 18:53 → EH 22:48 → 4N 01-19 00:07 → ICU 01-21 00:34 → 4N 01-26 20:30
PROVIDERS: ADMIT Surgery; ATTEND Surgery
PROC: 0DB80ZZ Excision of Small Intestine, Open Approach (ICD-10-PCS; 2018-01-20)
PROC: 02HV33Z Insertion of Infusion Device into Superior Vena Cava, Percutaneous Approach (ICD-10-PCS; principal; 2018-01-21)
PROC: 5A1945Z Respiratory Ventilation, 24-96 Consecutive Hours (ICD-10-PCS; 2018-01-21)
PROC: 0HQ4XZZ Repair Neck Skin, External Approach (ICD-10-PCS; 2018-01-23)
DX: K56.691 Other complete intestinal obstruction (principal); E43 Unspecified severe protein-calorie malnutrition; A41.9 Sepsis, unspecified organism; J96.90 Respiratory failure, unspecified, unspecified whether with hypoxia or hypercapnia; Z68.1 Body mass index [BMI] 19.9 or less, adult; T85.638A Leakage of other specified internal prosthetic devices, implants and grafts, initial encounter; E78.5 Hyperlipidemia, unspecified; I48.0 Paroxysmal atrial fibrillation; E83.42 Hypomagnesemia; E87.6 Hypokalemia; F17.210 Nicotine dependence, cigarettes, uncomplicated
CPT/HCPCS: 00790; 36415; 36600; 71045; 71046; 74018; 74177; 74250; 80048; 80053; 81001; 82803; 82962; 83690; 83735; 84100; 85025; 85027; 87040; 87070; 87086; 87205; 87493; 88307; 93005; 93010; 93306; 94002; 94003; 94660; 94799; 96374; 96375; 96376; 99285; C1751; G8978-GP; G8979-GP; J0295; J0330; J0610; J1170; J1885; J1940; J2250; J2270; J2370; J2405; J2543; J2704; J3010; J3475; J3480; J3490; J7030; J7040; J7060; S0028

== ENCOUNTER 2019-04-09 22:25 | Emergency (ER) | payer MEDICARE, OTHER ==
[2019-04-10 01:04] LABS: ABSOLUTE LYMPHOCYTES (AUTO) 0.9 10^3/uL (0.5-4.7); ABSOLUTE MONOCYTES (AUTO) 0.5 10^3/uL (0.1-1.4); ABSOLUTE NEUT (AUTO) 13.7 10^3/uL (1.7-8.2); BASOPHILS % (AUTO) 0.3 % (0-2); EOSINOPHILS % (AUTO) 0.1 % (0-6); HEMATOCRIT 41.7 % (36.0-47.0); HEMOGLOBIN 13.9 g/dL (12.0-15.5); MEAN CORPUSCULAR HEMOGLOBIN 31.6 pg (27.0-33.4); MEAN CORPUSCULAR HGB CONC 33.3 g/dL (32.0-36.0); MEAN CORPUSCULAR VOLUME 95 fl (80-97); MONOCYTES % (AUTO) 3.1 % (3-13); PLATELET COUNT 118 10^3/uL (150-450); RED BLOOD COUNT 4.41 10^6/uL (3.72-5.28); SEGMENTED NEUTROPHILS % (AUTO) 90.5 % (42-78); TOTAL CELLS COUNTED % (AUTO) 100 %; WHITE BLOOD COUNT 15.2 10^3/uL (4.0-10.5)
[2019-04-10 01:29] LABS: APPEARANCE,URINE CLEAR; BILIRUBIN,URINE NEGATIVE (NEGATIVE); COLOR,URINE YELLOW; GLUCOSE, URINE NEGATIVE (NEGATIVE); KETONES,URINE NEGATIVE (NEGATIVE); LEUKOCYTE ESTERASE,URINE SMALL (NEGATIVE); NITRITE,URINE NEGATIVE (NEGATIVE); PROTEIN,URINE 100 mg/dL (NEGATIVE); URINE SPECIFIC GRAVITY 1.017; UROBILINOGEN,URINE NEGATIVE mg/dL (<2.0)
[2019-04-10 01:53] LABS: ALBUMIN 3.9 g/dL (3.5-5.0); ALKALINE PHOSPHATASE 88 U/L (38-126); ANION GAP 9 (5-19); ASPARTATE AMINO TRANSFERASE 133 U/L (14-36); BILIRUBIN,DIRECT 0.2 mg/dL (0.0-0.4); BILIRUBIN,TOTAL 0.7 mg/dL (0.2-1.3); BLOOD UREA NITROGEN 23 mg/dL (7-20); CALCIUM 9.9 mg/dL (8.4-10.2); CARBON DIOXIDE 30 mmol/L (22-30); CHLORIDE 97 mmol/L (98-107); GLUCOSE 93 mg/dL (75-110); POTASSIUM 4.4 mmol/L (3.6-5.0); TOTAL PROTEIN 7.1 g/dL (6.3-8.2)
[2019-04-10] MEDS ORDERED: MORPHINE SULFATE 10 MG/ML INJ IV ONE (04:23)
[2019-04-10] MEDS ORDERED: NORMAL SALINE 500 ML IV ONE (04:24)
[2019-04-10] MEDS ORDERED: ONDANSETRON HCL INJ/PF 4 MG/2 ML SDV IV ONE (04:24)
--- NOTE | 2019-04-10 04:26 | ER Document Report ---
ED GI/ - General TRAVEL OUTSIDE OF THE [place] IN LAST 30 DAYS: No - Related Data Home Medications: tylenol, vitamin, citracal, baby aspirin, ambien, zocor <FIDELIA GARCIA - Last Filed: 04/10/19 08:19> <ANEESH ESPINOZA Zain - Last Filed: 04/10/19 13:29> - General Chief Complaint: Flank Pain Stated Complaint: RIGHT SIDE PAIN Time Seen by Provider: 04/10/19 04:16 Primary Care Provider: LORI WHITE PA-C [Primary Care Provider] - Follow up as needed Notes: Patient is an 84-year-old female that comes into the emergency department for chief complaint of lower abdominal pain that started earlier in the evening. Pain started on the right and now has progressed to the left as well. She reports some nausea but denies vomiting. She had a normal bowel movement earlier today. She denies flank pain, chest pain, fever, or any other complaints. Past medical history includes CAD with stents, COPD, cholecystectomy, partial hysterectomy, small bowel obstruction with partial resection in 2018. She lives at home with her son who is at bedside. (FIDELIA GARCIA) - Related Data Allergies/Adverse Reactions: No Known Allergies Allergy (Verified 10/14/17 05:05) Past Medical History - General Information source: Patient, Relative - Social History Smoking Status: Current Every Day Smoker Chew tobacco use (# tins/day): No Frequency of alcohol use: None Drug Abuse: None Lives with: Family Family History: Reviewed & Not Pertinent Patient has suicidal ideation: No Patient has homicidal ideation: No - Past Medical History Cardiac Medical History: Reports: Hx Coronary Artery Disease, Hx Hypercholesterolemia Pulmonary Medical History: Reports: Hx COPD Renal/ Medical History: Denies: Hx Peritoneal Dialysis Past Surgical History: Reports: Hx Bowel Surgery - Partial small bowel resection in 2018, Hx Cholecystectomy - laparoscopic about 20 years ago, Hx Hysterectomy - Immunizations Immunizations up to date: Yes Hx Diphtheria, Pertussis, Tetanus Vaccination: Yes Hx Pneumococcal Vaccination: 06/12/17 <FIDELIA GARCIA - Last Filed: 04/10/19 08:19> Review of Systems - Review of Systems Constitutional: No symptoms reported EENT: No symptoms reported Cardiovascular: No symptoms reported Respiratory: No symptoms reported Gastrointestinal: See HPI Genitourinary: No symptoms reported Female Genitourinary: No symptoms reported Musculoskeletal: No symptoms reported Skin: No symptoms reported Hematologic/Lymphatic: No symptoms reported Neurological/Psychological: No symptoms reported <FIDELIA GARCIA - Last Filed: 04/10/19 08:19> Physical Exam <FIDELIA GARCIA - Last Filed: 04/10/19 08:19> - Vital signs Vitals: Temp Pulse Resp BP Pulse Ox 98.1 F 116 H 18 129/73 H 94 04/09/19 22:52 04/09/19 22:52 04/09/19 22:52 04/09/19 22:52 04/09/19 22:52 - Notes Notes: GENERAL: Alert, interacts well. HEAD: Normocephalic, atraumatic. EYES: Pupils equal, round, and reactive to light. Extraocular movements intact. ENT: Oral mucosa very dry, tongue midline. Oropharynx unremarkable. Airway patent. NECK: Full range of motion. Supple. Trachea midline. LUNGS: Decreased bilaterally, no wheezes, rales, or rhonchi. No respiratory distress. Occasional mild cough. HEART: Regular rate and rhythm. No murmur ABDOMEN: Bilateral lower abdominal tenderness with wincing but no severe distention, rigidity, or guarding. Bowel sounds are present GENITOURINARY: Deferred EXTREMITIES: Moves all 4 extremities spontaneously. No edema, normal radial and dorsalis pedis pulses bilaterally. No cyanosis. BACK: no cervical, thoracic, lumbar midline tenderness. No saddle anesthesia, normal distal neurovascular exam. Moves all extremities in full range of motion. NEUROLOGICAL: Alert and oriented x3. Normal speech. Cranial nerves II through XII grossly intact. PSYCH: Normal affect, normal mood. SKIN: Warm, dry, normal turgor. No rashes or lesions noted. (FIDELIA GARCIA) Course - Laboratory Result Diagrams: 04/10/19 00:50 04/10/19 00:50 <FIDELIA GARCIA - Last Filed: 04/10/19 08:19> - Laboratory Result Diagrams: 04/10/19 00:50 04/10/19 00:50 <ANEESH ESPINOZA - Last Filed: 04/10/19 13:29> - Re-evaluation Re-evalutation: Patient has tenderness generally in the lower abdomen but no severe guarding. She is talkative and well-appearing otherwise. She is mildly tachycardic. CBC shows leukocytosis at 15,000 with elevation of neutrophils but no bandemia. Chemistry nonspecific. Urinalysis shows just a few white blood cells and was cultured. CAT scan will be performed to rule out acute emergent/surgical abdomen. On reevaluation after IV fluids, pain medication, nausea medication patient is asymptomatic. 04/10/19 06:51 I have spoken with Dr. Judd radiologist and with Dr. Mallory general surgeon about patient's CAT scan. It is uncertain if this is scar tissue that is enhancing from previous partial small bowel resection by Dr. Pritchett in 2018, new developing mass, or ileus in the small bowel. Dr. Mallory recommends oral contrast and rescan. I discussed this with patient and son, they are in full agreement with this plan. 04/10/19 08:05 Report given to Khadijah Espinoza PA-C at bedside pending remaining CT results. Patient was sleeping and easily aroused. (FIDELIA GARCIA) 04/10/19 10:[address] results back. Called Dr. Mallory who is currently in a procedure. Will call back once available. 04/10/19 10:[address] Mallory who states there is nothing to be done from a surgical standpoint. Recommends working up leukocytosis further. UA shows mild leuk esterase. Reviewed chart which shows decreased lung sounds on exam. CXR ordered. 04/10/19 13:22 CXR shows no pneumonia. 04/10/19 13:[address] Vigil, attending, who agrees with plan of care. Reexamined pt - abd soft, nontender, no guarding, no rebound. Pt states no pain. Discussed results and plan of care with pt. Strict return precautions given with close follow up with her surgeon and pcp. Pt voices understanding and agrees with plan of care. (ANEESH ESPINOZA) - Vital Signs Vital signs: Temp Pulse Resp BP Pulse Ox 97.7 F 78 18 110/57 L 94 04/10/19 12:58 04/10/19 12:58 04/10/19 06:00 04/10/19 12:58 04/10/19 12:58 - Laboratory Laboratory results interpreted by me: 04/10/19 04/10/19 04/10/19 00:50 00:50 01:05 WBC 15.2 H Plt Count 118 L Lymph % (Auto) 6.0 L Absolute Neuts (auto) 13.7 H Seg Neutrophils % 90.5 H Sodium 136.2 L Chloride 97 L BUN 23 H AST 133 H Urine Protein 100 H Ur Leukocyte Esterase SMALL H Discharge <FIDELIA GARCIA - Last Filed: 04/10/19 08:19> <ANEESH ESPINOZA - Last Filed: 04/10/19 13:29> - Discharge Clinical Impression: Lower abdominal pain Leukocytosis Qualifiers: Leukocytosis type: unspecified Qualified Code(s): D72.829 - Elevated white blood cell count, unspecified Condition: Stable Disposition: HOME, SELF-CARE Additional Instructions: Your repeat CT scan did not show an obstruction. Your chest x-ray did not show pneumonia. Please follow-up with your primary care doctor in 2 to 3 days. Please follow-up with the surgeon who did your surgery in 3 to 5 days. Return immediately to ER if you start having any worsening symptoms, including worsening pain, nausea/vomiting, diarrhea/constipation, fever, urinary symptoms, chest pain, shortness of breath, or any other symptoms that are concerning to you. Referrals: LORI WHITE PA-C [Primary Care Provider] - Follow up in 3-5 days CHIKIS PRITCHETT MD [ACTIVE STAFF] - Follow up in 3-5 days
--- NOTE | 2019-04-10 06:41 | RADIOLOGY REPORT (SQ) ---
EXAM: CT abdomen and pelvis with IV contrast CLINICAL DATA: 84-year-old female with lower abdominal pain and leukocytosis, status post small bowel resection on 01/21/2018 TECHNICAL DATA: Axial CT imaging of the abdomen and pelvis was performed following the administration of intravenous contrast.. Sagittal and coronal reconstructed images were then performed. The CT study is performed according to ALARA (as low as reasonably achievable) or ALARA/IMAGE GENTLY, with automatic adjustment of mA and/or kV according to patient size. Performed on: 04/10/2019 at 5:22 AM. Comparison: Prior CT abdomen and pelvis performed on 01/18/2018 FINDINGS: Lung bases: There is mild parenchymal opacification in the posterior right lower lobe and lateral aspect of the right lower lobe which may be due to fibrosis, atelectasis or potentially inflammatory changes. The lung bases are otherwise clear. There are no pleural effusions. Liver:The liver is normal in size and configuration. No focal hepatic abnormalities are identified. There is decreased attenuation of the liver commonly due to fatty infiltration. Spleen:The spleen is normal is size, configuration and attenuation. Gallbladder and bile duct: The gallbladder is surgically absent. There is no biliary ductal dilatation. Pancreas: The pancreas is grossly normal in size and configuration. Adrenal Glands:The adrenal glands are normal in size and configuration. Kidneys:The kidneys are normal in size and configuration. There is no evidence of hydronephrosis. There is no evidence of nephrolithiasis. There are multiple small bilateral renal cortical cysts. There is a stable calcification associated with the right kidney which is likely vascular in nature. Stomach:The stomach is grossly normal. There is no definite hiatal hernia. Bowel:The bowel gas pattern is non specific and non obstructive. There are multiple fluid-filled small bowel loops in the pelvis. There is an amorphous area of increased attenuation within the right hemipelvis possibly related to postsurgical changes (series 3, image 53 through 55). An enhancing mass or enhancing scar tissue is not excluded. This demonstrates increasing enhancement on the delayed images obtained through the pelvis. Appendix: The appendix is not identified on this examination. Free air:There is no evidence of free air. Free fluid: There is no evidence of free fluid. Vasculature: The aorta is normal in caliber and contour. There are heavy atherosclerotic calcifications along the abdominal aorta and major branch vessels. The inferior vena cava is grossly unremarkable. Lymphadenopathy: No pathologic lymphadenopathy is identified. Bladder: The bladder is well distended and smooth in contour. Reproductive: The uterus is surgically absent. Bones: No acute osseous abnormalities are identified. There are chronic degenerative changes of the lumbar spine. Soft tissues: No acute soft tissue abnormalities are identified. There is a coarse calcification within the soft tissues of the right buttocks. IMPRESSION: 1. New mild areas of parenchymal opacification in the posterior right lower lobe and lateral aspect of the right lower lobe which may be due to fibrosis, atelectasis or potentially inflammatory changes. 2. Postsurgical changes of the small bowel. There is an amorphous enhancing structure in the right hemipelvis within a dilated fluid-filled small bowel loop which may represent postsurgical scar tissue. An intraluminal enhancing mass is considered less likely. A small bowel ileus is not excluded. 3. Decreased attenuation of the liver commonly due to fatty infiltration. 4. Remote cholecystectomy and hysterectomy. 5. Degenerative changes of the skeletal and vascular structures. 6. Multiple small bilateral renal cortical cysts. These findings were discussed with PAMELA Robledo on 04/10/2019 at 5:34 AM central time.
--- NOTE | 2019-04-10 08:56 | RADIOLOGY REPORT (SQ) ---
EXAM DESCRIPTION: CT ABD/PELVIS ORAL ONLY COMPLETED DATE/TIME: 04/10/2019 8:37 am REASON FOR STUDY: eval abdominal pain, hx bowel surgery COMPARISON: 04/10/2019 earlier. TECHNIQUE: CT scan of the abdomen and pelvis performed with oral contrast and no intravenous contras t. Images reviewed with lung, soft tissue, and bone windows. Reconstructed coronal and sagittal MPR i mages reviewed. All images stored on PACS. All CT scanners at this facility use dose modulation, iterative reconstruction, and/or weight based d osing when appropriate to reduce radiation dose to as low as reasonably achievable (ALARA). [facility]: Dose Right [facility]: CareDose [facility]: Dose Right [facility]: Teradose 4D [facility]: Smart Bacterioscan RADIATION DOSE: CT Rad equipment meets quality standard of care and radiation dose reduction techniq ues were employed. CTDIvol: 4.8 mGy. DLP: 206 mGy-cm.mGy. LIMITATIONS: None. FINDINGS: BOWEL AND PERITONEAL CAVITY: Oral contrast variably distends throughout loops of bowel. D ilute contrast seen to the level of the proximal colon. No evidence of fixed mechanical obstruction. Previously noted intraluminal density within a dilated viscus in the right lower quadrant is once a gain demonstrated (image 48/74 and adjacent slices). Possibly inspissated dense stool. Postoperativ e scar is also in the differential. As previously noted, mass is felt to be less likely. This does not appear to be obstructing lesion. No evidence of free air or free fluid. OTHER: Contrast in nondilated renal collecting systems. Unremarkable contrast filled bladder. IV co ntrasted study from earlier better defines the solid organs and vessels. Please refer to that examin ation for further findings. IMPRESSION: 1. Bowel findings as previously. Density within a dilated viscus in the right hemipelvis likely lies and proximal colon and may represent inspissated stool. Other possibilities as previously discussed . 2. No fixed high-grade mechanical bowel obstruction, oral contrast reaches the colon. TECHNICAL DOCUMENTATION: JOB ID: [id number] Quality ID # [id number]: Final reports with documentation of one or more dose reduction techniques (e.g., Au tomated exposure control, adjustment of the mA and/or kV according to patient size, use of iterative reconstruction technique) 2010 [employer]- All Rights Reserved Reading location - IP/workstation name: [email or web address]
--- NOTE | 2019-04-10 11:52 | RADIOLOGY REPORT (SQ) ---
EXAM DESCRIPTION: CHEST 2 VIEWS COMPLETED DATE/TIME: 04/10/2019 11:43 am REASON FOR STUDY: leukocytosis, decreased breath sounds COMPARISON: 01/30/2018. TECHNIQUE: Frontal and lateral radiographic views of the chest acquired. NUMBER OF VIEWS: Two view. LIMITATIONS: None. FINDINGS: LUNGS AND PLEURA: Chronic marked hyperinflation, COPD. Areas of basilar and apical scarri ng. No suggestion of pneumonia. No suspicious opacities. No evidence of congestive failure. MEDIASTINUM AND HILAR STRUCTURES: No masses or contour abnormalities. HEART AND VASCULAR STRUCTURES: Heart normal size. No evidence for failure. BONES: Osteopenic. HARDWARE: None in the chest. OTHER: No other significant finding. IMPRESSION: COPD. No acute or suspicious radiographic abnormality. TECHNICAL DOCUMENTATION: JOB ID: [id number] [employer]- All Rights Reserved Reading location - IP/workstation name: [email or web address]
[2019-04-10 14:35] VITALS: BP 100/50
== END 2019-04-10 14:35 | disposition home or self-care (01) ==
LOC: ER 22:25
DX: R10.30 Lower abdominal pain, unspecified (principal); R10.819 Abdominal tenderness, unspecified site; D72.828 Other elevated white blood cell count; R11.0 Nausea; R05 Cough; R00.0 Tachycardia, unspecified; J44.9 Chronic obstructive pulmonary disease, unspecified; I25.10 Atherosclerotic heart disease of native coronary artery without angina pectoris; Z95.5 Presence of coronary angioplasty implant and graft; Z90.49 Acquired absence of other specified parts of digestive tract; Z90.710 Acquired absence of both cervix and uterus; Z87.19 Personal history of other diseases of the digestive system
CPT/HCPCS: 99284; 96361; 96374; 96375; 36415; 87086; 83690; 85025; 80053; 81001; 71046; 74176; 74177; J2270; J2405; J7040

== ENCOUNTER 2019-09-27 08:01 | Emergency (ER) | payer MEDICARE, OTHER ==
[2019-09-27 08:35] LABS: ABSOLUTE BASOPHILS # (AUTO) 0.1 10^3/uL (0.0-0.2); ABSOLUTE EOSINOPHILS # (AUTO) 0.1 10^3/uL (0.0-0.6); ABSOLUTE LYMPHOCYTES (AUTO) 1.5 10^3/uL (0.5-4.7); ABSOLUTE MONOCYTES (AUTO) 0.4 10^3/uL (0.1-1.4); ABSOLUTE NEUT (AUTO) 5.4 10^3/uL (1.7-8.2); BASOPHILS % (AUTO) 0.7 % (0-2); EOSINOPHILS % (AUTO) 1.9 % (0-6); HEMATOCRIT 39.2 % (36.0-47.0); HEMOGLOBIN 13.4 g/dL (12.0-15.5); LYMPHOCYTES % (AUTO) 20.3 % (13-45); MEAN CORPUSCULAR HEMOGLOBIN 32.4 pg (27.0-33.4); MEAN CORPUSCULAR HGB CONC 34.1 g/dL (32.0-36.0); MEAN CORPUSCULAR VOLUME 95 fl (80-97); MONOCYTES % (AUTO) 5.7 % (3-13); PLATELET COUNT 180 10^3/uL (150-450); RED BLOOD COUNT 4.12 10^6/uL (3.72-5.28); SEGMENTED NEUTROPHILS % (AUTO) 71.4 % (42-78); TOTAL CELLS COUNTED % (AUTO) 100 %; WHITE BLOOD COUNT 7.6 10^3/uL (4.0-10.5)
[2019-09-27 08:41] LABS: INTERNATIONAL RATION (INR) 0.92; PROTHROMBIN TIME 12.4 SEC (11.4-15.4)
[2019-09-27 09:49] LABS: ALBUMIN 3.8 g/dL (3.5-5.0); ALKALINE PHOSPHATASE 65 U/L (38-126); ANION GAP 6 (5-19); ASPARTATE AMINO TRANSFERASE 41 U/L (14-36); BILIRUBIN,TOTAL 0.4 mg/dL (0.2-1.3); BLOOD UREA NITROGEN 21 mg/dL (7-20); CALCIUM 9.7 mg/dL (8.4-10.2); CARBON DIOXIDE 30 mmol/L (22-30); CHLORIDE 95 mmol/L (98-107); CREATINE KINASE 56 U/L (30-135); GLUCOSE 89 mg/dL (75-110); POTASSIUM 4.2 mmol/L (3.6-5.0); TOTAL PROTEIN 6.8 g/dL (6.3-8.2)
--- NOTE | 2019-09-27 09:56 | RADIOLOGY REPORT (SQ) ---
EXAM DESCRIPTION: CHEST SINGLE VIEW IMAGES COMPLETED DATE/TIME: 09/27/2019 8:45 am REASON FOR STUDY: left sided lower rib cage pain. COMPARISON: 04/10/2019 NUMBER OF VIEWS: 2 frontal radiographs of the chest were obtained. TECHNIQUE: Single frontal radiographic view of the chest acquired. LIMITATIONS: None. FINDINGS: LUNGS AND PLEURA: No opacities, masses or pneumothorax. No pleural effusion. Attenuated bl ood vessels and flattened john-diaphragms. MEDIASTINUM AND HILAR STRUCTURES: No masses. Contour normal. HEART AND VASCULAR STRUCTURES: Heart normal in size. Normal vasculature. BONES: No acute findings. HARDWARE: None in the chest. OTHER: No other significant finding. IMPRESSION: Stable radiographic appearance of the chest demonstrating marked emphysematous changes. No findings to correlate with the patient's reported left-sided rib pain. TECHNICAL DOCUMENTATION: JOB ID: [id number] 2010 [employer]- All Rights Reserved Reading location - IP/workstation name: [email or web address]
[2019-09-27 10:01] LABS: CREATINE KINASE MB 1.95 ng/mL (<4.55); NT PRO BNP 385 pg/mL (<450)
[2019-09-27 10:03] LABS: TROPONIN I < 0.012 ng/mL
--- NOTE | 2019-09-27 11:58 | EKG REPORT ---
SEVERITY:- ABNORMAL ECG - SINUS RHYTHM FIRST DEGREE AV BLOCK RIGHT AND LEFT ATRIAL ABNORMALITY CONSIDER LEFT VENTRICULAR HYPERTROPHY : Confirmed by: Jayson Phoenix MD 27-Sep-2019 11:57:08
--- NOTE | 2019-09-27 14:06 | ER Document Report ---
Entered by PATRICK GRANADOS SCRIBE 09/27/19 0832 Acting as scribe for:STEPHON SHOEMAKER MD ED General - General Stated Complaint: CHEST PAIN Time Seen by Provider: 09/27/19 08:10 Primary Care Provider: LORI WHITE PA-C [Primary Care Provider] - Follow up as needed Information source: Patient Notes: This 84 year old female patient presents to the emergency department today with pain in her left side. Patient states she feels like the pain was in her left ribcage and began this morning x4 hours prior to arrival. Patient states the pain woke her up this morning and lasted for x2 hours, with the pain constant and increasing. Patient she took x4 baby aspirin prior to arrival and there is no longer any pain. Patient states she has a cough but it is normal and produces white sputum. Denies any fever. TRAVEL OUTSIDE OF THE [place] IN LAST 30 DAYS: No - Related Data Allergies/Adverse Reactions: No Known Allergies Allergy (Verified 09/27/19 09:48) Past Medical History - General Information source: Patient - Social History Smoking Status: Current Every Day Smoker Cigarette use (# per day): Yes Family History: Reviewed & Not Pertinent - Past Medical History Cardiac Medical History: Reports: Hx Coronary Artery Disease, Hx Hy percholesterolemia Pulmonary Medical History: Reports: Hx COPD Past Surgical History: Reports: Hx Bowel Surgery - Partial small bowel resection in 2018, Hx Cholecystectomy - laparoscopic about 20 years ago, Hx Hysterectomy, Other - Biopsy of Cervix - Immunizations Immunizations up to date: Yes Hx Diphtheria, Pertussis, Tetanus Vaccination: Yes Hx Pneumococcal Vaccination: 06/12/17 Review of Systems - Review of Systems Constitutional: See HPI. denies: Fever EENT: No symptoms reported Cardiovascular: No symptoms reported Respiratory: See HPI, Cough, Sputum Gastrointestinal: No symptoms reported Genitourinary: No symptoms reported Female Genitourinary: No symptoms reported Musculoskeletal: See HPI Skin: No symptoms reported Hematologic/Lymphatic: No symptoms reported Neurological/Psychological: No symptoms reported -: Yes All other systems reviewed and negative Physical Exam - Vital signs Vitals: Resp 26 H 09/27/19 08:06 - General General appearance: Appears well, Alert - HEENT Head: Normocephalic, Atraumatic Eyes: Normal Pupils: PERRL Neck: Normal, Supple - Respiratory Respiratory status: No respiratory distress Chest status: Nontender Chest palpation: Normal Notes: Bilateral diminished breath sounds in bases. Harsh upper airway sounds from trachea. - Cardiovascular Rhythm: Regular Heart sounds: Normal auscultation, S1 appreciated, S2 appreciated Murmur: No - Abdominal Inspection: Normal - Soft Distension: No distension Bowel sounds: Normal Tenderness: Nontender - Back Back: Normal. No: CVA tenderness - Extremities General upper extremity: Normal inspection. No: Edema General lower extremity: Normal inspection. No: Edema - Neurological Neuro grossly intact: Yes Cognition: Normal Orientation: AAOx4 - Psychological Associated symptoms: Normal affect, Normal mood - Skin Skin Temperature: Warm Skin Moisture: Dry Skin Color: Normal Course - Re-evaluation Re-evalutation: 09/27/19 09:46 Patient resting comfortably not showing any signs of distress. 09/27/19 13:59 Patient has been chest pain-free the entire ED visit. 09/27/19 14:02 Discussed with patient about being admitted to the hospital inasmuch as she has known coronary artery disease with 2 stents she reports placed 35 years ago. Patient continues to smoke cigarettes and therefore is a high risk patient for coronary artery disease and angina. Patient states that she absolutely is not going to be admitted to the hospital and wants to be discharged and willing to sign out AGAINST MEDICAL ADVICE. I instructed patient that she is going to be discharging her at her wish, and explained to her to return to the emergency department if she has further problems continue her usual medications as she is taken and to call EMS if she has further left-sided chest pain. Patient understands the risk that she takes in leaving the hospital without being admitted for further evaluation of her left-sided chest pain. - Vital Signs Vital signs: Temp Pulse Resp BP Pulse Ox 97.4 F 92 16 133/73 H 92 09/27/19 08:36 09/27/19 08:36 09/27/19 12:01 09/27/19 12:01 09/27/19 12:01 - Laboratory Result Diagrams: 09/27/19 08:22 09/27/19 09:23 Laboratory results interpreted by me: 09/27/19 09:23 Sodium 130.6 L Chloride 95 L BUN 21 H AST 41 H Patient laboratories have been essentially within normal limits patient has a low sodium of 130 chloride of 95 BUN 21 AST of 41 the other abnormalities. Patient's troponin has been flat at this less than 0.012 on both tests. - Diagnostic Test Radiology reviewed: Image reviewed, Reports reviewed Radiology results interpreted by me: 09/27/19 09:48 Chest x-ray shows large volume lung without any acute process no rib fractures no infiltrate noted normal heart size. - EKG Interpretation by Me Additional EKG results interpreted by me: 09/27/19 09:49 Twelve-lead EKG shows normal sinus rhythm rate of 89 first-degree AV block. Right atrial abnormality and left ventricular hypertrophy by voltage criteria. 09/27/19 14:02 Twelve-lead EKG shows normal sinus rhythm rate of 89 first-degree AV block right atrial abnormality and left ventricular hypertrophy. Discharge - Discharge Clinical Impression: Left-sided chest wall pain, COPD (chronic obstructive pulmonary disease) Condition: Stable Disposition: HOME, SELF-CARE Instructions: Chest Pain of Unclear Cause ([facility]), Chest Wall Pain ([facility]), Aspirin (Cardiac) ([facility]) Additional Instructions: Chest Wall Pain Your chest pain has been diagnosed as coming from the chest wall. This is often caused by straining the muscles or joints in the chest during physical activity, direct trauma, coughing, or vigorous vomiting. Persons with arthritis are especially prone to this type of pain, due to inflammation of the cartilage joints near the breast bone. Occasionally, no cause can be found. Rest from strenuous physical activity. This kind of chest pain is usually made worse by movement of the chest. Depending on the symptoms, we may prescribe medicine for pain, muscle relaxation, and antiinflammatory effects. If the pain is new, and seems to be due to muscle strain, cold packs can help. Otherwise, apply gentle warmth to the painful area for 15 minutes every hour or two. You should contact the doctor immediately if things change. Further evaluation is needed if you develop a fever or cough, if the nature of the pain changes, or if you become short of breath. I recommended to patient that she takes Tylenol as needed for left-sided chest wall pain. Again explained to patient to return to the emergency department if she has further pain that is unresolved. Referrals: LORI WHITE PA-C [Primary Care Provider] - Follow up as needed I personally performed the services described in the documentation, reviewed and edited the documentation which was dictated to the scribe in my presence, and it accurately records my words and actions.
[2019-09-27 14:29] VITALS: BP 130/70
== END 2019-09-27 14:29 | disposition home or self-care (01) ==
LOC: ER 08:01
DX: J44.9 Chronic obstructive pulmonary disease, unspecified (principal); R07.89 Other chest pain; R05 Cough; F17.210 Nicotine dependence, cigarettes, uncomplicated; I25.10 Atherosclerotic heart disease of native coronary artery without angina pectoris
CPT/HCPCS: 36415; 71045; 80053; 82550; 82553; 83880; 84484; 85025; 85610; 85730; 93005; 93010; 99285

== ENCOUNTER 2020-03-20 06:34 | Emergency (ER) | payer MEDICARE, OTHER ==
--- NOTE | 2020-03-20 07:45 | RADIOLOGY REPORT (SQ) ---
EXAM DESCRIPTION: XR CHEST 1 VIEW COMPLETED DATE/TME: 03/20/2020 07:24 CLINICAL HISTORY: 85 years Female, CHEST PAIN COMPARISON: 09/27/19 NUMBER OF VIEWS/TECHNIQUE: 1/AP FINDINGS: Increased emphysematous lung volume, clear parenchyma, normal cardiac silhouette, and intact bony thorax.Atherosclerotic vascular disease. IMPRESSION: No acute cardiopulmonary findings.
[2020-03-20 07:46] LABS: ABSOLUTE BASOPHILS # (AUTO) 0.1 10^3/uL (0.0-0.2); ABSOLUTE EOSINOPHILS # (AUTO) 0.1 10^3/uL (0.0-0.6); ABSOLUTE LYMPHOCYTES (AUTO) 0.8 10^3/uL (0.5-4.7); ABSOLUTE MONOCYTES (AUTO) 0.9 10^3/uL (0.1-1.4); ABSOLUTE NEUT (AUTO) 9.4 10^3/uL (1.7-8.2); BASOPHILS % (AUTO) 0.6 % (0-2); EOSINOPHILS % (AUTO) 1.2 % (0-6); HEMATOCRIT 36.7 % (36.0-47.0); HEMOGLOBIN 12.1 g/dL (12.0-15.5); LYMPHOCYTES % (AUTO) 7.5 % (13-45); MEAN CORPUSCULAR HEMOGLOBIN 31.3 pg (27.0-33.4); MEAN CORPUSCULAR HGB CONC 32.9 g/dL (32.0-36.0); MEAN CORPUSCULAR VOLUME 95 fl (80-97); MONOCYTES % (AUTO) 7.6 % (3-13); PLATELET COUNT 153 10^3/uL (150-450); RED BLOOD COUNT 3.87 10^6/uL (3.72-5.28); RED CELL DISTRIBUTION WIDTH 13.1 % (11.5-14.0); SEGMENTED NEUTROPHILS % (AUTO) 83.1 % (42-78); TOTAL CELLS COUNTED % (AUTO) 100 %; WHITE BLOOD COUNT 11.3 10^3/uL (4.0-10.5)
[2020-03-20] MEDS ORDERED: NORMAL SALINE 500 ML IV ONE (08:01)
[2020-03-20 08:05] LABS: ALBUMIN 3.6 g/dL (3.5-5.0); ALKALINE PHOSPHATASE 94 U/L (38-126); ANION GAP 9 (5-19); ASPARTATE AMINO TRANSFERASE 32 U/L (14-36); BILIRUBIN,DIRECT 0.2 mg/dL (0.0-0.4); BILIRUBIN,TOTAL 0.6 mg/dL (0.2-1.3); BLOOD UREA NITROGEN 19 mg/dL (7-20); CALCIUM 9.3 mg/dL (8.4-10.2); CARBON DIOXIDE 29 mmol/L (22-30); CHLORIDE 96 mmol/L (98-107); CREATINE KINASE 31 U/L (30-135); GLUCOSE 104 mg/dL (75-110); POTASSIUM 4.6 mmol/L (3.6-5.0); TOTAL PROTEIN 6.5 g/dL (6.3-8.2)
--- NOTE | 2020-03-20 08:10 | EKG REPORT ---
SEVERITY:- ABNORMAL ECG - SINUS TACHYCARDIA RIGHT ATRIAL ABNORMALITY : Confirmed by: Alvina Turner 20-Mar-2020 08:09:32
[2020-03-20 08:16] LABS: CREATINE KINASE MB 1.28 ng/mL (<4.55)
[2020-03-20 08:22] LABS: TROPONIN I < 0.012 ng/mL
[2020-03-20 09:35] VITALS: BP 121/64
[2020-03-20] MEDS ORDERED: ACETAMINOPHEN 325 MG TABLET PO ONE (11:04)
--- NOTE | 2020-03-20 12:52 | ER Document Report ---
Entered by POWER CELESTE SCRIBE 03/20/20 0814 Acting as scribe for:STEPHON SHOEMAKER MD ED General - General Chief Complaint: Chest Pain Stated Complaint: CHEST PAIN Time Seen by Provider: 03/20/20 07:37 Primary Care Provider: LORI WHITE PA-C [Primary Care Provider] - Follow up as needed Mode of Arrival: Medic Information source: Patient, Emergency Med Personnel Notes: This 85 year old female patient with a history of COPD and continued tobacco use presents to the ED today via EMS for evaluation after waking up feeling like "someone was squeezing my heart." Patient denies any chest discomfort last night. She does report a chronic productive cough with milky white sputum for the past x1.5 months, but denies any shortness of breath, fever, chills, loss of taste/smell, runny nose, or leg swelling. She received x4 baby Aspirin and x2 SL NTG via EMS which provided relief. Denies any chest pain at this time. Patient reportedly had O2 sats of 84% on RA which improved to 94% on 4L supplemental O2 via NC. She is a DNR. TRAVEL OUTSIDE OF THE [place] IN LAST 30 DAYS: No - Related Data Allergies/Adverse Reactions: No Known Allergies Allergy (Verified 09/27/19 09:48) Home Medications: Albuterol Past Medical History - General Information source: Patient, [facility] - Social History Smoking Status: Current Every Day Smoker Chew tobacco use (# tins/day): No Smoking Education Provided: No Drug Abuse: None Family History: Reviewed & Not Pertinent - Past Medical History Cardiac Medical History: Reports: Hx Coronary Artery Disease, Hx Hypercholesterolemia Pulmonary Medical History: Reports: Hx COPD Past Surgical History: Reports: Hx Bowel Surgery - Partial small bowel resection in 2018, Hx Cardiac Surgery - stents, Hx Cholecystectomy - laparoscopic about 20 years ago, Hx Hysterectomy, Other - Biopsy of Cervix - Immunizations Immunizations up to date: Yes Hx Diphtheria, Pertussis, Tetanus Vaccination: Yes Hx Pneumococcal Vaccination: 06/12/17 Review of Systems - Review of Systems Constitutional: See HPI. denies: Chills, Fever EENT: See HPI. denies: Nose discharge Cardiovascular: See HPI, Chest pain Respiratory: See HPI. denies: Short of breath Gastrointestinal: No symptoms reported Genitourinary: No symptoms reported Female Genitourinary: No symptoms reported Musculoskeletal: See HPI. denies: Leg swelling Skin: No symptoms reported Hematologic/Lymphatic: No symptoms reported Neurological/Psychological: No symptoms reported -: Yes All other systems reviewed and negative Physical Exam - Vital signs Vitals: Pulse Ox 100 03/20/20 06:42 - General General appearance: Alert In distress: None - HEENT Head: Normocephalic, Atraumatic Eyes: Normal Pupils: PERRL - Respiratory Respiratory status: No respiratory distress, Other - 99-100% on 4L NC Breath sounds: Normal. No: Productive cough, Wheezing Chest palpation: Normal - Cardiovascular Rhythm: Regular Heart sounds: Normal auscultation Murmur: No Friction rub: No Gallop: None auscultated - Abdominal Inspection: Normal Distension: No distension Bowel sounds: Normal Tenderness: Nontender - Abdomen soft Organomegaly: No organomegaly - Back Back: Normal, Nontender - Extremities General upper extremity: Normal inspection General lower extremity: Normal inspection. No: Edema - Neurological Neuro grossly intact: Yes Orientation: AAOx4 [place] Coma Scale Eye Opening: Spontaneous [place] Coma Scale Verbal: Oriented [place] Coma Scale Motor: Obeys Commands [place] Coma Scale Total: 15 - Psychological Associated symptoms: Normal affect, Normal mood - Skin Skin Temperature: Warm Skin Moisture: Dry Skin Color: Normal Course - Re-evaluation Re-evalutation: 03/20/20 12:29 Patient resting comfortably not showing any signs of distress. Patient's oxygen was discontinued and patient maintains with sats between 94 to 97%. 03/20/20 12:48 Patient desatted down to 88% once on room air for 10 minutes. Patient had to be replaced on 4 L nasal O2. Case discussed with the hospitalist team and patient's man admitted to the hospital for COPD exacerbation in a patient of interest for COVID-19. - Vital Signs Vital signs: Temp Pulse Resp BP Pulse Ox 22 H 121/64 97 03/20/20 09:01 03/20/20 09:01 03/20/20 09:01 03/20/20 12:30 Vital signs stable. - Laboratory Result Diagrams: 03/20/20 07:33 03/20/20 07:33 Laboratory results interpreted by me: 03/20/20 03/20/20 07:33 07:33 WBC 11.3 H Lymph % (Auto) 7.5 L Absolute Neuts (auto) 9.4 H Seg Neutrophils % 83.1 H Sodium 133.7 L Chloride 96 L 03/20/20 12:30 12 07:33 03/20/20 07:33 MCV 95 fl (80-97) 03/20/20 07:33 MCH 31.3 pg (27.0-33.4) 03/20/20 07:33 MCHC 32.9 g/dL (32.0-36.0) 03/20/20 07:33 RDW 13.1 % (11.5-14.0) 03/20/20 07:33 Seg Neutrophils % 83.1 % (42-78) H 03/20/20 07:33 Chloride 96 mmol/L (98-107) L 03/20/20 07:33 Carbon Dioxide 29 mmol/L (22-30) 03/20/20 07:33 Anion Gap 9 (5-19) 03/20/20 07:33 Est GFR ( Amer) > 60 (>60) 03/20/20 07:33 Glucose 104 mg/dL (75-110) 03/20/20 07:33 Calcium 9.3 mg/dL (8.4-10.2) 03/20/20 07:33 Total Bilirubin 0.6 mg/dL (0.2-1.3) 03/20/20 07:33 AST 32 U/L (14-36) 03/20/20 07:33 Alkaline Phosphatase 94 U/L (38-126) 03/20/20 07:33 Total Protein 6.5 g/dL (6.3-8.2) 03/20/20 07:33 Albumin 3.6 g/dL (3.5-5.0) 03/20/20 07:33 03/20/20 03/20/20 03/20/20 07:33 07:33 11:20 Creatine Kinase 31 CK-MB (CK-2) 1.28 Troponin I < 0.012 < 0.012 Patient's laboratory results are within normal range repeat troponin again within the normal range. - EKG Interpretation by Me Additional EKG results interpreted by me: 03/20/20 12:49 Twelve-lead EKG shows sinus tachycardia rate of 101 normal axis normal prolonged first-degree AV block QRS no acute process QT interval within normal range right atrial abnormality noted no acute STEMI. Discharge - Discharge Clinical Impression: COPD exacerbation, Oxygen dependent, Suspected COVID-19 virus infection Condition: Stable Disposition: ADMITTED INPATIENT Admitting Provider: Michel Unit Admitted: Medical Floor Additional Instructions: Chronic Obstructive Lung Disease You have chronic obstructive lung disease (COPD). The symptoms come from emphysema (damage to small airways, with trapping of air in large sacks in the lung) and chronic bronchitis (repeated infection and damage to larger airways). The cause is almost always cigarette smoking, although dust exposure, asthma, and infections contribute. You should avoid fumes, dust, and smoke (especially tobacco smoke). Your condition will flare from time to time. There is no cure, but the symptoms can be treated. Bronchodilators (asthma medicine) are often helpful. Antibiotics help when infection is present. When shortness of breath is severe, we may prescribe cortisone medication. If medicine doesn't help enough, we can arrange for you to have an oxygen tank at home. Notify your doctor at once if sputum becomes thick, foul, or bloody, if you develop a fever or chest pain, or if your shortness of breath worsens. Referrals: LORI WHITE PA-C [Primary Care Provider] - Follow up as needed I personally performed the services described in the documentation, reviewed and edited the documentation which was dictated to the scribe in my presence, and it accurately records my words and actions.
== END 2020-03-20 19:55 | disposition home or self-care (01) ==
LOC: ER 06:34 → EH 13:04 → UNDOADMIN 13:04 → EH 19:54
DX: J44.1 Chronic obstructive pulmonary disease with (acute) exacerbation (principal); Z99.81 Dependence on supplemental oxygen; Z20.828 Contact with and (suspected) exposure to other viral communicable diseases; R05 Cough; Z79.82 Long term (current) use of aspirin; F17.200 Nicotine dependence, unspecified, uncomplicated; I25.10 Atherosclerotic heart disease of native coronary artery without angina pectoris
CPT/HCPCS: 93005; 99285; 96360; 96361; 36415; 82553; 82550; 85025; 0241U ×4; 80053; 84484; 71045; 93010; A9270; J7040; C9803

== ENCOUNTER 2020-03-20 21:04 | Inpatient (IN) | payer MEDICARE, OTHER ==
[2020-03-20] MEDS ORDERED: IPRATROPIUM/ALBUTEROL 0.5-2.5 MG/3 ML AMPUL NEB ONE (21:58)
[2020-03-20 22:23] LABS: ABSOLUTE LYMPHOCYTES (AUTO) 0.6 10^3/uL (0.5-4.7); ABSOLUTE MONOCYTES (AUTO) 0.5 10^3/uL (0.1-1.4); BASOPHILS % (AUTO) 0.4 % (0-2); EOSINOPHILS % (AUTO) 0.1 % (0-6); HEMATOCRIT 35.2 % (36.0-47.0); HEMOGLOBIN 11.8 g/dL (12.0-15.5); LYMPHOCYTES % (AUTO) 7.7 % (13-45); MEAN CORPUSCULAR HEMOGLOBIN 31.8 pg (27.0-33.4); MEAN CORPUSCULAR HGB CONC 33.6 g/dL (32.0-36.0); MEAN CORPUSCULAR VOLUME 95 fl (80-97); MONOCYTES % (AUTO) 5.9 % (3-13); PLATELET COUNT 156 10^3/uL (150-450); RED BLOOD COUNT 3.71 10^6/uL (3.72-5.28); RED CELL DISTRIBUTION WIDTH 12.9 % (11.5-14.0); SEGMENTED NEUTROPHILS % (AUTO) 85.9 % (42-78); TOTAL CELLS COUNTED % (AUTO) 100 %; VENOUS BLOOD BASE EXCESS 1.1 mmol/L; VENOUS BLOOD HCO3 27.9 mmol/L (20-32); VENOUS BLOOD PCO2 55.1 mmHg (35-63); VENOUS BLOOD PH 7.32 (7.30-7.42); WHITE BLOOD COUNT 8.2 10^3/uL (4.0-10.5)
[2020-03-20] MEDS ORDERED: ACETAMINOPHEN 325 MG TABLET PO ONE (22:34)
--- NOTE | 2020-03-20 22:52 | RADIOLOGY REPORT (SQ) ---
EXAM DESCRIPTION: CHEST SINGLE VIEW CLINICAL HISTORY: 85 years Female, COPD SOB decreased breath RLL COMPARISON: Portable view of the chest obtained earlier in the day at 7:19 AM FINDINGS: Lungs: Lungs are hyperinflated. There has been development of subtle parenchymal opacification in the right infrahilar region. Septal lines are now seen in the right lung base. Bilateral apical pleural parenchymal scarring is stable. No pneumothorax. No definitive pleural effusions. Mediastinum: Heart size is small. Vascular calcifications are seen in the thoracic aorta. Bones: Osseous structures are unchanged. IMPRESSION: 1. Marked hyperinflation with thoracic configuration consistent with COPD. 2. Interval development of subtle parenchymal opacification in the right infrahilar region. This is concerning for development of focal pneumonia.
[2020-03-20 23:46] LABS: ALBUMIN 3.1 g/dL (3.5-5.0); ALKALINE PHOSPHATASE 97 U/L (38-126); ANION GAP 7 (5-19); ASPARTATE AMINO TRANSFERASE 29 U/L (14-36); BILIRUBIN,DIRECT 0.3 mg/dL (0.0-0.4); BILIRUBIN,TOTAL 0.7 mg/dL (0.2-1.3); BLOOD UREA NITROGEN 19 mg/dL (7-20); CARBON DIOXIDE 27 mmol/L (22-30); CHLORIDE 96 mmol/L (98-107); GLUCOSE 85 mg/dL (75-110); POTASSIUM 4.2 mmol/L (3.6-5.0)
--- NOTE | 2020-03-21 00:40 | RADIOLOGY REPORT (SQ) ---
CT ANGIOGRAM CHEST WITH IV CONTRAST: 03/20/2020 11:34 PM [employer]IST HISTORY: 85-year old patient with dyspnea, elevated d-dimer level. TECHNIQUE: Postcontrast CT through the chest was performed per protocol for CT angiography. 3D Multiplanar reformations were performed at the workstation. Reconstructed sagittal and coronal images were also obtained through the chest. This exam was performed according to our departmental dose-optimization program, which includes automated exposure control, adjustment of the mA and/or KV according to the patient's size and/or use of iterative reconstruction technique. COMPARISON: None available FINDINGS: The heart size is within normal limits of size. No large pericardial effusion is seen. Coronary calcifications are seen. No significant mediastinal, supraclavicular, or axillary lymphadenopathy is seen. The thoracic aorta is within normal limits of size. No filling defects are seen within the pulmonary arteries to suggest a pulmonary artery embolism. The main pulmonary artery is within normal limits in size. The thyroid gland is unremarkable. The central tracheobronchial tree is patent. There are filling defects seen within the distal segmental bronchi, most pronounced within the lower lobes and on the right side. The visualized esophagus is patulous. There are airspace opacities seen at the right lung base. There is scarring noted at the apices. There is moderate to severe centrilobular and paraseptal emphysematous change present. There are reticulonodular airspace opacities at the right middle lobe and lingula which may represent evidence of aspiration or early infection. Trace bilateral pleural fluid is seen. There is no evidence of a pneumothorax. The bones demonstrate no suspicious lytic or blastic lesion. The visualized portions of the upper abdomen appear grossly unremarkable. Bilateral renal hypodensities are seen, most likely representing cysts. IMPRESSION: There are airspace opacities at the right lung base consistent with infection. There are also bilateral reticulonodular airspace opacities which may reflect aspiration or infection. There are filling defects within the segmental lower lobe bronchi distant with aspiration or debris from infection. No filling defect is seen to suggest a pulmonary artery embolism. Moderate centrilobular and paraseptal emphysematous changes are present.
[2020-03-21] MEDS ORDERED: IPRATROPIUM/ALBUTEROL 0.5-2.5 MG/3 ML AMPUL NEB PRN (01:16)
--- NOTE | 2020-03-21 01:24 | PDOC H&P ---
History of Present Illness Admission Date/PCP: LORI WHITE PA-C Patient complains of: shortness of breath History of Present Illness: BECKIE HERNANDEZ is a 85 year old female with a history of COPD who presents with 1 day duration of sudden worsening of shortness of breath. She states that she has been having cough productive of scanty whitish sputum. Patient was evaluated this morning at this ED after she presented with similar symptoms, she was requiring about 4 L of intranasal oxygen and process was initiated for admission for possible COPD exacerbation but the patient refused to be admitted and she was sent home with intranasal oxygen. Shortly after arrival home patient's breathing worsened and she called EMS and was brought in by the ED. This time she is agreeable to admitted. She denies any fever, chills, chest pain, palpitation, dizziness or any recent sick contact history. Past Medical History Cardiac Medical History: Reports: Coronary Artery Disease, Hyperlipidema Pulmonary Medical History: Reports: Chronic Obstructive Pulmonary Disease (COPD) Past Surgical History Past Surgical History: Reports: Cholecystectomy - laparoscopic about 20 years ago, Hysterectomy, Other - Biopsy of Cervix Social History Information Source: Patient Lives with: Family Smoking Status: Current Every Day Smoker Frequency of Alcohol Use: Rare Hx Recreational Drug Use: No Drugs: None Hx Prescription Drug Abuse: No - Advance Directive Resuscitation Status: Do Not Resuscitate Family History Family History: Reviewed & Not Pertinent Parental Family History Reviewed: Yes Children Family History Reviewed: Yes Sibling(s) Family History Reviewed.: Yes Medication/Allergy Home Medications: Aspirin [Lo-Dose Aspirin EC] 81 mg PO DAILY 01/19/18 Multivitamin [Daily Multiple Vitamin] 1 each PO DAILY 01/19/18 Simvastatin [Zocor 10 mg Tablet] 10 mg PO QPM 01/19/18 Zolpidem Tartrate [Ambien 5 mg Tablet] 5 mg PO QHS MDD 10 MG 03/20/20 Allergies/Adverse Reactions: No Known Allergies Allergy (Verified 09/27/19 09:48) Review of Systems Constitutional: ABSENT: chills, fever(s), headache(s), weight gain, weight loss Eyes: ABSENT: visual disturbances Ears: ABSENT: hearing changes Cardiovascular: PRESENT: as per HPI Respiratory: PRESENT: as per HPI Gastrointestinal: ABSENT: abdominal pain, constipation, diarrhea, hematemesis, hematochezia, nausea, vomiting Genitourinary: ABSENT: dysuria, hematuria Musculoskeletal: ABSENT: joint swelling Integumentary: ABSENT: rash, wounds Neurological: ABSENT: abnormal gait, abnormal speech, confusion, dizziness, focal weakness, syncope Psychiatric: ABSENT: anxiety, depression, homidical ideation, suicidal ideation Endocrine: ABSENT: cold intolerance, heat intolerance, polydipsia, polyuria Hematologic/Lymphatic: ABSENT: easy bleeding, easy bruising Physical Exam Vital Signs: Temp Pulse Resp BP Pulse Ox 98.9 F 127 H 34 H 127/55 H 97 03/20/20 21:30 03/20/20 21:30 03/21/20 00:18 03/21/20 00:18 03/21/20 00:18 Intake & Output 03/19/20 03/20/20 03/21/20 06:59 06:59 06:59 Weight 54 kg Additional comments: GENERAL APPEARANCE: Alert and oriented x3, in mild respiratory distress, using accessory respiratory muscles HEENT: Normocephalic and atraumatic. No scleral icterus. Moist oral mucosa NECK: Supple. No lymphadenopathy or tenderness. No JVD CHEST: Symmetric. Nontender to palpation. LUNGS: Tachypneic, clear with good air entry bilaterally. Diffuse wheezing bilaterally HEART: Regular rate and rhythm with normal S1 and S2. No murmurs, gallops, or rubs. ABDOMEN: Flat, soft, active bowel sounds, no direct or rebound tenderness. No organomegaly detected. EXTREMITIES: No cyanosis, clubbing, or edema. MUSCULOSKELETAL: No deformity, atrophy or swelling noted PSYCHIATRIC: Recent and remote memory is intact. Appropriate mood and affect. SKIN: Warm, dry, and well perfused. No lesions or rashes are noted. NEUROLOGIC: No focal sensory or motor deficits are noted. Results Laboratory Results: 03/20/20 21:41 03/20/20 23:16 03/20/20 03/20/20 03/20/20 21:41 21:41 21:41 WBC 8.2 RBC 3.71 L Hgb 11.8 L Hct 35.2 L MCV 95 MCH 31.8 MCHC 33.6 RDW 12.9 Plt Count 156 Seg Neutrophils % 85.9 H VBG pH 7.32 VBG pCO2 55.1 VBG HCO3 27.9 VBG Base Excess 1.1 Sodium Cancelled Potassium Cancelled Chloride Cancelled Carbon Dioxide Cancelled Anion Gap Cancelled BUN Cancelled Creatinine Cancelled Est GFR ( Amer) Cancelled Est GFR (Non-Af Amer) Cancelled Glucose Cancelled Calcium Cancelled Total Bilirubin Cancelled AST Cancelled Alkaline Phosphatase Cancelled Total Protein Cancelled Albumin Cancelled 03/20/20 23:16 WBC RBC Hgb Hct MCV MCH MCHC RDW Plt Count Seg Neutrophils % VBG pH VBG pCO2 VBG HCO3 VBG Base Excess Sodium 129.9 L Potassium 4.2 Chloride 96 L Carbon Dioxide 27 Anion Gap 7 BUN 19 Creatinine 0.66 Est GFR ( Amer) > 60 Est GFR (Non-Af Amer) Glucose 85 Calcium 9.0 Total Bilirubin 0.7 AST 29 Alkaline Phosphatase 97 Total Protein 6.0 L Albumin 3.1 L 03/20/20 21:41 Troponin I 0.019 Impressions: Chest X-Ray 03/20/20 21:59 IMPRESSION: 1. Marked hyperinflation with thoracic configuration consistent with COPD. 2. Interval development of subtle parenchymal opacification in the right infrahilar region. This is concerning for development of focal pneumonia. Chest/Abdomen CTA 03/20/20 23:13 IMPRESSION: There are airspace opacities at the right lung base consistent with infection. There are also bilateral reticulonodular airspace opacities which may reflect aspiration or infection. There are filling defects within the segmental lower lobe bronchi distant with aspiration or debris from infection. No filling defect is seen to suggest a pulmonary artery embolism. Moderate centrilobular and paraseptal emphysematous changes are present. Assessment and Plan - Diagnosis (1) Acute respiratory failure with hypoxia Is this a current diagnosis for this admission?: Yes Plan: Presented with shortness of breath Currently requiring 4 L intranasal oxygen with a target of 88 to 92% saturation CTA chest showed no PE Continue intranasal oxygen Started on Solu-Medrol Breathing treatment with DuoNeb Placed her on antibiotic with Levaquin Closely monitor respiratory parameters (2) COPD exacerbation Is this a current diagnosis for this admission?: Yes Plan: Presented with shortness of breath, cough, sputum production Continue managing acute exacerbation of COPD as stated above (3) Chest pain Is this a current diagnosis for this admission?: Yes Plan: Patient has reported chest pain on her initial presentation earlier this morning but it has resolved now 2 sets of cardiac enzymes have been negative Continue statin and aspirin - Time Time Spent with patient: 35 or more minutes Total Critical Time (Minutes): 40 Medications reviewed and adjusted accordingly: Yes Anticipated Discharge Disposition: Home, Self Care Anticipated Discharge Timeframe: within 72 hours - Inpatient Certification Based on my medical assessment, after consideration of the patient's comorbidities, presenting symptoms, or acuity I expect that the services needed warrant INPATIENT care.: Yes I certify that my determination is in accordance with my understanding of Medicare's requirements for reasonable and necessary INPATIENT services [42 CFR 412.3e].: Yes Medical Necessity: Need Close Monitoring Due to Risk of Patient Decompensation, Need For Continuous Telemetry Monitoring, Need for Nebulizer Therapy and Monitoring of Response, Risk of Complication if Not Cared For in Hospital Post Hospital Care: D/C or Transfer Summary
[2020-03-21] MEDS ORDERED: METHYLPREDNISOLONE INJ 40 MG/1 ML SDV IV ONE (01:30)
--- NOTE | 2020-03-21 01:49 | ER Document Report ---
ED General - General Chief Complaint: Breathing Difficulty Stated Complaint: RESPIRATORY DISTRESS Notes: 85-year-old female history of hyperlipidemia, COPD presents with shortness of breath and dry cough for the past 1 day. Patient says over the last 6 months her shortness of breath has been worsening gradually and then 1 day ago had woken up with severe shortness of breath and called EMS and was seen in this ED and was treated for COPD exacerbation and plans were to admit her but patient refused admission so patient was discharged AGAINST MEDICAL ADVICE and arrange for home oxygen which patient has been on since leaving the ED. At home patient felt too short of breath on the home oxygen and activated EMS. Patient denies chest pain to me although she had endorsed it on her previous visit. Patient denies any fever, productive cough, chest pain, lower extremity edema, DVT/PE/hypercoagulability history. Patient is a current smoker. TRAVEL OUTSIDE OF THE [place] IN LAST 30 DAYS: No - Related Data Allergies/Adverse Reactions: No Known Allergies Allergy (Verified 09/27/19 09:48) Past Medical History - General Information source: Patient, [facility] Records - Social History Smoking Status: Current Every Day Smoker Family History: Reviewed & Not Pertinent - Past Medical History Cardiac Medical History: Reports: Hx Coronary Artery Disease, Hx Hypercholesterolemia Pulmonary Medical History: Reports: Hx COPD Renal/ Medical History: Denies: Hx Peritoneal Dialysis Past Surgical History: Reports: Hx Bowel Surgery - Partial small bowel resection in 2018, Hx Cardiac Surgery - stents, Hx Cholecystectomy - laparoscopic about 20 years ago, Hx Hysterectomy, Other - Biopsy of Cervix - Immunizations Immunizations up to date: Yes Hx Diphtheria, Pertussis, Tetanus Vaccination: Yes Hx Pneumococcal Vaccination: 06/12/17 Review of Systems - Review of Systems Notes: REVIEW OF SYSTEMS: CONSTITUTIONAL : Denies fever, chills, or sweats. EENT: Denies recent cold/sinus symptoms, denies throat pain CARDIOVASCULAR: Denies chest pain, CINDY RESPIRATORY: +cough, + shortness of breath. GASTROINTESTINAL: Denies abdominal pain, nausea/vomiting. GENITOURINARY: Denies difficulty urinating, painful urination. FEMALE GENITOURINARY: Denies abnormal vaginal bleeding, vaginal discharge. MUSCULOSKELETAL: Denies neck pain, back pain. SKIN: Denies rash or skin lesions. HEMATOLOGIC : Denies easy bruising or bleeding. LYMPHATIC: Denies swollen, enlarged glands. NEUROLOGICAL: Denies headache, denies change in gait. PSYCHIATRIC: Denies anxiety or stress or depression. Physical Exam - Vital signs Vitals: Pulse Ox 97 03/20/20 21:08 - Notes Notes: PHYSICAL EXAMINATION: GENERAL: Mildly uncomfortable appearing but nontoxic elderly woman awake alert with nasal cannula in place in no acute distress HEAD: Atraumatic, normocephalic. EYES: Pupils equal round and appropriate constriction, sclera anicteric, conjunctiva are normal. ENT: nares patent, moist mucous membranes. NECK: Normal range of motion, supple without lymphadenopathy LUNGS: Tachypneic, no accessory muscle use, speaking in several word sentences, no tripoding, managing secretions, mildly decreased air movement bilaterally HEART: Tachycardic regular rhythm without murmurs ABDOMEN: Soft, nontender, no guarding, no masses, no CVAT EXTREMITIES: Normal range of motion, no pitting or edema. No cyanosis. NEUROLOGICAL: Awake, alert, conversing appropriately, moves all extremities spontaneously. PSYCH: Normal mood, normal affect. SKIN: Warm, Dry, normal turgor, no rashes or lesions noted. Course - Re-evaluation Re-evalutation: 03/21/20 01:46 Patient with bounce back after leaving AGAINST MEDICAL ADVICE for COPD exacerbation. On my exam patient tachycardic and and obtain D-dimer which was positive so obtained CTA which did not show any pulmonary embolism. Patient's troponins were negative on previous visit and her troponin was negative today without any signs of acute ischemia on EKG. Patient had negative Covid test during her prior visit. Patient is now willing to accept admission and today presented patient to who has accepted patient to the medical floor. Patient feels improved after medications given by EMS and no signs of current need for BiPAP or other airway intervention. The patient was evaluated during the global COVID-19 pandemic and that diagnosis was suspected/considered upon their initial presentation. Their evaluation, treatment and testing was consistent with current guidelines for patients who present with complaints or symptoms that may be related to COVID-19. - Vital Signs Vital signs: Temp Pulse Resp BP Pulse Ox 97.6 F 98 28 H 114/50 L 100 03/21/20 03:13 03/21/20 03:13 03/21/20 03:13 03/21/20 03:13 03/21/20 06:32 - Laboratory Result Diagrams: 03/20/20 21:41 03/20/20 23:16 Laboratory results interpreted by me: 03/20/20 03/20/20 03/20/20 21:41 21:41 23:16 RBC 3.71 L Hgb 11.8 L Hct 35.2 L Lymph % (Auto) 7.7 L Seg Neutrophils % 85.9 H D-Dimer 4.84 H Sodium 129.9 L Chloride 96 L Total Protein 6.0 L Albumin 3.1 L - EKG Interpretation by Me Additional EKG results interpreted by me: 03/21/20 08:43 Sinus tachycardia versus ectopic atrial tachycardia, regular rhythm, no significant ST elevations or depressions, no significant T wave abnormalities Discharge - Discharge Clinical Impression: COPD exacerbation, Hypoxia Disposition: ADMITTED INPATIENT [facility] Unit Admitted: Medical Floor
[2020-03-21] MEDS ORDERED: LEVOFLOXACIN 750 MG/D5W RTU 750 MG/150 ML RTUPB IV ONE (02:00)
[2020-03-21] MEDS: ACETAMINOPHEN 325 MG TABLET PO PRN ×3 (03:39→21:57)
[2020-03-21] MEDS ORDERED: ASPIRIN 81 MG TABLET, CHEWABLE PO SCH (10:00)
[2020-03-21] MEDS ORDERED: ENOXAPARIN SODIUM INJ 40 MG/0.4 ML DISP.SYRIN SUBCUT SCH (10:00)
[2020-03-21] MEDS: METHYLPREDNISOLONE INJ 40 MG/1 ML SDV IV SCH ×2 (10:03→21:57)
[2020-03-21] MEDS: FAMOTIDINE 20 MG TABLET PO SCH ×2 (10:03→22:05)
[2020-03-21 10:42] LABS: HEMATOCRIT 32.6 % (36.0-47.0); HEMOGLOBIN 10.8 g/dL (12.0-15.5); MEAN CORPUSCULAR HEMOGLOBIN 30.9 pg (27.0-33.4); MEAN CORPUSCULAR HGB CONC 33.1 g/dL (32.0-36.0); MEAN CORPUSCULAR VOLUME 94 fl (80-97); PLATELET COUNT 164 10^3/uL (150-450); RED BLOOD COUNT 3.48 10^6/uL (3.72-5.28); RED CELL DISTRIBUTION WIDTH 12.8 % (11.5-14.0)
[2020-03-21 10:59] LABS: WHITE BLOOD COUNT 16.5 10^3/uL (4.0-10.5)
[2020-03-21 11:09] LABS: ALKALINE PHOSPHATASE 75 U/L (38-126); ANION GAP 6 (5-19); ASPARTATE AMINO TRANSFERASE 30 U/L (14-36); BILIRUBIN,DIRECT 0.3 mg/dL (0.0-0.4); BILIRUBIN,TOTAL 0.5 mg/dL (0.2-1.3); BLOOD UREA NITROGEN 24 mg/dL (7-20); CALCIUM 8.9 mg/dL (8.4-10.2); CARBON DIOXIDE 28 mmol/L (22-30); CHLORIDE 95 mmol/L (98-107); GLUCOSE 111 mg/dL (75-110); POTASSIUM 4.8 mmol/L (3.6-5.0); TOTAL PROTEIN 5.7 g/dL (6.3-8.2)
[2020-03-21 11:18] LABS: ABSOLUTE LYMPHOCYTES# (MANUAL) 0.8 10^3/uL (0.5-4.7); ABSOLUTE MONOCYTES # (MANUAL) 0.7 10^3/uL (0.1-1.4); BASOPHILS % (MANUAL) 0 % (0-2); EOSINOPHILS % (MANUAL) 0 % (0-6); LYMPHOCYTES % (MANUAL) 5 % (13-45); METAMYELOCYTES % (MANUAL) 2 % (0-1); MONOCYTES % (MANUAL) 4 % (3-13); SEGMENTED NEUTROPHILS % (MAN) 72 % (42-78); TOTAL CELLS COUNTED 100
[2020-03-21 11:19] LABS: PLATELET COMMENT ADEQUATE; RBC MORPHOLOGY COMMENT NORMO-CYTIC/CHROMIC
[2020-03-21 11:20] LABS: BAND NEUTROPHILS % (MANUAL) 17 % (3-5)
[2020-03-21] MEDS ORDERED: NORMAL SALINE 1000 ML 1,000 ML IV PRN (11:26)
[2020-03-21] MEDS: NICOTINE 21 MG/24 HR PATCH.TD24 TD SCH (14:34)
[2020-03-21] MEDS: LIDOCAINE 5% (700 MG) TRANSDERMAL ADH..PATCH TP SCH (14:34)
[2020-03-21] MEDS: SIMVASTATIN 10 MG TABLET PO SCH (17:31)
--- NOTE | 2020-03-21 17:49 | EKG REPORT ---
SEVERITY:- ABNORMAL ECG - SINUS TACHYCARDIA PROBABLE LEFT ATRIAL ABNORMALITY PROBABLE LEFT VENTRICULAR HYPERTROPHY CONSIDER ANTERIOR INFARCT : Confirmed by: Alvina Turner 21-Mar-2020 17:49:14
--- NOTE | 2020-03-21 19:43 | PDOC PROGRESS REPORT ---
Subjective Date:: 03/21/20 Subjective:: BECKIE EHRNANDEZ is a 85 year old female with a history of COPD who presents wi th 1 day duration of sudden worsening of shortness of breath. She states that she has been having cough productive of scanty whitish sputum. Patient was evaluated this morning at this ED after she presented with similar symptoms, she was requiring about 4 L of intranasal oxygen and process was initiated for admission for possible COPD exacerbation but the patient refused to be admitted and she was sent home with intranasal oxygen. Shortly after arrival home patient's breathing worsened and she called EMS and was brought in by the ED. This time she is agreeable to admitted. She denies any fever, chills, chest pain, palpitation, dizziness or any recent sick contact history. D1 hospital stay 03/21/20. Patient was seen and examined at bedside. She is still requiring 4L of O2 via NC but reports that her breathing is a bit better now. Denies any chest pain. According to her she still continues to smoke about 1 1/2 pack per day. I extensively counseled her to stop smoking. Reason For Visit: COPD EXACERBATION, PNEUMONIA Physical Exam Vital Signs: Temp Pulse Resp BP Pulse Ox 98.0 F 100 37 H 121/70 98 03/21/20 16:00 03/21/20 16:00 03/21/20 16:00 03/21/20 16:00 03/21/20 16:00 Intake & Output 03/20/20 03/21/20 03/22/20 06:59 06:59 06:59 Intake Total 200 100 Balance 200 100 Weight 34.4 kg 34.4 kg General appearance: PRESENT: cooperative, mild distress, thin Head exam: PRESENT: atraumatic, normocephalic Eye exam: PRESENT: EOMI, PERRLA Mouth exam: PRESENT: moist Neck exam: PRESENT: full ROM Respiratory exam: PRESENT: decreased breath sounds, rhonchi, symmetrical. ABSENT: wheezes Cardiovascular exam: PRESENT: RRR, +S1, +S2 GI/Abdominal exam: PRESENT: normal bowel sounds, soft. ABSENT: rebound, tenderness Extremities exam: PRESENT: full ROM Musculoskeletal exam: PRESENT: full ROM Neurological exam: PRESENT: alert, awake, oriented to person, oriented to place, oriented to time, oriented to situation Psychiatric exam: PRESENT: normal mood Skin exam: PRESENT: normal color Results Laboratory Results: 03/21/20 10:30 03/21/20 10:30 03/20/20 03/20/20 03/20/20 21:41 21:41 21:41 WBC 8.2 RBC 3.71 L Hgb 11.8 L Hct 35.2 L MCV 95 MCH 31.8 MCHC 33.6 RDW 12.9 Plt Count 156 Seg Neutrophils % 85.9 H VBG pH 7.32 VBG pCO2 55.1 VBG HCO3 27.9 VBG Base Excess 1.1 Sodium Cancelled Potassium Cancelled Chloride Cancelled Carbon Dioxide Cancelled Anion Gap Cancelled BUN Cancelled Creatinine Cancelled Est GFR ( Amer) Cancelled Est GFR (Non-Af Amer) Cancelled Glucose Cancelled Calcium Cancelled Total Bilirubin Cancelled AST Cancelled Alkaline Phosphatase Cancelled Total Protein Cancelled Albumin Cancelled 03/20/20 03/21/20 03/21/20 23:16 10:30 10:30 WBC 16.5 H D RBC 3.48 L Hgb 10.8 L Hct 32.6 L MCV 94 MCH 30.9 MCHC 33.1 RDW 12.8 Plt Count 164 Seg Neutrophils % Not Reportable VBG pH VBG pCO2 VBG HCO3 VBG Base Excess Sodium 129.9 L 129.0 L Potassium 4.2 4.8 Chloride 96 L 95 L Carbon Dioxide 27 28 Anion Gap 7 6 BUN 19 24 H Creatinine 0.66 0.84 Est GFR ( Amer) > 60 > 60 Est GFR (Non-Af Amer) Glucose 85 111 H Calcium 9.0 8.9 Total Bilirubin 0.7 0.5 AST 29 30 Alkaline Phosphatase 97 75 Total Protein 6.0 L 5.7 L Albumin 3.1 L 3.0 L 03/20/20 21:41 Troponin I 0.019 Impressions: Chest X-Ray 03/20/20 21:59 IMPRESSION: 1. Marked hyperinflation with thoracic configuration consistent with COPD. 2. Interval development of subtle parenchymal opacification in the right infrahilar region. This is concerning for development of focal pneumonia. Chest/Abdomen CTA 03/20/20 23:13 IMPRESSION: There are airspace opacities at the right lung base consistent with infection. There are also bilateral reticulonodular airspace opacities which may reflect aspiration or infection. There are filling defects within the segmental lower lobe bronchi distant with aspiration or debris from infection. No filling defect is seen to suggest a pulmonary artery embolism. Moderate centrilobular and paraseptal emphysematous changes are present. Assessment and Plan - Diagnosis (1) Acute respiratory failure with hypoxia Is this a current diagnosis for this admission?: Yes Plan: Presented with shortness of breath due to COPD exacerbation Currently requiring 4 L intranasal oxygen with a target of 88 to 92% saturation CTA chest showed no PE Continue intranasal oxygen Started on Solu-Medrol Breathing treatment with DuoNeb Placed her on antibiotic with Levaquin Closely monitor respiratory parameters (2) COPD exacerbation Is this a current diagnosis for this admission?: Yes Plan: Presented with shortness of breath, cough, sputum production. Patient is a current smoker CXR Marked hyperinflation with thoracic configuration consistent with COPD. Interval development of subtle parenchymal opacification in the right infrahilar region which is concerning for development of focal pneumonia. -Continue O2 support to maintain sats between 88 to 92% -DuoNebs as needed -IV Solu-Medrol -Started on Trelegy - on levaquin fro COPD exacerbation - outpatient pulmonology follow up (3) COPD (chronic obstructive pulmonary disease) Qualifiers: COPD type: COPD with acute exacerbation Qualified Code(s): J44.1 - Chronic obstructive pulmonary disease with (acute) exacerbation Is this a current diagnosis for this admission?: Yes Plan: -Current everyday smoker diagnosed case of COPD -Was supposed to be on home oxygen but has stopped using it since she started smoking again -Unclear if she is on any inhalers at home -I have started her on Trelegy -She will need home O2 -smoking cessation counseling done (4) Chest pain Is this a current diagnosis for this admission?: Yes Plan: Patient has reported chest pain on her initial presentation earlier this morning but it has resolved now 2 sets of cardiac enzymes have been negative Continue statin and aspirin (5) Tobacco abuse Is this a current diagnosis for this admission?: Yes Plan: -Known COPD patient current smoker consuming 1 and half pack a day -I have placed her on nicotine patch -Sensitive smoking cessation counseling done - Time Time Spent with patient: 25-34 minutes Medications reviewed and adjusted accordingly: Yes Anticipated Discharge Disposition: Home, Self Care Anticipated Discharge Timeframe: TBD
[2020-03-21] MEDS: ZOLPIDEM TARTRATE 5 MG TABLET PO SCH (21:57)
[2020-03-21] MEDS: FLUTICASONE/UMECLIDIN/VILANTER 100-62.5-25 MCG/DOSE IH SCH (22:00)
[2020-03-21] MEDS ORDERED: LEVOFLOXACIN 750 MG/D5W RTU 750 MG/150 ML RTUPB IV SCH (22:00)
[2020-03-22 06:02] LABS: HEMATOCRIT 33.2 % (36.0-47.0); MEAN CORPUSCULAR HEMOGLOBIN 31.1 pg (27.0-33.4); MEAN CORPUSCULAR VOLUME 94 fl (80-97); PLATELET COUNT 172 10^3/uL (150-450); RED BLOOD COUNT 3.52 10^6/uL (3.72-5.28)
[2020-03-22 06:06] LABS: ANION GAP 10 (5-19); BLOOD UREA NITROGEN 31 mg/dL (7-20); CARBON DIOXIDE 25 mmol/L (22-30); CHLORIDE 94 mmol/L (98-107); GLUCOSE 83 mg/dL (75-110); POTASSIUM 4.6 mmol/L (3.6-5.0)
[2020-03-22] MEDS: ONDANSETRON HCL INJ/PF 4 MG/2 ML SDV IV PRN ×2 (06:20→15:54)
[2020-03-22 06:44] LABS: ABSOLUTE LYMPHOCYTES# (MANUAL) 0.9 10^3/uL (0.5-4.7); ABSOLUTE MONOCYTES # (MANUAL) 0.2 10^3/uL (0.1-1.4); BAND NEUTROPHILS % (MANUAL) 9 % (3-5); BASOPHILS % (MANUAL) 0 % (0-2); EOSINOPHILS % (MANUAL) 0 % (0-6); LYMPHOCYTES % (MANUAL) 4 % (13-45); METAMYELOCYTES % (MANUAL) 1 % (0-1); MONOCYTES % (MANUAL) 1 % (3-13); SEGMENTED NEUTROPHILS % (MAN) 85 % (42-78); TOTAL CELLS COUNTED 100
[2020-03-22 06:45] LABS: BURR CELLS SLIGHT; PLATELET COMMENT ADEQUATE; POIKILOCYTOSIS SLIGHT
[2020-03-22] MEDS ORDERED: NORMAL SALINE 1000 ML 1,000 ML IV ONE (09:17)
[2020-03-22] MEDS: FAMOTIDINE 20 MG TABLET PO SCH (10:38)
[2020-03-22] MEDS: ASPIRIN 81 MG TABLET, ENT COATED PO SCH (10:38)
[2020-03-22] MEDS: METHYLPREDNISOLONE INJ 40 MG/1 ML SDV IV SCH ×2 (10:38→21:56)
[2020-03-22] MEDS: ENOXAPARIN SODIUM INJ 30 MG/0.3 ML DISP.SYRIN SUBCUT SCH (10:38)
[2020-03-22] MEDS: NICOTINE 21 MG/24 HR PATCH.TD24 TD SCH (10:48)
[2020-03-22] MEDS: LIDOCAINE 5% (700 MG) TRANSDERMAL ADH..PATCH TP SCH (11:01)
[2020-03-22] MEDS: FLUTICASONE/UMECLIDIN/VILANTER 100-62.5-25 MCG/DOSE IH SCH (11:02)
[2020-03-22 13:32] LABS: PATH REVIEW PATHOLOGIST REVIEWED
[2020-03-22 14:00] LABS: ANION GAP 12 (5-19); BLOOD UREA NITROGEN 31 mg/dL (7-20); CALCIUM 8.6 mg/dL (8.4-10.2); CARBON DIOXIDE 23 mmol/L (22-30); CHLORIDE 96 mmol/L (98-107); POTASSIUM 4.8 mmol/L (3.6-5.0)
[2020-03-22 14:12] LABS: GLUCOSE 60 mg/dL (75-110)
[2020-03-22] MEDS: ACETAMINOPHEN 325 MG TABLET PO PRN (15:13)
[2020-03-22] MEDS: SIMVASTATIN 10 MG TABLET PO SCH (17:44)
--- NOTE | 2020-03-22 20:03 | PDOC PROGRESS REPORT ---
Subjective Date:: 03/22/20 Subjective:: BECKEI HERNANDEZ is a 85 year old female with a history of COPD who presents wi th 1 day duration of sudden worsening of shortness of breath. She states that she has been having cough productive of scanty whitish sputum. Patient was evaluated this morning at this ED after she presented with similar symptoms, she was requiring about 4 L of intranasal oxygen and process was initiated for admission for possible COPD exacerbation but the patient refused to be admitted and she was sent home with intranasal oxygen. Shortly after arrival home patient's breathing worsened and she called EMS and was brought in by the ED. This time she is agreeable to admitted. She denies any fever, chills, chest pain, palpitation, dizziness or any recent sick contact history. D1 hospital stay 03/21/20. Patient was seen and examined at bedside. She is still requiring 4L of O2 via NC but reports that her breathing is a bit better now. Denies any chest pain. According to her she still continues to smoke about 1 1/2 pack per day. I extensively counseled her to stop smoking. D2 hospital stay 03/22/20 patient was seen and examined at bedside. She was complaining of nausea but no vomiting. Otherwise her breathing has improved compared to admission. According to the nurses she has poor appetite and upon speaking to the patient she reports that this has been the case for the past se veral years ever since her . She reports that she has lost about 70 pounds in the span of 5 to 10 years. WBC count noted to be elevated as well to 23 however she remains afebrile. Sodium improved with IV fluids which tells me that she is likely volume depleted. However she is very reluctant to be started on IV fluids since the last time she was in the hospital she got very fluid ov erloaded and according to her it took her a few weeks to recover from that. I have therefore encouraged her to drink more fluids and strive to eat more. Reason For Visit: COPD EXACERBATION, PNEUMONIA Physical Exam Vital Signs: Temp Pulse Resp BP Pulse Ox 97.9 F 110 H 22 H 142/73 H 100 03/22/20 15:05 03/22/20 15:05 03/22/20 15:05 03/22/20 15:05 03/22/20 15:05 Intake & Output 03/21/20 03/22/20 03/23/20 06:59 06:59 06:59 Intake Total 034 915 4853 Balance 335 155 2995 Weight 34.4 kg 38.3 kg General appearance: PRESENT: mild distress, thin Head exam: PRESENT: atraumatic, normocephalic Eye exam: PRESENT: EOMI, PERRLA Mouth exam: PRESENT: moist Neck exam: PRESENT: full ROM Respiratory exam: PRESENT: decreased breath sounds, symmetrical, unlabored Cardiovascular exam: PRESENT: RRR, +S1, +S2 Pulses: PRESENT: +2 pedal pulses bilateral GI/Abdominal exam: PRESENT: normal bowel sounds, soft. ABSENT: rebound, tenderness Extremities exam: PRESENT: full ROM Musculoskeletal exam: PRESENT: full ROM Neurological exam: PRESENT: alert, awake, oriented to person, oriented to place, oriented to time, oriented to situation Psychiatric exam: PRESENT: normal mood Skin exam: PRESENT: normal color Results Laboratory Results: 03/22/20 04:22 03/22/20 13:34 03/22/20 03/22/20 03/22/20 04:22 04:22 13:34 WBC 23.0 H RBC 3.52 L Hgb 11.0 L Hct 33.2 L MCV 94 MCH 31.1 MCHC 33.0 RDW 13.0 Plt Count 172 Seg Neutrophils % Not Reportable Sodium 128.6 L 130.6 L Potassium 4.6 4.8 Chloride 94 L 96 L Carbon Dioxide 25 23 Anion Gap 10 12 BUN 31 H 31 H Creatinine 0.88 0.81 Est GFR ( Amer) > 60 > 60 Glucose 83 60 L Calcium 9.0 8.6 03/20/20 03/22/20 21:41 09:57 Troponin I 0.019 0.024 Impressions: Chest X-Ray 03/20/20 21:59 IMPRESSION: 1. Marked hyperinflation with thoracic configuration consistent with COPD. 2. Interval development of subtle parenchymal opacification in the right infrahilar region. This is concerning for development of focal pneumonia. Chest/Abdomen CTA 03/20/20 23:13 IMPRESSION: There are airspace opacities at the right lung base consistent with infection. There are also bilateral reticulonodular airspace opacities which may reflect aspiration or infection. There are filling defects within the segmental lower lobe bronchi distant with aspiration or debris from infection. No filling defect is seen to suggest a pulmonary artery embolism. Moderate centrilobular and paraseptal emphysematous changes are present. Assessment and Plan - Diagnosis (1) Acute respiratory failure with hypoxia Is this a current diagnosis for this admission?: Yes Plan: Presented with shortness of breath due to COPD exacerbation Currently requiring 4 L intranasal oxygen with a target of 88 to 92% saturation CTA chest showed no PE Continue intranasal oxygen Started on Solu-Medrol Breathing treatment with DuoNeb Placed her on antibiotic with Levaquin Started on Trelegy Will need pulmonology follow-up Closely monitor respiratory parameters (2) COPD exacerbation Is this a current diagnosis for this admission?: Yes Plan: Presented with shortness of breath, cough, sputum production. Patient is a current smoker CXR Marked hyperinflation with thoracic configuration consistent with COPD. Interval development of subtle parenchymal opacification in the right infrahilar region which is concerning for development of focal pneumonia. -Continue O2 support to maintain sats between 88 to 92% -DuoNebs as needed -IV Solu-Medrol -Started on Trelegy - on levaquin fro COPD exacerbation -Advised to stop smoking (3) COPD (chronic obstructive pulmonary disease) Qualifiers: COPD type: COPD with acute exacerbation Qualified Code(s): J44.1 - Chronic obstructive pulmonary disease with (acute) exacerbation Is this a current diagnosis for this admission?: Yes Plan: -Current everyday smoker diagnosed case of COPD -Was supposed to be on home oxygen but has stopped using it since she started smoking again -Unclear if she is on any inhalers at home -I have started her on Trelegy -She will need home O2 -smoking cessation counseling done (4) Chest pain Is this a current diagnosis for this admission?: Yes Plan: Patient has reported chest pain on her initial presentation earlier this morning but it has resolved now 2 sets of cardiac enzymes have been negative Continue statin and aspirin (5) Tobacco abuse Is this a current diagnosis for this admission?: Yes Plan: -Known COPD patient current smoker consuming 1 and half pack a day -I have placed her on nicotine patch -Sensitive smoking cessation counseling done (6) Anorexia Is this a current diagnosis for this admission?: Yes Plan: -Patient has low BMI and admits to having poor appetite the past couple of years Dietary consulted for nutrition assessment and recommendation (7) Hyponatremia Is this a current diagnosis for this admission?: Yes Plan: Sodium 129>130.6 -Seems like chronic hyponatremia since he has had consistently low sodium in the past -Seems to have responded with 500 normal saline this is likely hypovolemic hyponatremia Have advised her to increase her water intake Monitor CMP daily (8) Leukocytosis Qualifiers: Leukocytosis type: unspecified Qualified Code(s): D72.829 - Elevated white blood cell count, unspecified Is this a current diagnosis for this admission?: Yes Plan: WBC count increased 16-23 She remains afebrile This is likely Solu-Medrol induced Blood culture negative Continue Levaquin - Time Time Spent with patient: 25-34 minutes Medications reviewed and adjusted accordingly: Yes Anticipated Discharge Disposition: Home with Home Health Anticipated Discharge Timeframe: within 48 hours
[2020-03-22] MEDS ORDERED: GUAIFENESIN/D-METHORPHAN (200-20 MG) SYRUP 10 ML PO PRN (21:38)
[2020-03-22] MEDS: ZOLPIDEM TARTRATE 5 MG TABLET PO SCH (21:56)
[2020-03-22] MEDS: PHARMACY COMMUNICATION ORDER MC SCH (23:31)
--- NOTE | 2020-03-22 23:51 | CDI QUERY ---
CDI Query CDI Review: Documentation in the Medical Record indicates: Height: 5 ft 3 in Weight: 38.6 kg (84.92 lbs) (Calculated BMI: 15 kg/m2 ) Also documented: Anorexia -Patient has low BMI and admits to having poor appetite the past couple of years Dietary consulted for nutrition assessment and recommendation Based on your medical judgement, please further clarify in the Progress Notes the diagnosis associated with these findings: Severe malnutrition / BMI 15 kg/m2 Moderate malnutrition / BMI 15 kg/m2 Cachexia / 15 kg/m2 Emaciation / 15 kg/m2 Undernutrition / 15 kg/m2 Other condition (please specify) None of the above / Not applicable Thank you for your consideration. CIELO Chan RN Clinical [facility] Physician Advisor
[2020-03-23 05:28] LABS: HEMATOCRIT 31.7 % (36.0-47.0); HEMOGLOBIN 10.4 g/dL (12.0-15.5); MEAN CORPUSCULAR HEMOGLOBIN 31.1 pg (27.0-33.4); MEAN CORPUSCULAR HGB CONC 32.7 g/dL (32.0-36.0); MEAN CORPUSCULAR VOLUME 95 fl (80-97); RED BLOOD COUNT 3.34 10^6/uL (3.72-5.28); RED CELL DISTRIBUTION WIDTH 12.9 % (11.5-14.0); WHITE BLOOD COUNT 21.5 10^3/uL (4.0-10.5)
[2020-03-23 05:53] LABS: ALBUMIN 2.9 g/dL (3.5-5.0); ALKALINE PHOSPHATASE 69 U/L (38-126); ANION GAP 9 (5-19); ASPARTATE AMINO TRANSFERASE 50 U/L (14-36); BILIRUBIN,DIRECT 0.3 mg/dL (0.0-0.4); BILIRUBIN,TOTAL 0.4 mg/dL (0.2-1.3); BLOOD UREA NITROGEN 40 mg/dL (7-20); CARBON DIOXIDE 23 mmol/L (22-30); CHLORIDE 97 mmol/L (98-107); POTASSIUM 4.6 mmol/L (3.6-5.0); TOTAL PROTEIN 5.5 g/dL (6.3-8.2)
[2020-03-23 05:55] LABS: GLUCOSE 59 mg/dL (75-110)
[2020-03-23 05:56] LABS: ABSOLUTE LYMPHOCYTES# (MANUAL) 1.3 10^3/uL (0.5-4.7); ABSOLUTE MONOCYTES # (MANUAL) 0.2 10^3/uL (0.1-1.4); BAND NEUTROPHILS % (MANUAL) 4 % (3-5); BASOPHILS % (MANUAL) 0 % (0-2); EOSINOPHILS % (MANUAL) 0 % (0-6); LYMPHOCYTES % (MANUAL) 6 % (13-45); MONOCYTES % (MANUAL) 1 % (3-13); SEGMENTED NEUTROPHILS % (MAN) 89 % (42-78); TOTAL CELLS COUNTED 100
[2020-03-23 05:58] LABS: PLATELET CLUMPS PRESENT; PLATELET COMMENT ADEQUATE; PLATELET COUNT 168 10^3/uL (150-450)
[2020-03-23] MEDS: ACETAMINOPHEN 325 MG TABLET PO PRN (06:14)
[2020-03-23] MEDS: ONDANSETRON HCL INJ/PF 4 MG/2 ML SDV IV PRN (06:14)
[2020-03-23] MEDS: ENOXAPARIN SODIUM INJ 30 MG/0.3 ML DISP.SYRIN SUBCUT SCH (11:10)
[2020-03-23] MEDS: METHYLPREDNISOLONE INJ 40 MG/1 ML SDV IV SCH ×2 (11:10→21:37)
[2020-03-23] MEDS: NICOTINE 21 MG/24 HR PATCH.TD24 TD SCH (11:10)
[2020-03-23] MEDS: FAMOTIDINE 20 MG TABLET PO SCH (11:10)
[2020-03-23] MEDS: ASPIRIN 81 MG TABLET, ENT COATED PO SCH (11:11)
[2020-03-23] MEDS: LIDOCAINE 5% (700 MG) TRANSDERMAL ADH..PATCH TP SCH (11:11)
[2020-03-23] MEDS: FLUTICASONE/UMECLIDIN/VILANTER 100-62.5-25 MCG/DOSE IH SCH (11:12)
[2020-03-23] MEDS ORDERED: KETOROLAC TROMETHAMINE INJ/PF 30 MG/1 ML SDV IV ONE (11:30)
[2020-03-23] MEDS: IPRATROPIUM/ALBUTEROL 0.5-2.5 MG/3 ML AMPUL NEB SCH ×3 (12:39→20:07)
[2020-03-23] MEDS: SIMVASTATIN 10 MG TABLET PO SCH (17:40)
[2020-03-23] MEDS ORDERED: HYDROCODONE/ACETAMINOPHEN 5-325 MG TABLET PO PRN (20:31)
--- NOTE | 2020-03-23 20:39 | PDOC PROGRESS REPORT ---
Subjective Date:: 03/23/20 Subjective:: BECKIE HERNANDEZ is a 85 year old female with a history of COPD who presents wi th 1 day duration of sudden worsening of shortness of breath. She states that she has been having cough productive of scanty whitish sputum. Patient was evaluated this morning at this ED after she presented with similar symptoms, she was requiring about 4 L of intranasal oxygen and process was initiated for admission for possible COPD exacerbation but the patient refused to be admitted and she was sent home with intranasal oxygen. Shortly after arrival home patient's breathing worsened and she called EMS and was brought in by the ED. This time she is agreeable to admitted. She denies any fever, chills, chest pain, palpitation, dizziness or any recent sick contact history. D1 hospital stay 03/21/20. Patient was seen and examined at bedside. She is still requiring 4L of O2 via NC but reports that her breathing is a bit better now. Denies any chest pain. According to her she still continues to smoke about 1 1/2 pack per day. I extensively counseled her to stop smoking. D2 hospital stay 03/22/20 patient was seen and examined at bedside. She was complaining of nausea but no vomiting. Otherwise her breathing has improved compared to admission. According to the nurses she has poor appetite and upon speaking to the patient she reports that this has been the case for the past se veral years ever since her . She reports that she has lost about 70 pounds in the span of 5 to 10 years. WBC count noted to be elevated as well to 23 however she remains afebrile. Sodium improved with IV fluids which tells me that she is likely volume depleted. However she is very reluctant to be started on IV fluids since the last time she was in the hospital she got very fluid ov erloaded and according to her it took her a few weeks to recover from that. I have therefore encouraged her to drink more fluids and strive to eat more. D3 hospital stay 03/23/20 Patient was seen and examined at bedside. She is still complaining of back pain and nausea, no vomiting. I gave her 1 dose of toradol and asked the nurse to put back the lidocaine patch and provide heating pack. She is coughing out more phlegm. Overall no significant improvement from previous day. WBC count still elevated but her blood cultures have been negative so far. I suspect this is still likely from IV steroids. Reason For Visit: COPD EXACERBATION, PNEUMONIA Physical Exam Vital Signs: Temp Pulse Resp BP Pulse Ox 98.2 F 94 16 127/55 H 100 03/23/20 16:20 03/23/20 20:09 03/23/20 20:09 03/23/20 16:20 03/23/20 20:09 Intake & Output 03/22/20 03/23/20 03/24/20 06:59 06:59 06:59 Intake Total 550 2080 Balance 550 2080 Weight 38.3 kg 38.9 kg 38.9 kg General appearance: PRESENT: cooperative, mild distress, thin Head exam: PRESENT: atraumatic, normocephalic Eye exam: PRESENT: EOMI, PERRLA Mouth exam: PRESENT: moist Neck exam: PRESENT: full ROM Respiratory exam: PRESENT: decreased breath sounds, rhonchi, symmetrical. ABSE NT: rales Cardiovascular exam: PRESENT: RRR, +S1, +S2 Pulses: PRESENT: +2 pedal pulses bilateral GI/Abdominal exam: PRESENT: normal bowel sounds, soft. ABSENT: rebound, tenderness Extremities exam: PRESENT: full ROM Musculoskeletal exam: PRESENT: full ROM Neurological exam: PRESENT: alert, awake, oriented to person, oriented to place, oriented to time, oriented to situation Psychiatric exam: PRESENT: normal mood Skin exam: PRESENT: normal color Results Laboratory Results: 03/23/20 04:21 03/23/20 04:21 03/23/20 03/23/20 04:21 04:21 WBC 21.5 H RBC 3.34 L Hgb 10.4 L Hct 31.7 L MCV 95 MCH 31.1 MCHC 32.7 RDW 12.9 Plt Count 168 Seg Neutrophils % Not Reportable Sodium 129.1 L Potassium 4.6 Chloride 97 L Carbon Dioxide 23 Anion Gap 9 BUN 40 H Creatinine 1.06 Est GFR ( Amer) 59 L Glucose 59 L Calcium 9.0 Total Bilirubin 0.4 AST 50 H Alkaline Phosphatase 69 Total Protein 5.5 L Albumin 2.9 L 03/20/20 03/22/20 21:41 09:57 Troponin I 0.019 0.024 Impressions: Chest X-Ray 03/20/20 21:59 IMPRESSION: 1. Marked hyperinflation with thoracic configuration consistent with COPD. 2. Interval development of subtle parenchymal opacification in the right infrahilar region. This is concerning for development of focal pneumonia. Chest/Abdomen CTA 03/20/20 23:13 IMPRESSION: There are airspace opacities at the right lung base consistent with infection. There are also bilateral reticulonodular airspace opacities which may reflect aspiration or infection. There are filling defects within the segmental lower lobe bronchi distant with aspiration or debris from infection. No filling defect is seen to suggest a pulmonary artery embolism. Moderate centrilobular and paraseptal emphysematous changes are present. Assessment and Plan - Diagnosis (1) Acute respiratory failure with hypoxia Is this a current diagnosis for this admission?: Yes Plan: Presented with shortness of breath due to COPD exacerbation Currently requiring 4 L intranasal oxygen with a target of 88 to 92% saturation CTA chest showed no PE Continue intranasal oxygen Started on Solu-Medrol Breathing treatment with DuoNeb Placed her on antibiotic with Levaquin Started on Trelegy Will need pulmonology follow-up Closely monitor respiratory parameters (2) COPD exacerbation Is this a current diagnosis for this admission?: Yes Plan: Presented with shortness of breath, cough, sputum production. Patient is a current smoker CXR Marked hyperinflation with thoracic configuration consistent with COPD. Interval development of subtle parenchymal opacification in the right infrahilar region which is concerning for development of focal pneumonia. -Continue O2 support to maintain sats between 88 to 92% -DuoNebs q4h while awake -IV Solu-Medrol -Started on Trelegy - on levaquin fro COPD exacerbation -Advised to stop smoking (3) COPD (chronic obstructive pulmonary disease) Qualifiers: COPD type: COPD with acute exacerbation Qualified Code(s): J44.1 - Chronic obstructive pulmonary disease with (acute) exacerbation Is this a current diagnosis for this admission?: Yes Plan: -Current everyday smoker diagnosed case of COPD -Was supposed to be on home oxygen but has stopped using it since she started smoking again -Unclear if she is on any inhalers at home -I have started her on Trelegy -She will need home O2 -smoking cessation counseling done - will likely need pulm rehab (4) Chest pain Is this a current diagnosis for this admission?: Yes Plan: Patient has reported chest pain on her initial presentation earlier this morning but it has resolved now - EKG sinus rhythm - repeat trop 0.019>0.024 - likely type 2 demand ischemia Continue statin and aspirin (5) Tobacco abuse Is this a current diagnosis for this admission?: Yes Plan: -Known COPD patient current smoker consuming 1 and half pack a day -I have placed her on nicotine patch -Sensitive smoking cessation counseling done (6) Hyponatremia Is this a current diagnosis for this admission?: Yes Plan: Sodium 129>130.6 -Seems like chronic hyponatremia since he has had consistently low sodium in the past -Seems to have responded with 500 normal saline this is likely hypovolemic hyponatremia Have advised her to increase her water intake Monitor CMP daily (7) Leukocytosis Qualifiers: Leukocytosis type: unspecified Qualified Code(s): D72.829 - Elevated white blood cell count, unspecified Is this a current diagnosis for this admission?: Yes Plan: WBC count increased 16-23 She remains afebrile This is likely Solu-Medrol induced Blood culture negative Continue Levaquin (8) Moderate malnutrition Is this a current diagnosis for this admission?: Yes Plan: - BMI of 15 - dietary consult - Time Time Spent with patient: 25-34 minutes Medications reviewed and adjusted accordingly: Yes Anticipated Discharge Disposition: Home with Home Health Anticipated Discharge Timeframe: TBD
[2020-03-23] MEDS: PHARMACY COMMUNICATION ORDER MC SCH (21:38)
[2020-03-23] MEDS: ZOLPIDEM TARTRATE 5 MG TABLET PO SCH (21:38)
[2020-03-23] MEDS ORDERED: LEVOFLOXACIN 750 MG/D5W RTU 750 MG/150 ML RTUPB IV SCH (22:00)
[2020-03-24] MEDS: ACETAMINOPHEN 325 MG TABLET PO PRN (00:03)
[2020-03-24] MEDS: ONDANSETRON HCL INJ/PF 4 MG/2 ML SDV IV PRN (02:17)
[2020-03-24 08:39] LABS: HEMATOCRIT 33.2 % (36.0-47.0); HEMOGLOBIN 10.9 g/dL (12.0-15.5); MEAN CORPUSCULAR HEMOGLOBIN 30.8 pg (27.0-33.4); MEAN CORPUSCULAR HGB CONC 32.7 g/dL (32.0-36.0); MEAN CORPUSCULAR VOLUME 94 fl (80-97); PLATELET COUNT 154 10^3/uL (150-450); RED BLOOD COUNT 3.53 10^6/uL (3.72-5.28); RED CELL DISTRIBUTION WIDTH 13.2 % (11.5-14.0); WHITE BLOOD COUNT 19.3 10^3/uL (4.0-10.5)
[2020-03-24 08:55] LABS: ABSOLUTE LYMPHOCYTES# (MANUAL) 0.8 10^3/uL (0.5-4.7); ABSOLUTE MONOCYTES # (MANUAL) 1.2 10^3/uL (0.1-1.4); BASOPHILS % (MANUAL) 0 % (0-2); EOSINOPHILS % (MANUAL) 0 % (0-6); LYMPHOCYTES % (MANUAL) 4 % (13-45); MONOCYTES % (MANUAL) 6 % (3-13); SEGMENTED NEUTROPHILS % (MAN) 90 % (42-78); TOTAL CELLS COUNTED 100
[2020-03-24 08:56] LABS: ALBUMIN 2.9 g/dL (3.5-5.0); ALKALINE PHOSPHATASE 54 U/L (38-126); ASPARTATE AMINO TRANSFERASE 63 U/L (14-36); BILIRUBIN,DIRECT 0.3 mg/dL (0.0-0.4); BILIRUBIN,TOTAL 0.4 mg/dL (0.2-1.3); BLOOD UREA NITROGEN 43 mg/dL (7-20); CALCIUM 9.3 mg/dL (8.4-10.2); CARBON DIOXIDE 29 mmol/L (22-30); CHLORIDE 94 mmol/L (98-107); GLUCOSE 118 mg/dL (75-110); PLATELET COMMENT ADEQUATE; POTASSIUM 5.2 mmol/L (3.6-5.0); RBC MORPHOLOGY COMMENT NORMO-CYTIC/CHROMIC; TOTAL PROTEIN 5.5 g/dL (6.3-8.2)
[2020-03-24] MEDS: IPRATROPIUM/ALBUTEROL 0.5-2.5 MG/3 ML AMPUL NEB SCH ×4 (08:56→20:15)
[2020-03-24 09:01] LABS: ANION GAP 4 (5-19)
[2020-03-24] MEDS: FAMOTIDINE 20 MG TABLET PO SCH (09:17)
[2020-03-24] MEDS: ASPIRIN 81 MG TABLET, ENT COATED PO SCH (09:17)
[2020-03-24] MEDS: ENOXAPARIN SODIUM INJ 30 MG/0.3 ML DISP.SYRIN SUBCUT SCH (09:17)
[2020-03-24] MEDS: METHYLPREDNISOLONE INJ 40 MG/1 ML SDV IV SCH ×2 (09:18→21:30)
[2020-03-24] MEDS: NICOTINE 21 MG/24 HR PATCH.TD24 TD SCH (09:18)
[2020-03-24] MEDS: LIDOCAINE 5% (700 MG) TRANSDERMAL ADH..PATCH TP SCH (09:18)
[2020-03-24] MEDS: FLUTICASONE/UMECLIDIN/VILANTER 100-62.5-25 MCG/DOSE IH SCH (09:19)
[2020-03-24] MEDS ORDERED: DIPHENHYDRAMINE HCL 50 MG/ML VIAL IV PRN (10:40)
[2020-03-24] MEDS ORDERED: AZITHROMYCIN INJ 500 MG VIAL IV SCH (11:00)
[2020-03-24] MEDS: CEFTRIAXONE 1 GM/D5W RTU 1 GM/50 ML RTUPB IV SCH (12:16)
[2020-03-24] MEDS: METOCLOPRAMIDE HCL INJ/PF 10 MG/2 ML SDV IV SCH ×3 (12:16→23:06)
--- NOTE | 2020-03-24 13:23 | EKG REPORT ---
SEVERITY:- ABNORMAL ECG - SINUS TACHYCARDIA LEFT ATRIAL ABNORMALITY ABNRM R PROG, CONSIDER ASMI OR LEAD PLACEMENT BORDERLINE ST ELEVATION, INFERIOR LEADS : Confirmed by: Alvina Turner 24-Mar-2020 13:22:20
--- NOTE | 2020-03-24 14:12 | PDOC PROGRESS REPORT ---
Subjective Subjective:: BECKIE HERNANDEZ is a 85 year old female with a history of COPD who presents with 1 day duration of sudden worsening of shortness of breath. She states that she has been having cough productive of scanty whitish sputum. Patient was evaluated this morning at this ED after she presented with similar symptoms, she was requiring about 4 L of intranasal oxygen and process was initiated for admission for possible COPD exacerbation but the patient refused to be admitted and she was sent home with intranasal oxygen. Shortly after arrival home patient's breathing worsened and she called EMS and was brought in by the ED. This time she is agreeable to admitted. She denies any fever, chills, chest pain, palpitation, dizziness or any recent sick contact history. D1 hospital stay 03/21/20. Patient was seen and examined at bedside. She is still requiring 4L of O2 via NC but reports that her breathing is a bit better now. Denies any chest pain. According to her she still continues to smoke about 1 1/2 pack per day. I extensively counseled her to stop smoking. D2 hospital stay 03/22/20 patient was seen and examined at bedside. She was complaining of nausea but no vomiting. Otherwise her breathing has improved compared to admission. According to the nurses she has poor appetite and upon speaking to the patient she reports that this has been the case for the past several years ever since her . She reports that she has lost about 70 pounds in the span of 5 to 10 years. WBC count noted to be elevated as well to 23 however she remains afebrile. Sodium improved with IV fluids which tells me that she is likely volume depleted. However she is very reluctant to be started on IV fluids since the last time she was in the hospital she got very fluid overloaded and according to her it took her a few weeks to recover from that. I have therefore encouraged her to drink more fluids and strive to eat more. D3 hospital stay 03/23/20 Patient was seen and examined at bedside. She is still complaining of back pain and nausea, no vomiting. I gave her 1 dose of toradol and asked the nurse to put back the lidocaine patch and provide heating pack. She is coughing out more phlegm. Overall no significant improvement from previous day. WBC count still elevated but her blood cultures have been negative so far. I suspect this is still likely from IV steroids. D4 Hospital stay 03/24/20 Patient was seen and examined at bedside. She still has significant nausea precluding her from eating. i have reviewed her meds and she is mostly in her home meds, besides the levaquin. I have switched her abx to rocephin and azithro, added reglan and benadryl to help with her nausea. Her breathing is stable. Reason For Visit: COPD EXACERBATION, PNEUMONIA Physical Exam Vital Signs: Temp Pulse Resp BP Pulse Ox 98.2 F 94 16 143/63 H 95 03/24/20 12:11 03/24/20 12:20 03/24/20 12:20 03/24/20 12:11 03/24/20 12:20 Intake & Output 03/23/20 03/24/20 03/25/20 06:59 06:59 06:59 Intake Total 2080 150 Balance 2080 150 Weight 38.9 kg 38.7 kg General appearance: PRESENT: cooperative, mild distress Head exam: PRESENT: atraumatic, normocephalic Eye exam: PRESENT: EOMI, PERRLA Mouth exam: PRESENT: moist Neck exam: PRESENT: full ROM Respiratory exam: PRESENT: decreased breath sounds, symmetrical, unlabored Cardiovascular exam: PRESENT: RRR, +S1, +S2 Pulses: PRESENT: +2 pedal pulses bilateral Extremities exam: PRESENT: full ROM Musculoskeletal exam: PRESENT: full ROM Neurological exam: PRESENT: alert, awake, oriented to person, oriented to place, oriented to time, oriented to situation Psychiatric exam: PRESENT: normal mood Skin exam: PRESENT: normal color Results Laboratory Results: 03/24/20 08:20 03/24/20 08:20 03/24/20 03/24/20 08:20 08:20 WBC 19.3 H RBC 3.53 L Hgb 10.9 L Hct 33.2 L MCV 94 MCH 30.8 MCHC 32.7 RDW 13.2 Plt Count 154 Seg Neutrophils % Not Reportable Sodium 127.2 L Potassium 5.2 H Chloride 94 L Carbon Dioxide 29 Anion Gap 4 L BUN 43 H Creatinine 0.94 Est GFR ( Amer) > 60 Glucose 118 H Calcium 9.3 Total Bilirubin 0.4 AST 63 H Alkaline Phosphatase 54 Total Protein 5.5 L Albumin 2.9 L 03/22/20 16:00 Sputum Gram Stain - Final 03/20/20 03/22/20 03/23/20 21:41 09:57 20:37 Troponin I 0.019 0.024 0.028 Impressions: Chest X-Ray 03/20/20 21:59 IMPRESSION: 1. Marked hyperinflation with thoracic configuration consistent with COPD. 2. Interval development of subtle parenchymal opacification in the right infrahilar region. This is concerning for development of focal pneumonia. Chest/Abdomen CTA 03/20/20 23:13 IMPRESSION: There are airspace opacities at the right lung base consistent with infection. There are also bilateral reticulonodular airspace opacities which may reflect aspiration or infection. There are filling defects within the segmental lower lobe bronchi distant with aspiration or debris from infection. No filling defect is seen to suggest a pulmonary artery embolism. Moderate centrilobular and paraseptal emphysematous changes are present. Assessment and Plan - Diagnosis (1) Acute respiratory failure with hypoxia Is this a current diagnosis for this admission?: Yes Plan: Presented with shortness of breath due to COPD exacerbation Currently requiring 4 L intranasal oxygen with a target of 88 to 92% saturation CTA chest showed no PE Continue intranasal oxygen continue Solu-Medrol Breathing treatment with DuoNeb q4hwa switched ceftri/azithro Started on Trelegy Will need pulmonology follow-up Closely monitor respiratory parameters (2) COPD exacerbation Is this a current diagnosis for this admission?: Yes Plan: Presented with shortness of breath, cough, sputum production. Patient is a current smoker CXR Marked hyperinflation with thoracic configuration consistent with COPD. Interval development of subtle parenchymal opacification in the right infrahilar region which is concerning for development of focal pneumonia. -Continue O2 support to maintain sats between 88 to 92% -DuoNebs q4h while awake -IV Solu-Medrol -Started on Trelegy -switched to ceftri/azithro for COPD exacerbation -Advised to stop smoking (3) COPD (chronic obstructive pulmonary disease) Qualifiers: COPD type: COPD with acute exacerbation Qualified Code(s): J44.1 - Chronic obstructive pulmonary disease with (acute) exacerbation Is this a current diagnosis for this admission?: Yes Plan: -Current everyday smoker diagnosed case of COPD -Was supposed to be on home oxygen but has stopped using it since she started smoking again -Unclear if she is on any inhalers at home -I have started her on Trelegy -She will need home O2 -smoking cessation counseling done - will likely need pulm rehab (4) Chest pain Is this a current diagnosis for this admission?: Yes Plan: Patient has reported chest pain on her initial presentation earlier this morning but it has resolved now - EKG sinus rhythm - repeat trop 0.019>0.024 - likely type 2 demand ischemia Continue statin and aspirin (5) Tobacco abuse Is this a current diagnosis for this admission?: Yes Plan: -Known COPD patient current smoker consuming 1 and half pack a day -I have placed her on nicotine patch -Sensitive smoking cessation counseling done (6) Hyponatremia Is this a current diagnosis for this admission?: Yes Plan: Sodium 129>130.6 -Seems like chronic hyponatremia since he has had consistently low sodium in the past -Seems to have responded with 500 normal saline this is likely hypovolemic hyponatremia Have advised her to increase her water intake Monitor CMP daily (7) Leukocytosis Qualifiers: Leukocytosis type: unspecified Qualified Code(s): D72.829 - Elevated white blood cell count, unspecified Is this a current diagnosis for this admission?: Yes Plan: WBC count increased 16-23 She remains afebrile This is likely Solu-Medrol induced Blood culture negative Continue Levaquin (8) Moderate malnutrition Is this a current diagnosis for this admission?: Yes Plan: - BMI of 15 - dietary consult - started on dronabinol - Time Time Spent with patient: 25-34 minutes Medications reviewed and adjusted accordingly: Yes Anticipated Discharge Disposition: Home with Home Health Anticipated Discharge Timeframe: TBD
[2020-03-24] MEDS: AZITHROMYCIN 500 MG in DEXTROSE 5%-WATER 250 ML IV SCH (17:41)
[2020-03-24] MEDS: SIMVASTATIN 10 MG TABLET PO SCH (17:42)
[2020-03-24] MEDS: DRONABINOL 2.5 MG CAPSULE PO SCH ×2 (17:42→23:06)
[2020-03-24] MEDS: ZOLPIDEM TARTRATE 5 MG TABLET PO SCH (21:30)
[2020-03-24] MEDS: PHARMACY COMMUNICATION ORDER MC SCH (21:33)
[2020-03-25] MEDS: DRONABINOL 2.5 MG CAPSULE PO SCH ×4 (05:23→23:33)
[2020-03-25] MEDS: METOCLOPRAMIDE HCL INJ/PF 10 MG/2 ML SDV IV SCH ×4 (05:23→23:33)
[2020-03-25] MEDS ORDERED: NORMAL SALINE 1000 ML 500 ML IV ONE (07:49)
[2020-03-25] MEDS: IPRATROPIUM/ALBUTEROL 0.5-2.5 MG/3 ML AMPUL NEB SCH ×4 (08:09→19:47)
[2020-03-25] MEDS: ENOXAPARIN SODIUM INJ 30 MG/0.3 ML DISP.SYRIN SUBCUT SCH (09:34)
[2020-03-25] MEDS: ASPIRIN 81 MG TABLET, ENT COATED PO SCH (09:34)
[2020-03-25] MEDS: FAMOTIDINE 20 MG TABLET PO SCH (09:34)
[2020-03-25] MEDS: METHYLPREDNISOLONE INJ 40 MG/1 ML SDV IV SCH ×2 (09:35→21:25)
[2020-03-25] MEDS: LIDOCAINE 5% (700 MG) TRANSDERMAL ADH..PATCH TP SCH (09:35)
[2020-03-25] MEDS: FLUTICASONE/UMECLIDIN/VILANTER 100-62.5-25 MCG/DOSE IH SCH (09:36)
[2020-03-25] MEDS: NICOTINE 21 MG/24 HR PATCH.TD24 TD SCH (09:36)
[2020-03-25 11:19] LABS: ALBUMIN 2.8 g/dL (3.5-5.0); ALKALINE PHOSPHATASE 58 U/L (38-126); ANION GAP 5 (5-19); ASPARTATE AMINO TRANSFERASE 66 U/L (14-36); BILIRUBIN,DIRECT 0.2 mg/dL (0.0-0.4); BILIRUBIN,TOTAL 0.3 mg/dL (0.2-1.3); BLOOD UREA NITROGEN 27 mg/dL (7-20); CARBON DIOXIDE 28 mmol/L (22-30); CHLORIDE 94 mmol/L (98-107); GLUCOSE 94 mg/dL (75-110); POTASSIUM 4.3 mmol/L (3.6-5.0)
[2020-03-25] MEDS: CEFTRIAXONE 1 GM/D5W RTU 1 GM/50 ML RTUPB IV SCH (12:21)
--- NOTE | 2020-03-25 13:43 | PDOC PROGRESS REPORT ---
Subjective Date:: 03/25/20 Subjective:: BECKIE HERNANDEZ is a 85 year old female with a history of COPD who presents wi th 1 day duration of sudden worsening of shortness of breath. She states that she has been having cough productive of scanty whitish sputum. Patient was evaluated this morning at this ED after she presented with similar symptoms, she was requiring about 4 L of intranasal oxygen and process was initiated for admission for possible COPD exacerbation but the patient refused to be admitted and she was sent home with intranasal oxygen. Shortly after arrival home patient's breathing worsened and she called EMS and was brought in by the ED. This time she is agreeable to admitted. She denies any fever, chills, chest pain, palpitation, dizziness or any recent sick contact history. D1 hospital stay 03/21/20. Patient was seen and examined at bedside. She is still requiring 4L of O2 via NC but reports that her breathing is a bit better now. Denies any chest pain. According to her she still continues to smoke about 1 1/2 pack per day. I extensively counseled her to stop smoking. D2 hospital stay 03/22/20 patient was seen and examined at bedside. She was complaining of nausea but no vomiting. Otherwise her breathing has improved compared to admission. According to the nurses she has poor appetite and upon speaking to the patient she reports that this has been the case for the past se veral years ever since her . She reports that she has lost about 70 pounds in the span of 5 to 10 years. WBC count noted to be elevated as well to 23 however she remains afebrile. Sodium improved with IV fluids which tells me that she is likely volume depleted. However she is very reluctant to be started on IV fluids since the last time she was in the hospital she got very fluid ov erloaded and according to her it took her a few weeks to recover from that. I have therefore encouraged her to drink more fluids and strive to eat more. D3 hospital stay 03/23/20 Patient was seen and examined at bedside. She is still complaining of back pain and nausea, no vomiting. I gave her 1 dose of toradol and asked the nurse to put back the lidocaine patch and provide heating pack. She is coughing out more phlegm. Overall no significant improvement from previous day. WBC count still elevated but her blood cultures have been negative so far. I suspect this is still likely from IV steroids. D4 Hospital stay 03/24/20 Patient was seen and examined at bedside. She still has significant nausea precluding her from eating. i have reviewed her meds and she is mostly in her home meds, besides the levaquin. I have switched her abx to rocephin and azithro, added reglan and benadryl to help with her nausea. Her breathing is stable. D5 hospital stay 03/25/20 Patient was seen and examined at bedside.She feels marginally better, less nauseous. Breathing is improving. She denied any chest pain, no fever, no cough. I again encouraged her to eat more. Reason For Visit: COPD EXACERBATION, PNEUMONIA Physical Exam Vital Signs: Temp Pulse Resp BP Pulse Ox 97.9 F 107 H 16 171/82 H 96 03/25/20 11:34 03/25/20 12:04 03/25/20 12:04 03/25/20 11:34 03/25/20 12:04 Intake & Output 03/24/20 03/25/20 03/26/20 06:59 06:59 06:59 Intake Total 150 300 600 Balance 150 300 600 Weight 38.7 kg 38.4 kg General appearance: PRESENT: cooperative, mild distress, thin Head exam: PRESENT: atraumatic, normocephalic Eye exam: PRESENT: EOMI, PERRLA Mouth exam: PRESENT: moist Neck exam: PRESENT: full ROM Respiratory exam: PRESENT: decreased breath sounds, symmetrical. ABSENT: wheezes Cardiovascular exam: PRESENT: RRR, +S1, +S2 GI/Abdominal exam: PRESENT: normal bowel sounds, soft. ABSENT: rebound, tenderness Extremities exam: PRESENT: full ROM Musculoskeletal exam: PRESENT: full ROM Neurological exam: PRESENT: alert, awake, oriented to person, oriented to place, oriented to time, oriented to situation Psychiatric exam: PRESENT: normal mood Skin exam: PRESENT: normal color Results Laboratory Results: 03/24/20 08:20 03/25/20 10:43 03/25/20 10:43 Sodium 126.9 L Potassium 4.3 Chloride 94 L Carbon Dioxide 28 Anion Gap 5 BUN 27 H Creatinine 0.74 Est GFR ( Amer) > 60 Glucose 94 Calcium 9.0 Total Bilirubin 0.3 AST 66 H Alkaline Phosphatase 58 Total Protein 5.0 L Albumin 2.8 L 03/22/20 16:00 Sputum Gram Stain - Final 03/22/20 16:00 Sputum Sputum Culture - Final C.albicans/C.dubliniensis Reduced Normal Nani 03/20/20 03/22/20 03/23/20 21:41 09:57 20:37 Troponin I 0.019 0.024 0.028 Impressions: Chest X-Ray 03/20/20 21:59 IMPRESSION: 1. Marked hyperinflation with thoracic configuration consistent with COPD. 2. Interval development of subtle parenchymal opacification in the right infrahilar region. This is concerning for development of focal pneumonia. Chest/Abdomen CTA 03/20/20 23:13 IMPRESSION: There are airspace opacities at the right lung base consistent with infection. There are also bilateral reticulonodular airspace opacities which may reflect aspiration or infection. There are filling defects within the segmental lower lobe bronchi distant with aspiration or debris from infection. No filling defect is seen to suggest a pulmonary artery embolism. Moderate centrilobular and paraseptal emphysematous changes are present. Assessment and Plan - Diagnosis (1) Acute respiratory failure with hypoxia Is this a current diagnosis for this admission?: Yes Plan: Presented with shortness of breath due to COPD exacerbation Currently requiring 4 L intranasal oxygen with a target of 88 to 92% saturation CTA chest showed no PE Continue intranasal oxygen continue Solu-Medrol Breathing treatment with DuoNeb q4hwa switched ceftri/azithro Started on Trelegy Will need pulmonology follow-up Closely monitor respiratory parameters (2) COPD (chronic obstructive pulmonary disease) Qualifiers: COPD type: COPD with acute exacerbation Qualified Code(s): J44.1 - Chronic obstructive pulmonary disease with (acute) exacerbation Is this a current diagnosis for this admission?: Yes Plan: -Current everyday smoker diagnosed case of COPD -Was supposed to be on home oxygen but has stopped using it since she started smoking again -Unclear if she is on any inhalers at home -I have started her on Trelegy -She will need home O2 -smoking cessation counseling done - will likely need pulm rehab (3) COPD exacerbation Is this a current diagnosis for this admission?: Yes Plan: Presented with shortness of breath, cough, sputum production. Patient is a current smoker CXR Marked hyperinflation with thoracic configuration consistent with COPD. Interval development of subtle parenchymal opacification in the right infrahilar region which is concerning for development of focal pneumonia. -Continue O2 support to maintain sats between 88 to 92% -DuoNebs q4h while awake -IV Solu-Medrol -Started on Trelegy -switched to ceftri/azithro for COPD exacerbation -Advised to stop smoking (4) Hyponatremia Is this a current diagnosis for this admission?: Yes Plan: Sodium 129>130.6>126 -Seems like chronic hyponatremia since he has had consistently low sodium in the past -Seems to have responded with 500 normal saline this is likely hypovolemic hyponatremia Have advised her to increase her water intake - will start her on IV fluids Monitor CMP daily (5) Chest pain Is this a current diagnosis for this admission?: Yes Plan: Patient has reported chest pain on her initial presentation earlier this morning but it has resolved now - EKG sinus rhythm - repeat trop 0.019>0.024 - likely type 2 demand ischemia Continue statin and aspirin (6) Tobacco abuse Is this a current diagnosis for this admission?: Yes Plan: -Known COPD patient current smoker consuming 1 and half pack a day -I have placed her on nicotine patch -Sensitive smoking cessation counseling done (7) Leukocytosis Qualifiers: Leukocytosis type: unspecified Qualified Code(s): D72.829 - Elevated white blood cell count, unspecified Is this a current diagnosis for this admission?: Yes Plan: WBC count increased 16-23 She remains afebrile This is likely Solu-Medrol induced Blood culture negative Continue Levaquin (8) Moderate malnutrition Is this a current diagnosis for this admission?: Yes Plan: - BMI of 15 - dietary consult - started on dronabinol - Time Time Spent with patient: 25-34 minutes Medications reviewed and adjusted accordingly: Yes Anticipated Discharge Disposition: Home with Home Health Anticipated Discharge Timeframe: TBD
[2020-03-25] MEDS: SIMVASTATIN 10 MG TABLET PO SCH (17:27)
[2020-03-25] MEDS: AZITHROMYCIN 500 MG in DEXTROSE 5%-WATER 250 ML IV SCH (17:31)
[2020-03-25] MEDS: ZOLPIDEM TARTRATE 5 MG TABLET PO SCH (21:25)
[2020-03-25] MEDS: PHARMACY COMMUNICATION ORDER MC SCH (21:27)
[2020-03-26] MEDS: METOCLOPRAMIDE HCL INJ/PF 10 MG/2 ML SDV IV SCH ×2 (05:26→11:00)
[2020-03-26] MEDS: DRONABINOL 2.5 MG CAPSULE PO SCH ×2 (05:26→11:00)
[2020-03-26] MEDS: IPRATROPIUM/ALBUTEROL 0.5-2.5 MG/3 ML AMPUL NEB SCH (08:23)
[2020-03-26 08:34] VITALS: BP 164/78
[2020-03-26] MEDS ORDERED: NORMAL SALINE 1000 ML 1,000 ML IV PRN (09:00)
[2020-03-26] MEDS: NICOTINE 21 MG/24 HR PATCH.TD24 TD SCH (09:41)
[2020-03-26] MEDS: LIDOCAINE 5% (700 MG) TRANSDERMAL ADH..PATCH TP SCH ×2 (09:42→09:44)
[2020-03-26] MEDS: ASPIRIN 81 MG TABLET, ENT COATED PO SCH (09:42)
[2020-03-26] MEDS: FAMOTIDINE 20 MG TABLET PO SCH (09:42)
[2020-03-26] MEDS: ENOXAPARIN SODIUM INJ 30 MG/0.3 ML DISP.SYRIN SUBCUT SCH (09:42)
[2020-03-26] MEDS: METHYLPREDNISOLONE INJ 40 MG/1 ML SDV IV SCH ×2 (09:42→09:45)
[2020-03-26] MEDS: FLUTICASONE/UMECLIDIN/VILANTER 100-62.5-25 MCG/DOSE IH SCH (09:44)
--- NOTE | 2020-03-26 10:46 | Left Against Medical Advice ---
Against Medical Advice Admission Date/Time: 03/21/20 01:59 Primary Care Provider: LORI WHITE PA-C Date of Patient Emigration: 03/26/20 - Diagnosis: (1) Acute respiratory failure with hypoxia Is this a current diagnosis for this admission?: Yes (2) COPD (chronic obstructive pulmonary disease) Is this a current diagnosis for this admission?: Yes (3) COPD exacerbation Is this a current diagnosis for this admission?: Yes (4) Hyponatremia Is this a current diagnosis for this admission?: Yes (5) Chest pain Is this a current diagnosis for this admission?: Yes (6) Tobacco abuse Is this a current diagnosis for this admission?: Yes (7) Leukocytosis Is this a current diagnosis for this admission?: Yes (8) Moderate malnutrition Is this a current diagnosis for this admission?: Yes - Summary: Summary: Please see Admission and Progress Notes as well.I prescribed her Breo -ellipta for COPD and advised her to stop smoking. Unfortunately she is insisting on going home. BECKIE HERNANDEZ is a 85 F, who LEFT AGAINST MEDICAL ADVICE. The Patient was admitted on 03/21/20 01:59.
[2020-03-26] MEDS: CEFTRIAXONE 1 GM/D5W RTU 1 GM/50 ML RTUPB IV SCH (11:00)
[2020-03-26] MEDS ORDERED: FLUCONAZOLE 100 MG TABLET PO ONE (11:30)
== END 2020-03-26 11:40 | disposition left against medical advice (07) | DRG 189 ==
LOC: ER 21:04 → EH 03-21 01:59 → 4N 03-21 03:05
PROVIDERS: ADMIT Student in an Organized Health Care Education/Training Program; ATTEND Internal Medicine
DX: J96.01 Acute respiratory failure with hypoxia (principal); J44.1 Chronic obstructive pulmonary disease with (acute) exacerbation; E87.1 Hypo-osmolality and hyponatremia; E44.0 Moderate protein-calorie malnutrition; Z68.1 Body mass index [BMI] 19.9 or less, adult; Z20.828 Contact with and (suspected) exposure to other viral communicable diseases; R07.9 Chest pain, unspecified; F17.210 Nicotine dependence, cigarettes, uncomplicated; D72.829 Elevated white blood cell count, unspecified; R11.0 Nausea; M54.9 Dorsalgia, unspecified; Z66 Do not resuscitate; Z79.82 Long term (current) use of aspirin; Z79.899 Other long term (current) drug therapy; Z99.81 Dependence on supplemental oxygen; Z90.49 Acquired absence of other specified parts of digestive tract; Z95.5 Presence of coronary angioplasty implant and graft; Z91.19 Patient's noncompliance with other medical treatment and regimen
CPT/HCPCS: 36415; 71045; 71275; 80048; 80053; 82803; 82962; 84484; 85025; 85379; 87040; 87070; 87205; 93005; 93010; 94640; A9270-GY; J0456; J0696; J1650; J1885; J1956; J2405; J2765; J2920; J3490; J7030; J7060